=== PATIENT | female | born 1930 | race Caucasian/White ===

== ENCOUNTER 2018-07-28 15:31 | Emergency (ER) | payer MEDICARE, OTHER ==
[~2018-07-28] VITALS: Ht 160 cm; Wt 49.9 kg
[2018-07-28 15:31] VITALS: BP 122/62
[~2018-07-28 15:31] MED LIST: UNOBMED
--- NOTE | 2018-07-28 15:31 | NUR ---
ED Nurse Note: PT BROUGHT IN BY AMBULANCE FROM [facility]. AOX2. PT PRESENTS WITH LACERATION TO RIGHT LOWER EXTREMITY - UNKNOWN ETIOLOGY. PER EMS, EVENT WAS UNWITNESSED. PT PRESENTS WITH 2 INCH PACERATION TO RIGHT LEG. SITE NOT ACTIVELY BLEEDING. CIRCULATION AND SENSATION INTACT, CAP REFILL <3 SECONDS, FULL ROM OF EXTREMITY, AND 5/5 MUSCLE STRENGTH.
[2018-07-28] MEDS ORDERED: Lidocaine 1% 10mg/ml/Epi 0.005mg/ml 30ml vial INJ ONE ×2 (15:39→15:45)
[2018-07-28] MEDS ORDERED: Tetanus/Diptheria/Pertussis Vaccine 0.5ml Syr IM ONE (15:45)
--- NOTE | 2018-07-28 16:04 | Emergency Room Report ---
History of Present Illness General Chief Complaint: Laceration Source: Patient, EMS Present Illness HPI Patient is an 87-year-old female brought in by EMS after recent injury while sitting her wheelchair. Prior history of dementia. Patient was noted to have right lower extremity injury. Patient had not had a recent tetanus vaccine. Patient had no other injuries. She had not fallen. History is limited by patient's dementia. Allergies: Coded Allergies: ASPIRIN (Verified Allergy, Unknown, Altered Mental Status, 07/28/18) Patient History Now: No Nursing Documentation-[facility] Past Medical History: No History, Except For Hx Cardiac Problems: Yes Hx Hypertension: Yes Hx Diabetes: Yes - DM II Hx Cancer: No Review of Systems All Other Systems: limited - by mental status Physical Exam Vital Signs Date Time Temp Pulse Resp B/P (MAP) Pulse Ox O2 Delivery O2 Flow Rate FiO2 07/28/18 15:25 97.2 54 18 119/53 95 Room Air General Appearance: Chronically Ill Head: normocephalic, atraumatic ENT: normal voice, other - decreased hearing Neck: full range of motion, supple Respiratory: no respiratory distress, speaking full sentences Cardiovascular #1: normal peripheral pulses Musculoskeletal: decreased range of mation Neurologic: alert, oriented x3, normal gait Psychiatric: mood/affect normal Skin: normal inspection, normal color, no rash, laceration - right lower extremity flap, 3cm Procedures Laceration/Wound Repair Laceration/Wound Repair : Consent: Emergent Wound Location: lower extremity Wound's Depth, Shape: superficial Wound Length (cm): 3 Wound Explored: clean Irrigated w/ Saline (ccs): 50 Betadine Prep?: Yes Anesthesia: Lidocaine w/ Epi Volume Anesthetic (ccs): 4 Wound Debrided: minimal Wound Repaired With: sutures Suture Size/Type: 4:0 Number of Sutures: 7 Layer Closure?: No Sterile Dressing Applied?: Yes Patient Tolerated: Well Complications: None Medical Decision Making Diagnostic Impression: Primary Impression: Laceration ER Course Patient presented for lower extremity injury. Differential diagnosis include was not limited to foreign body, arterial injury, vascular insufficiency among others. Patient has a benign exam and does not appear to require any further imaging or laboratory testing at this time patient was noted to have prior history of dementia. Patient was given tetanus vaccine. Patient's laceration was irrigated and closed with a sterile technique. Patient tolerated this well. I used absorbable sutures. Patient be sent back to nursing facility. Last Vital Signs Date Time Temp Pulse Resp B/P (MAP) Pulse Ox O2 Delivery O2 Flow Rate FiO2 07/28/18 15:31 98.1 62 17 122/62 98 Room Air Kang Tang MD Jul 28, 2018 16:04
[2018-07-28] MEDS ORDERED: Bacitracin Oint UD TOPIC ONE ×2 (16:14→16:30)
--- NOTE | 2018-07-28 16:18 | NUR ---
ED Nurse Note: LACERATION SUTURED BY DR. FRYE. BACITRACIN APPLIED TO SUTURE SITE. MYESHA EMT AT BEDSIDE TO WRAP SITE.
--- NOTE | 2018-07-28 16:28 | NUR ---
ED Nurse Note: [facility]. REPORT GIVEN TO BARBIE MCRAE. FACILITY READY TO ACCEPT PT. ETA FOR AMBULANCE [id number].
--- NOTE | 2018-07-28 17:13 | NUR ---
ED Nurse Note: [facility] AT BEDSIDE FOR PT TRANSPORT. REPORT GIVEN TO EMS. PT TAKEN BACK TO [facility] VIA AMBULANCE WITH ALL BELONGINGS ACCOMPANIED BY EMS.
[2018-07-28 17:14] VITALS: BP 128/64
== END 2018-07-28 17:20 | disposition home or self-care (01) ==
LOC: EDBD 15:31 → EMR 16:03
DX: S81.811A Laceration without foreign body, right lower leg, initial encounter (principal); X58.XXXA Exposure to other specified factors, initial encounter; Y92.199 Unspecified place in other specified residential institution as the place of occurrence of the external cause; Z23 Encounter for immunization; E11.9 Type 2 diabetes mellitus without complications; I10 Essential (primary) hypertension; Z88.6 Allergy status to analgesic agent
CPT/HCPCS: 90471; 90715; 99283

== ENCOUNTER 2018-10-05 13:47 | Inpatient (IN) | payer MEDICARE, OTHER ==
[~2018-10-05] VITALS: Ht 154.9 cm; Wt 54.6 kg
[2018-10-05 15:01] LABS: APPEARANCE,URINE CLOUDY; BILIRUBIN, URINE 1+ (NEGATIVE); COLOR,URINE BROWN; GLUCOSE, URINE (UA) NEGATIVE (NEGATIVE); KETONES,URINE NEGATIVE (NEGATIVE); LEUKOCYTE ESTERASE ,URINE 3+ (NEGATIVE); NITRITE,URINE POSITIVE (NEGATIVE); PH,URINE 5 (4.5-8.0); PROTEIN,URINE 2+ (NEGATIVE); UROBILINOGEN,URINE 1 MG/DL (0.0-1.0)
[2018-10-05 15:06] VITALS: BP 142/52
[2018-10-05 15:09] LABS: HEMOGLOBIN 14.3 G/DL (12.0-16.0); MEAN CORPUSCULAR VOLUME 96 FL (80-99); PLATELET COUNT 173 K/UL (150-450); RED BLOOD COUNT 4.59 M/UL (4.20-5.40); RED CELL DISTRIBUTION WIDTH 13.6 % (11.6-14.8)
[2018-10-05 15:11] LABS: ANION GAP 9 mmol/L (5-15); BLOOD UREA NITROGEN 30 mg/dL (7-18); CALCIUM 9.6 MG/DL (8.5-10.1); CARBON DIOXIDE 28 MMOL/L (21-32); CHLORIDE 106 MMOL/L (98-107); CREATININE 1.1 MG/DL (0.55-1.30); POTASSIUM 4.1 MMOL/L (3.5-5.1); SODIUM 143 MMOL/L (136-145)
[2018-10-05 15:19] LABS: WHITE BLOOD COUNT 26.1 K/UL (4.8-10.8)
[2018-10-05 15:22] LABS: ALANINE AMINOTRANSFERASE 58 U/L (12-78); ALBUMIN 3.3 G/DL (3.4-5.0); ALBUMIN/GLOBULIN RATIO 0.8 (1.0-2.7); ALKALINE PHOSPHATASE 108 U/L (46-116); ASPARTATE AMINO TRANSFERASE 20 U/L (15-37); BILIRUBIN,TOTAL 0.3 MG/DL (0.2-1.0); CKMB 1.8 NG/ML (0.0-3.6); CREATINE KINASE 45 U/L (26-308)
[2018-10-05] MEDS ORDERED: cefTRIAXone 1 GM in NS 55 ML IVPB ONE (15:30)
--- NOTE | 2018-10-05 15:38 | Diagnostic Imaging Report ---
Indication: Shortness of breath Technique: One view of the chest Comparison: 08/26/2012 Findings: Suboptimal inspiration. The heart is borderline enlarged. Lungs and pleural spaces are clear. There is mild thoracolumbar scoliotic deformity. No significant interim change. Impression: No acute process
--- NOTE | 2018-10-05 16:03 | Emergency Room Report ---
History of Present Illness General Chief Complaint: Abnormal Labs Source: Patient, Medical Record Present Illness HPI 87-year-old female presents ED for evaluation. Patient [facility] by EMS from [facility] for abnormal labs. Had blood work done a few days ago which showed high white cell count. Upon arrival patient states she feels okay. Denies any fevers or chills. Denies any chest pain. Denies any cough. No other aggravating or relieving factors. Denies any other associated symptoms Allergies: Coded Allergies: ASPIRIN (Verified Allergy, Unknown, Altered Mental Status, 07/28/18) Patient History Past Medical History: DM, HTN Past Surgical History: none Pertinent Family History: none Social History: Denies: smoking, alcohol use, drug use Now: No Immunizations: UTD Reviewed Nursing Documentation: PMH: Agreed; PSxH: Agreed Nursing Documentation-PMH Past Medical History: No History, Except For Hx Cardiac Problems: Yes Hx Hypertension: Yes Hx Diabetes: Yes - DM II Hx Cancer: No Review of Systems All Other Systems: negative except mentioned in HPI Physical Exam Vital Signs Date Time Temp Pulse Resp B/P (MAP) Pulse Ox O2 Delivery O2 Flow Rate FiO2 10/05/18 13:40 98.4 57 18 122/57 95 Room Air Sp02 EP Interpretation: reviewed, normal General Appearance: no apparent distress, alert, GCS 15, non-toxic Head: normocephalic, atraumatic Eyes: bilateral eye normal inspection, bilateral eye PERRL ENT: hearing grossly normal, normal pharynx, no angioedema, normal voice Neck: full range of motion, supple/symm/no masses Respiratory: chest non-tender, lungs clear, normal breath sounds, speaking full sentences Cardiovascular #1: regular rate, rhythm, no edema Cardiovascular #2: 2+ carotid (R), 2+ carotid (L), 2+ radial (R), 2+ radial (L) , 2+ dorsalis pedis (R), 2+ dorsalis pedis (L) Gastrointestinal: normal bowel sounds, non tender, soft, non-distended, no guarding, no rebound Rectal: deferred Genitourinary: normal inspection, no CVA tenderness Musculoskeletal: back normal, gait/station normal, normal range of motion, non- tender Neurologic: alert, oriented x3, responsive, motor strength/tone normal, sensory intact, speech normal Psychiatric: judgement/insight normal, memory normal, mood/affect normal, no suicidal/homicidal ideation Reflexes: 3+ bicep (R), 3+ bicep (L), 3+ tricep (R), 3+ tricep (L), 3+ knee (R) , 3+ knee (L) Skin: normal color, warm/dry, well hydrated, rash - erythematous papular rash to arms, chest Lymphatic: no adenopathy Medical Decision Making Diagnostic Impression: Primary Impression: UTI (urinary tract infection) Qualified Codes: N39.0 - Urinary tract infection, site not specified Additional Impressions: Rash Leukocytosis Qualified Codes: D72.829 - Elevated white blood cell count, unspecified ER Course Hospital Course 87 yo F presents with elevated WBC count on recent labs, also has rash Differential diagnoses include: Pneumonia, UTI, sepsis, dehydration, VT/ unstable angina Clinical course Patient placed on stretcher. On monitoring manager with stable vitals are ED course. After initial history and physical, I ordered labs, IV fluids, EKG, chest x-ray, blood cultures, UA. Labs - electrolytes ok, marked leukocytosis, lactic ok, UA grossly positive for UTI EKG -- sinus bradycardia, no acute ischemic changes interpreted by me CXR - no acute process Abx given. Case discussed with Dr Renteria and they agreed to admit patient to their service for further care and support I feel this is a highly complex case requiring extensive working including EKG/ Rhythm strip, Xray/CT/US, Blood/urine lab work, repeat exams while in ED, and administration of strong opiates/narcotics for pain control, admission to hospital or close patient follow up. Diagnosis - UTI, leukocytosis, rash Patient admitted to floor in serious condition Labs Test 10/05/18 14:50 White Blood Count 26.1 K/UL (4.8-10.8) Red Blood Count 4.59 M/UL (4.20-5.40) Hemoglobin 14.3 G/DL (12.0-16.0) Hematocrit 44.0 % (37.0-47.0) Mean Corpuscular Volume 96 FL (80-99) Mean Corpuscular Hemoglobin 31.2 PG (27.0-31.0) Mean Corpuscular Hemoglobin Concent 32.5 G/DL (32.0-36.0) Red Cell Distribution Width 13.6 % (11.6-14.8) Platelet Count 173 K/UL (150-450) Mean Platelet Volume 7.8 FL (6.5-10.1) Neutrophils (%) (Auto) % (45.0-75.0) Lymphocytes (%) (Auto) % (20.0-45.0) Monocytes (%) (Auto) % (1.0-10.0) Eosinophils (%) (Auto) % (0.0-3.0) Basophils (%) (Auto) % (0.0-2.0) Urine Color Brown Urine Appearance Cloudy Urine pH 5 (4.5-8.0) Urine Specific Evans 1.025 (1.005-1.035) Urine Protein 2+ (NEGATIVE) Urine Glucose (UA) Negative (NEGATIVE) Urine Ketones Negative (NEGATIVE) Urine Blood 2+ (NEGATIVE) Urine Nitrite Positive (NEGATIVE) Urine Bilirubin 1+ (NEGATIVE) Urine Ictotest Negative (NEGATIVE) Urine Urobilinogen 1 MG/DL (0.0-1.0) Urine Leukocyte Esterase 3+ (NEGATIVE) Urine RBC 2-4 /HPF (0 - 2) Urine WBC Tntc /HPF (0 - 2) Urine Squamous Epithelial Cells Occasional /LPF Urine Bacteria Many /HPF (NONE) Sodium Level 143 MMOL/L (136-145) Potassium Level 4.1 MMOL/L (3.5-5.1) Chloride Level 106 MMOL/L (98-107) Carbon Dioxide Level 28 MMOL/L (21-32) Anion Gap 9 mmol/L (5-15) Blood Urea Nitrogen 30 mg/dL (7-18) Creatinine 1.1 MG/DL (0.55-1.30) Estimat Glomerular Filtration Rate mL/min (>60) Glucose Level 107 MG/DL (74-106) Lactic Acid Level 1.50 mmol/L (0.4-2.0) Calcium Level 9.6 MG/DL (8.5-10.1) Total Bilirubin 0.3 MG/DL (0.2-1.0) Aspartate Amino Transf (AST/SGOT) 20 U/L (15-37) Alanine Aminotransferase (ALT/SGPT) 58 U/L (12-78) Alkaline Phosphatase 108 U/L (46-116) Total Creatine Kinase 45 U/L (26-308) Creatine Kinase MB 1.8 NG/ML (0.0-3.6) Creatine Kinase MB Relative Index 4.0 Troponin I 0.000 ng/mL (0.000-0.056) Pro-B-Type Natriuretic Peptide 1493 pg/mL (0-125) Total Protein 7.3 G/DL (6.4-8.2) Albumin 3.3 G/DL (3.4-5.0) Globulin 4.0 g/dL Albumin/Globulin Ratio 0.8 (1.0-2.7) EKG Diagnostic Results Rate: bradycardiac Rhythm: NSR ST Segments: no acute changes ASA given to the pt in ED: No Rhythm Strip Diag. Results EP Interpretation: yes Rhythm: NSR, no PVC's, no ectopy Chest X-Ray Diagnostic Results Chest X-Ray Diagnostic Results : Chest X-Ray Ordered: Yes # of Views/Limited/Complete: 1 View Indication: Other EP Interpretation: Yes Interpretation: no consolidation, no effusion, no pneumothorax, no acute cardiopulmonary disease Impression: No acute disease Electronically Signed by: Electronically signed by Jayy Davis MD Last Vital Signs Date Time Temp Pulse Resp B/P (MAP) Pulse Ox O2 Delivery O2 Flow Rate FiO2 10/05/18 15:06 52 15 142/52 100 Room Air 10/05/18 13:40 98.4 Status: improved Disposition: ADMITTED INPATIENT Condition: Serious Referrals: Ozzie Renteria MD (PCP) Jayy Davis MD Oct 05, 2018 16:03
[2018-10-05] MEDS ORDERED: XARELTO10 MG ORAL (16:11)
[2018-10-05] MEDS ORDERED: LOSARTAN POTASS50 MG ORAL (16:11)
[2018-10-05] MEDS ORDERED: PANTOPRAZOLE SO40 MG ORAL (16:11)
[2018-10-05] MEDS ORDERED: LEVOTHYROXINE125 MCG ORAL (16:11)
[2018-10-05] MEDS ORDERED: MULTIVITAMINS1 EAC8 ORAL (16:11)
[2018-10-05] MEDS ORDERED: VOLTAREN100 G1 TP (16:11)
[2018-10-05] MEDS ORDERED: VITAMIN C500 M1 ORAL (16:11)
[2018-10-05 17:23] VITALS: BP 144/52
[2018-10-05] MEDS ORDERED: Vancomycin 1gm/D5W 275ml IVPB SCH ×2 (18:00)
[2018-10-05] MEDS ORDERED: MILK OF MA400 MG/51 ORAL (18:03)
[2018-10-05] MEDS ORDERED: BISACODYL5 MG ORAL (18:03)
[2018-10-05] MEDS ORDERED: ACETAMINOPHEN325 M1 ORAL (18:06)
[2018-10-05] MEDS ORDERED: Bisacodyl EC 5mg tab ORAL PRN (18:15)
[2018-10-05] MEDS ORDERED: Milk of Magnesia 30ml Ud ORAL PRN (18:15)
[2018-10-05 20:00] VITALS: BP 107/47
[2018-10-05] MEDS ORDERED: Heparin 5000 units/ml inj SUBQ SCH (21:00)
[2018-10-05] MEDS: Zoysn 3.37gm in NS 100ML IVPB SCH (21:12)
[2018-10-06] VITALS: BP 109/46
[2018-10-06 04:00] VITALS: BP 130/65
[2018-10-06] MEDS: Zoysn 3.37gm in NS 100ML IVPB SCH (05:47)
[2018-10-06 06:18] LABS: HEMATOCRIT 39.1 % (37.0-47.0); HEMOGLOBIN 12.9 G/DL (12.0-16.0); MEAN CORPUSCULAR VOLUME 96 FL (80-99); PLATELET COUNT 181 K/UL (150-450); RED BLOOD COUNT 4.06 M/UL (4.20-5.40); RED CELL DISTRIBUTION WIDTH 13.5 % (11.6-14.8); WHITE BLOOD COUNT 19.8 K/UL (4.8-10.8)
[2018-10-06 06:35] LABS: ANION GAP 8 mmol/L (5-15); BLOOD UREA NITROGEN 26 mg/dL (7-18); CALCIUM 8.6 MG/DL (8.5-10.1); CARBON DIOXIDE 26 MMOL/L (21-32); CHLORIDE 108 MMOL/L (98-107); POTASSIUM 3.9 MMOL/L (3.5-5.1); SODIUM 142 MMOL/L (136-145)
[2018-10-06 08:00] VITALS: BP 107/45
[2018-10-06] MEDS: Losartan 50mg tab ORAL SCH (08:33)
[2018-10-06] MEDS: Ascorbic Acid 500mg tab ORAL SCH (08:34)
[2018-10-06] MEDS: Multivitamin w/Minerals tab ORAL SCH (08:34)
[2018-10-06 12:00] VITALS: BP 159/54
--- NOTE | 2018-10-06 12:15 | History and Physical Report ---
DATE OF ADMISSION: 10/05/2018 REASON FOR ADMISSION: Possible sepsis. HISTORY: This is an 87-year-old female, who has had recent admission to the [facility]. The patient presents with significant leukocytosis, brought in for IV antibiotics and further evaluation and ID management. The patient unable to give much in the way of history. No recent fevers or chills. No chest pain. No diarrhea. No cough. No sputum production. The patient's care discussed and reviewed. The ER notes were reviewed and intermediate notes were reviewed. Care discussed with the intermediate staff. No other associated symptoms. No falls. No trauma. PAST MEDICAL HISTORY: Diabetes and hypertension. MEDICATIONS: Reviewed. ALLERGIES: Reviewed. SOCIAL HISTORY: Resides at [facility]. Nonsmoker and nondrinker. REVIEW OF SYSTEMS: Unobtainable. PHYSICAL EXAMINATION: GENERAL: A well-developed female of advanced age, confused. VITAL SIGNS: Blood pressure 130/65, pulse 53, respirations 17, sats 100%, and temperature 97.8. HEENT: Fairly negative. NECK: Supple. No adenopathy. LUNGS: With moderate breath sounds. No rhonchi. No wheezes. CARDIAC: Slightly bradycardic. No murmurs or rubs. ABDOMEN: Soft, nontender, nondistended. EXTREMITIES: No cyanosis or clubbing. Reduced range of motion. NEUROLOGIC: Confused, overall nonfocal. LABORATORY DATA: Reviewed. White cell count notable for initial of 26.1, currently 19.8. Chemistry is notable for BUN of 26. The patient's albumin is 3.3. IMPRESSION: Leukocytosis, possible sepsis, acute renal failure, mild protein-calorie malnutrition, acute on chronic encephalopathy, hypothyroidism, hypertension, and bradycardia. RECOMMENDATIONS: Supportive care. Resume medications on Xarelto for history of PE and hypercoagulable state. IV hydration. IV antibiotics. ID evaluation. Monitor white cell count and discharge the patient when stable. Supportive care and close followup care. Ozzie Renteria M.D. DR: JEROME JOB#: [id number] CC:
[2018-10-06] MEDS: Cefepime HCl 1 GM in D5W 55 ML IVPB SCH (13:25)
[2018-10-06 16:00] VITALS: BP 142/56
--- NOTE | 2018-10-06 16:15 | Consultation ---
DATE OF CONSULTATION: 10/06/2018 INFECTIOUS DISEASE CONSULTATION CONSULTING PHYSICIAN: Samantha Velasco M.D. REFERRING PHYSICIAN: Ozzie Renteria M.D. REASON FOR CONSULTATION: Urinary tract infection. HISTORY OF PRESENT ILLNESS: This is an 87-year-old lady with history of diabetes, hypertension and coronary artery disease, who came in from a [place] [facility] facility with the leukocytosis. She was found to have urinary tract infection. She also appears to have an allergic reaction, and an Infectious Disease consultation has been obtained for antibiotics. PAST MEDICAL HISTORY: 1. History of diabetes. 2. Hypertension. 3. Coronary artery disease. SOCIAL HISTORY: Unknown. FAMILY HISTORY: Unknown. REVIEW OF SYSTEMS: Unable to obtain currently. MEDICATIONS: As an inpatient, she is on IV vancomycin, Xarelto, ascorbic acid, Cozaar, multivitamin, Protonix, levothyroxine, Zosyn, Dulcolax, milk of magnesia, and Tylenol. ALLERGIES: She is allergic to aspirin. PHYSICAL EXAMINATION: VITAL SIGNS: Temperature 98.1, T-max of 98.4, pulse 54, respiratory rate 17, and blood pressure 107/45. O2 saturation of 100%. HEENT: Pupils are equally reactive to light and accommodation. Mouth appears clean without thrush. NECK: Supple. No adenopathy. No JVD. CARDIOVASCULAR: Regular rate and rhythm. No murmurs. LUNGS: Clear to auscultation bilaterally. No crackles. No wheezes. ABDOMEN: Soft and nontender. No organomegaly. EXTREMITIES: No cyanosis, no clubbing, no edema. SKIN: Erythematous rash noted on her neck, back, chest, abdomen, and thigh. LABORATORY DATA: White count of 26 yesterday, white count 19 today; hemoglobin 12.9; hematocrit 39.1; MCV 96; and platelet count 181, with neutrophils of 29%. Sodium 142, potassium 3.9, chloride 108, bicarb 26, BUN 26, and creatinine 1. Glucose 91. Calcium 8.6. Total bilirubin 0.3. AST 20, ALT 58, and alkaline phosphatase 108. CK 45, CK-MB 1.8. Troponin 0. Beta-natriuretic peptide 1493. Total protein 7.3. Albumin 3.3. UA showing too numerous to count white cells. Urine culture showing gram-negative rods more than 100,000 colonies. Chest x-ray showing no acute process. ASSESSMENT: This is an 87-year-old lady with history of diabetes and hypertension, who comes in and is found to have, 1. Urinary tract infection with gram-negative rods. 2. Leukocytosis is improving. 3. Possible allergic drug reaction. PLAN: 1. Discontinue vancomycin and Zosyn. 2. We will start the patient on cefepime. 3. We will follow up cultures and adjust antibiotics accordingly. I would like to thank, Dr. Renteria, for this consultation. Samantha Velasco M.D. DR: CAROL JOB#: [id number] CC:
[2018-10-06] MEDS: Xarelto 15mg tab ORAL SCH (16:42)
[2018-10-06] MEDS ORDERED: Vancomycin 500mg/D5W 110ml IVPB SCH ×2 (18:00)
--- NOTE | 2018-10-06 18:22 | Cardiology Report ---
APPROVED REPORT EKG Measurement Heart [id number] Sinus bradycardia Left axis deviation Left ventricular hypertrophy with repolarization abnormality Abnormal ECG
[2018-10-06 20:00] VITALS: BP 140/62
--- NOTE | 2018-10-06 22:40 | CDS Physician Query ---
Clarification is required for compliance, coding accuracy, and to reflect severity of illness for this patient Dear Dr. Renteria Date: 10/06/2018 [address] and place X in appropriate box Patient is admitted with Sepsis and UTI Acute on chronic Encephalopathy has been documented in H&P. Can you please clarify the type of encephalopathy: [ ] Metabolic Encephalopathy [ ] Toxic Encephalopathy [ ] Toxic Metabolic Encephalopathy [ ] Encephalopathy Unspecified [ ] Other: [ ] Clinically Undetermined Present on admission: [ ] Yes [ ] No [ ] Clinically Undetermined Physician signature Date Please also document in your Progress Notes and/or Discharge Summary and indicate if the condition was present on admission.
[2018-10-07] VITALS (7 sets, daily range): BP systolic 90–154; BP diastolic 50–66
[2018-10-07] MEDS: Losartan 50mg tab ORAL SCH (09:00)
[2018-10-07] MEDS: Multivitamin w/Minerals tab ORAL SCH (09:54)
[2018-10-07] MEDS: Ascorbic Acid 500mg tab ORAL SCH (09:54)
--- NOTE | 2018-10-07 14:21 | Pulmonology Progress Note ---
Assessment/Plan Assessment/Plan Pulmonary Progress Note HPI: Patient is an 87-year-old female, who has had recent admission to the medical center. The patient presents with significant leukocytosis, brought in for IV antibiotics and further evaluation and ID management. Noted to have Urinary Tract Infection, CXR NAD. The patient unable to give much in the way of history. No recent fevers or chills. No chest pain. No diarrhea. No cough. No sputum production. The patient's care discussed and reviewed. The ER notes were reviewed and assisted notes were reviewed. Care discussed with the assisted staff. No other associated symptoms. No falls. No trauma. PAST MEDICAL HISTORY: Diabetes and hypertension. MEDICATIONS: Reviewed. ALLERGIES: Reviewed. SOCIAL HISTORY: Resides at [facility]. Nonsmoker and nondrinker. REVIEW OF SYSTEMS: Unobtainable. PHYSICAL EXAMINATION: GENERAL: A well-developed female of advanced age, confused. VITAL SIGNS NOTED HEENT: Fairly negative. NECK: Supple. No adenopathy. LUNGS: With moderate breath sounds. No rhonchi. No wheezes. CARDIAC: Slightly bradycardic. No murmurs or rubs. ABDOMEN: Soft, nontender, nondistended. EXTREMITIES: No cyanosis or clubbing. Reduced range of motion. NEUROLOGIC: Confused, overall nonfocal. LABORATORY DATA NOTED: Reviewed. White cell count notable for initial of 26.1, currently 19.8. Chemistry is notable for BUN of 26. The patient's albumin is 3.3. IMPRESSION: Leukocytosis, UTI, sepsis, acute renal failure, mild protein-calorie malnutrition, acute on chronic encephalopathy, hypothyroidism, hypertension, and bradycardia. RECOMMENDATIONS: Supportive care. Resume medications on Xarelto for history of PE and hypercoagulable state. IV hydration. IV antibiotics. ID evaluation. Monitor white cell count and discharge the patient when stable. Supportive care and close followup care. Subjective ROS Limited/Unobtainable: No Allergies: Coded Allergies: ASPIRIN (Verified Allergy, Unknown, Altered Mental Status, 07/28/18) Objective Last 24 Hour Vital Signs Date Time Temp Pulse Resp B/P (MAP) Pulse Ox O2 Delivery O2 Flow Rate FiO2 10/07/18 12:00 97.3 60 18 117/55 (75) 99 10/07/18 09:46 98.0 54 24 90/54 (66) 90 4/17/19 09:12 Room Air 10/07/18 09:00 90/54 10/07/18 08:00 98.0 60 20 90/54 (66) 98 10/07/18 04:00 97.0 62 20 112/57 (75) 96 10/07/18 00:00 98.1 52 16 154/50 (84) 97 10/06/18 21:00 Room Air 10/06/18 20:00 98.1 68 16 140/62 (88) 95 10/06/18 16:00 98.0 55 18 142/56 (84) 99 Intake and Output 10/06/18 10/07/18 19:00 07:00 Intake Total 1195 ml 700 ml Output Total 900 ml 1000 ml Balance 295 ml -300 ml Intake Oral 840 ml IV Total 355 ml 700 ml Output Urine Total 900 ml 1000 ml Microbiology Date/Time Source Procedure Growth Status 10/05/18 14:50 Blood Blood Culture - Preliminary NO GROWTH AFTER 24 HOURS Resulted 10/05/18 14:40 Blood Blood Culture - Preliminary NO GROWTH AFTER 24 HOURS Resulted 10/05/18 14:50 Urine,Clean Catch Urine Culture - Final Proteus Mirabilis Complete 10/05/18 14:50 Rectum Received Current Medications Medications (Trade) Dose Ordered Sig/Juan Route PRN Reason Start Time Stop Time Status Last Admin Dose Admin Acetaminophen (Tylenol) 650 mg Q4H PRN ORAL pain and Temp>101F 10/05/18 18:15 11/04/18 18:14 Ascorbic Acid (Vitamin C) 500 mg DAILY ORAL 10/06/18 09:00 11/05/18 08:59 10/07/18 09:54 Bisacodyl (Dulcolax) 10 mg DAILYPRN PRN ORAL Constipation 10/05/18 18:15 11/04/18 18:14 Cefepime HCl 1 gm/ Dextrose 55 ml @ 110 mls/hr Q24H IVPB 10/06/18 13:00 10/13/18 12:59 10/06/18 13:25 Levothyroxine Sodium (Synthroid) 100 mcg BEFORE BREAKFAST ORAL 10/06/18 06:30 11/05/18 06:29 10/07/18 06:09 Losartan Potassium (Cozaar) 50 mg DAILY ORAL 10/06/18 09:00 11/05/18 08:59 Magnesium Hydroxide (Mom) 30 ml DAILYPRN PRN ORAL Constipation 10/05/18 18:15 11/04/18 18:14 Multivitamins Therapeutic (Therapeutic Multivitamin) 1 ea DAILY ORAL 10/06/18 09:00 11/05/18 08:59 10/07/18 09:54 Pantoprazole (Protonix) 40 mg DAILY ORAL 10/06/18 09:00 11/05/18 08:59 10/07/18 09:54 Rivaroxaban (Xarelto) 15 mg QPM ORAL 10/06/18 16:30 11/05/18 16:29 10/06/18 16:42 Sodium Chloride 1,000 ml @ 100 mls/hr Q10H IV 10/05/18 17:45 11/04/18 17:44 10/07/18 09:54 King Veliz MD Oct 07, 2018 14:21
[2018-10-07] MEDS ORDERED: DiphenhydrAMINE 50mg/ml Inj IVP PRN (16:45)
[2018-10-07] MEDS: Cefepime HCl 1 GM in D5W 55 ML IVPB SCH (16:48)
[2018-10-07] MEDS: Xarelto 15mg tab ORAL SCH (16:48)
[2018-10-08] VITALS: BP 131/83
[2018-10-08 04:00] VITALS: BP 147/53
[2018-10-08 08:00] VITALS: BP 121/47
--- NOTE | 2018-10-08 08:42 | General Progress Note ---
Assessment/Plan Assessment: IMPRESSION: Leukocytosis, possible sepsis, acute renal failure, mild protein-calorie malnutrition, acute on chronic encephalopathy, hypothyroidism, hypertension, and bradycardia. PLAN care noted IV antibiotics ID follow up and recommendations recheck cbc monitor as is once stable, will dc back to snf impression, plan, and exam edited and reviewed in detail care discussed with RN Subjective Allergies: Coded Allergies: ASPIRIN (Verified Allergy, Unknown, Altered Mental Status, 07/28/18) Subjective unable no distress Objective Last 24 Hour Vital Signs Date Time Temp Pulse Resp B/P (MAP) Pulse Ox O2 Delivery O2 Flow Rate FiO2 10/08/18 04:00 98.3 60 18 147/53 (84) 98 10/08/18 00:00 98.9 60 18 131/83 (99) 96 10/07/18 21:00 Room Air 10/07/18 20:00 98.2 60 18 107/66 (80) 94 10/07/18 16:00 98.0 51 18 128/56 (80) 99 10/07/18 12:00 97.3 60 18 117/55 (75) 99 10/07/18 09:46 98.0 54 24 90/54 (66) 90 10/07/18 09:12 Room Air 10/07/18 09:00 90/54 Intake and Output 10/07/18 10/08/18 19:00 07:00 Intake Total 700 ml 1100 ml Output Total 600 ml 250 ml Balance 100 ml 850 ml Intake Oral 600 ml IV Total 100 ml 1100 ml Output Urine Total 600 ml 250 ml Height (Feet): 5 Height (Inches): 1.00 Weight (Pounds): 120 Objective PHYSICAL EXAMINATION: GENERAL: A well-developed female of advanced age, confused. no distress HEENT: Fairly negative. NECK: Supple. No adenopathy. LUNGS: With moderate breath sounds. No rhonchi. No wheezes. CARDIAC: Slightly bradycardic. No murmurs or rubs. ABDOMEN: Soft, nontender, nondistended. EXTREMITIES: No cyanosis or clubbing. Reduced range of motion. NEUROLOGIC: Confused, overall nonfocal. Ozzie Renteria MD Oct 08, 2018 08:42
[2018-10-08] MEDS: Ascorbic Acid 500mg tab ORAL SCH (09:01)
[2018-10-08] MEDS: Multivitamin w/Minerals tab ORAL SCH (09:01)
[2018-10-08] MEDS: Losartan 50mg tab ORAL SCH (09:01)
[2018-10-08 11:18] LABS: HEMATOCRIT 36.6 % (37.0-47.0); HEMOGLOBIN 12.4 G/DL (12.0-16.0); MEAN CORPUSCULAR VOLUME 94 FL (80-99); PLATELET COUNT 165 K/UL (150-450); RED BLOOD COUNT 3.88 M/UL (4.20-5.40); RED CELL DISTRIBUTION WIDTH 13.1 % (11.6-14.8)
[2018-10-08 12:00] VITALS: BP 101/42
--- NOTE | 2018-10-08 12:57 | Infectious Diseases Prog Note ---
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 Dementia DM HPN Hypothyroidism P; change Cefepime to Rocephin F/U CBC Subjective ROS Limited/Unobtainable: Yes Neurologic: Reports: confusion, other - on restraint Allergies: Coded Allergies: ASPIRIN (Verified Allergy, Unknown, Altered Mental Status, 07/28/18) Objective Vital Signs Last 24 Hour Vital Signs Date Time Temp Pulse Resp B/P (MAP) Pulse Ox O2 Delivery O2 Flow Rate FiO2 10/08/18 12:00 97.4 54 18 101/42 (61) 99 10/08/18 09:01 121/47 10/08/18 09:00 Room Air 10/08/18 08:00 97.6 53 18 121/47 (71) 99 10/08/18 04:00 98.3 60 18 147/53 (84) 98 10/08/18 00:00 98.9 60 18 131/83 (99) 96 10/07/18 21:00 Room Air 10/07/18 20:00 98.2 60 18 107/66 (80) 94 10/07/18 16:00 98.0 51 18 128/56 (80) 99 Height (Feet): 5 Height (Inches): 1.00 Weight (Pounds): 120 General Appearance: no acute distress HEENT: mucous membranes moist Respiratory/Chest: lungs clear Cardiovascular: bradycardia Abdomen: soft, non tender Extremities: no edema Skin: rash, other - in upper body Neurologic/Psychiatric: alert, responsive, disoriented Microbiology Date/Time Source Procedure Growth Status 10/05/18 14:50 Blood Blood Culture - Preliminary NO GROWTH AFTER 48 HOURS Resulted 10/05/18 14:40 Blood Blood Culture - Preliminary NO GROWTH AFTER 48 HOURS Resulted 10/05/18 14:50 Nasal Nares MRSA Culture - Final NO METHICILLIN RESISTANT STAPH AUREUS... Complete 10/05/18 14:50 Nasal Nares MRSA Culture - Final NO METHICILLIN RESISTANT STAPH AUREUS... Complete 10/05/18 14:50 Urine,Clean Catch Urine Culture - Final Proteus Mirabilis Complete 10/05/18 14:50 Rectum VRE Culture - Final Enterococcus Faecium - Vre Complete Laboratory Tests Test 10/08/18 10:15 White Blood Count 24.0 K/UL (4.8-10.8) *H Red Blood Count 3.88 M/UL (4.20-5.40) L Hemoglobin 12.4 G/DL (12.0-16.0) Hematocrit 36.6 % (37.0-47.0) L Mean Corpuscular Volume 94 FL (80-99) Mean Corpuscular Hemoglobin 32.0 PG (27.0-31.0) H Mean Corpuscular Hemoglobin Concent 33.9 G/DL (32.0-36.0) Red Cell Distribution Width 13.1 % (11.6-14.8) Platelet Count 165 K/UL (150-450) Mean Platelet Volume 8.0 FL (6.5-10.1) Neutrophils (%) (Auto) % (45.0-75.0) Lymphocytes (%) (Auto) % (20.0-45.0) Monocytes (%) (Auto) % (1.0-10.0) Eosinophils (%) (Auto) % (0.0-3.0) Basophils (%) (Auto) % (0.0-2.0) Differential Total Cells Counted 100 Neutrophils % (Manual) 61 % (45-75) Lymphocytes % (Manual) 37 % (20-45) Monocytes % (Manual) 2 % (1-10) Eosinophils % (Manual) 0 % (0-3) Basophils % (Manual) 0 % (0-2) Band Neutrophils 0 % (0-8) Platelet Estimate Adequate Platelet Morphology Normal Current Medications Medications (Trade) Dose Ordered Sig/Juan Route PRN Reason Start Time Stop Time Status Last Admin Dose Admin Acetaminophen (Tylenol) 650 mg Q4H PRN ORAL pain and Temp>101F 10/05/18 18:15 11/04/18 18:14 Ascorbic Acid (Vitamin C) 500 mg DAILY ORAL 10/06/18 09:00 11/05/18 08:59 10/08/18 09:01 Bisacodyl (Dulcolax) 10 mg DAILYPRN PRN ORAL Constipation 10/05/18 18:15 11/04/18 18:14 Cefepime HCl 1 gm/ Dextrose 55 ml @ 110 mls/hr Q24H IVPB 10/06/18 13:00 10/13/18 12:59 10/07/18 16:48 Diphenhydramine HCl (Benadryl) 25 mg Q8H PRN IVP Itching 10/07/18 16:45 11/06/18 16:44 10/07/18 16:48 Levothyroxine Sodium (Synthroid) 100 mcg BEFORE BREAKFAST ORAL 10/06/18 06:30 11/05/18 06:29 10/08/18 05:35 Losartan Potassium (Cozaar) 50 mg DAILY ORAL 10/06/18 09:00 11/05/18 08:59 10/08/18 09:01 Magnesium Hydroxide (Mom) 30 ml DAILYPRN PRN ORAL Constipation 10/05/18 18:15 11/04/18 18:14 Multivitamins Therapeutic (Therapeutic Multivitamin) 1 ea DAILY ORAL 10/06/18 09:00 11/05/18 08:59 10/08/18 09:01 Pantoprazole (Protonix) 40 mg DAILY ORAL 10/06/18 09:00 11/05/18 08:59 10/08/18 09:01 Rivaroxaban (Xarelto) 15 mg QPM ORAL 10/06/18 16:30 11/05/18 16:29 10/07/18 16:48 Sodium Chloride 1,000 ml @ 100 mls/hr Q10H IV 10/05/18 17:45 11/04/18 17:44 10/08/18 04:29 Robbin Flaherty MD Oct 08, 2018 12:57
[2018-10-08] MEDS: cefTRIAXone 1 GM in D5W 55 ML IVPB SCH (14:01)
[2018-10-08 16:00] VITALS: BP 121/72
[2018-10-08] MEDS: Xarelto 15mg tab ORAL SCH (16:37)
[2018-10-08 20:00] VITALS: BP 99/51
[2018-10-09] VITALS: BP 109/56
[2018-10-09 04:00] VITALS: BP 124/53
[2018-10-09 06:33] LABS: HEMATOCRIT 36.1 % (37.0-47.0); MEAN CORPUSCULAR VOLUME 96 FL (80-99); PLATELET COUNT 170 K/UL (150-450); RED BLOOD COUNT 3.78 M/UL (4.20-5.40); RED CELL DISTRIBUTION WIDTH 13.2 % (11.6-14.8)
[2018-10-09 07:09] LABS: WHITE BLOOD COUNT 23.9 K/UL (4.8-10.8)
[2018-10-09 08:00] VITALS: BP 127/55
[2018-10-09] MEDS: Ascorbic Acid 500mg tab ORAL SCH (08:13)
[2018-10-09] MEDS: Losartan 50mg tab ORAL SCH (08:13)
[2018-10-09] MEDS: Multivitamin w/Minerals tab ORAL SCH (08:14)
--- NOTE | 2018-10-09 10:02 | Infectious Diseases Prog Note ---
"Assessment/Plan Assessment/Plan antibiotics : ceftriaxone A 1. proteus UTI 2. leucocytosis 3. drug allergic reaction 4. rectal VRE colonization 5. diabetes mellitus 6. hypertension P 1. continue ceftriaxone [address] chest | abdomen | pelvis 3. will follow up cultures Subjective ROS Limited/Unobtainable: Yes Allergies: Coded Allergies: ASPIRIN (Verified Allergy, Unknown, Altered Mental Status, 07/28/18) Objective Vital Signs Last 24 Hour Vital Signs Date Time Temp Pulse Resp B/P (MAP) Pulse Ox O2 Delivery O2 Flow Rate FiO2 10/09/18 09:00 Room Air 10/09/18 08:13 127/55 10/09/18 08:00 98.2 55 17 127/55 (79) 100 10/09/18 04:00 98.2 59 17 124/53 (76) 100 10/09/18 00:00 97.9 57 15 109/56 (73) 97 10/08/18 20:35 Room Air 10/08/18 20:00 99.0 62 19 99/51 (67) 99 10/08/18 16:00 97.7 54 18 121/72 (88) 99 10/08/18 12:00 97.4 54 18 101/42 (61) 99 Height (Feet): 5 Height (Inches): 1.00 Weight (Pounds): 120 Respiratory/Chest: lungs clear Cardiovascular: normal rate, regular rhythm, no gallop/murmur Abdomen: soft, non tender Extremities: no edema Skin: rash - erythematous on chest, arms Microbiology Date/Time Source Procedure Growth Status 10/06/18 14:50 Rectum - Final NO CARBAPENEM-RESISTANT ENTEROBACTERI... Complete Laboratory Tests Test 10/08/18 10:15 10/09/18 05:50 White Blood Count 24.0 K/UL (4.8-10.8) *H 23.9 K/UL (4.8-10.8) *H Red Blood Count 3.88 M/UL (4.20-5.40) L 3.78 M/UL (4.20-5.40) L Hemoglobin 12.4 G/DL (12.0-16.0) 12.0 G/DL (12.0-16.0) Hematocrit 36.6 % (37.0-47.0) L 36.1 % (37.0-47.0) L Mean Corpuscular Volume 94 FL (80-99) 96 FL (80-99) Mean Corpuscular Hemoglobin 32.0 PG (27.0-31.0) H 31.9 PG (27.0-31.0) H Mean Corpuscular Hemoglobin Concent 33.9 G/DL (32.0-36.0) 33.3 G/DL (32.0-36.0) Red Cell Distribution Width 13.1 % (11.6-14.8) 13.2 % (11.6-14.8) Platelet Count 165 K/UL (150-450) 170 K/UL (150-450) Mean Platelet Volume 8.0 FL (6.5-10.1) 7.6 FL (6.5-10.1) Neutrophils (%) (Auto) % (45.0-75.0) % (45.0-75.0) Lymphocytes (%) (Auto) % (20.0-45.0) % (20.0-45.0) Monocytes (%) (Auto) % (1.0-10.0) % (1.0-10.0) Eosinophils (%) (Auto) % (0.0-3.0) % (0.0-3.0) Basophils (%) (Auto) % (0.0-2.0) % (0.0-2.0) Differential Total Cells Counted 100 100 Neutrophils % (Manual) 61 % (45-75) 40 % (45-75) L Lymphocytes % (Manual) 37 % (20-45) 53 % (20-45) H Monocytes % (Manual) 2 % (1-10) 4 % (1-10) Eosinophils % (Manual) 0 % (0-3) 2 % (0-3) Basophils % (Manual) 0 % (0-2) 1 % (0-2) Band Neutrophils 0 % (0-8) 0 % (0-8) Platelet Estimate Adequate Adequate Platelet Morphology Normal Normal Red Blood Cell Morphology Normal Current Medications Medications (Trade) Dose Ordered Sig/Juan Route PRN Reason Start Time Stop Time Status Last Admin Dose Admin Acetaminophen (Tylenol) 650 mg Q4H PRN ORAL pain and Temp>101F 10/05/18 18:15 11/04/18 18:14 Ascorbic Acid (Vitamin C) 500 mg DAILY ORAL 10/06/18 09:00 11/05/18 08:59 10/09/18 08:13 Bisacodyl (Dulcolax) 10 mg DAILYPRN PRN ORAL Constipation 10/05/18 18:15 11/04/18 18:14 Ceftriaxone Sodium 1 gm/ Dextrose 55 ml @ 110 mls/hr Q24H IVPB 10/08/18 14:00 10/15/18 13:59 10/08/18 14:01 Diphenhydramine HCl (Benadryl) 25 mg Q8H PRN IVP Itching 10/07/18 16:45 11/06/18 16:44 10/07/18 16:48 Levothyroxine Sodium (Synthroid) 100 mcg BEFORE BREAKFAST ORAL 10/06/18 06:30 11/05/18 06:29 10/09/18 06:03 Losartan Potassium (Cozaar) 50 mg DAILY ORAL 10/06/18 09:00 11/05/18 08:59 10/09/18 08:13 Magnesium Hydroxide (Mom) 30 ml DAILYPRN PRN ORAL Constipation 10/05/18 18:15 11/04/18 18:14 Multivitamins Therapeutic (Therapeutic Multivitamin) 1 ea DAILY ORAL 10/06/18 09:00 11/05/18 08:59 10/09/18 08:14 Pantoprazole (Protonix) 40 mg DAILY ORAL 10/06/18 09:00 11/05/18 08:59 10/09/18 08:13 Rivaroxaban (Xarelto) 15 mg QPM ORAL 10/06/18 16:30 11/05/18 16:29 10/08/18 16:37 Sodium Chloride 1,000 ml @ 100 mls/hr Q10H IV 10/05/18 17:45 11/04/18 17:44 10/09/18 03:32 Samantha Velasco MD Oct 09, 2018 10:02"
[2018-10-09] MEDS ORDERED: Isovue-300 100ml vial INJ PRN (10:15)
[2018-10-09 12:00] VITALS: BP 113/49
[2018-10-09] MEDS: cefTRIAXone 1 GM in D5W 55 ML IVPB SCH (13:31)
[2018-10-09 16:00] VITALS: BP 134/90
--- NOTE | 2018-10-09 16:17 | General Progress Note ---
Assessment/Plan Assessment: IMPRESSION: Leukocytosis, possible sepsis, acute renal failure, mild protein-calorie malnutrition, acute on chronic encephalopathy, hypothyroidism, hypertension, and bradycardia. PLAN care noted IV antibiotics ID follow up and recommendations recheck cbc in am monitor as is not safe for snf impression, plan, and exam edited and reviewed in detail care discussed with RN Subjective Allergies: Coded Allergies: ASPIRIN (Verified Allergy, Unknown, Altered Mental Status, 07/28/18) Subjective unable no distress still with elevated wbc Objective Last 24 Hour Vital Signs Date Time Temp Pulse Resp B/P (MAP) Pulse Ox O2 Delivery O2 Flow Rate FiO2 10/09/18 12:00 98.2 55 17 113/49 (70) 100 10/09/18 09:00 Room Air 10/09/18 08:13 127/55 10/09/18 08:00 98.2 55 17 127/55 (79) 100 10/09/18 04:00 98.2 59 17 124/53 (76) 100 10/09/18 00:00 97.9 57 15 109/56 (73) 97 10/08/18 20:35 Room Air 10/08/18 20:00 99.0 62 19 99/51 (67) 99 Intake and Output 10/08/18 10/09/18 19:00 07:00 Intake Total 1580 ml 1200 ml Balance 1580 ml 1200 ml Intake Oral 470 ml IV Total 1110 ml 1200 ml # Voids 3 3 Laboratory Tests 10/09/18 05:50: White Blood Count 23.9*H, Red Blood Count 3.78L, Hemoglobin 12.0, Hematocrit 36.1L, Mean Corpuscular Volume 96, Mean Corpuscular Hemoglobin 31.9H, Mean Corpuscular Hemoglobin Concent 33.3, Red Cell Distribution Width 13.2, Platelet Count 170, Mean Platelet Volume 7.6, Neutrophils (%) (Auto) , Lymphocytes (%) ( Auto) , Monocytes (%) (Auto) , Eosinophils (%) (Auto) , Basophils (%) (Auto) , Differential Total Cells Counted 100, Neutrophils % (Manual) 40L, Lymphocytes % (Manual) 53H, Monocytes % (Manual) 4, Eosinophils % (Manual) 2, Basophils % ( Manual) 1, Band Neutrophils 0, Platelet Estimate Adequate, Platelet Morphology Normal, Red Blood Cell Morphology Normal Height (Feet): 5 Height (Inches): 1.00 Weight (Pounds): 120 Objective PHYSICAL EXAMINATION: GENERAL: A well-developed female of advanced age, confused. no distress HEENT: Fairly negative. NECK: Supple. No adenopathy. LUNGS: With moderate breath sounds. No rhonchi. No wheezes. CARDIAC: Slightly bradycardic. No murmurs or rubs. ABDOMEN: Soft, nontender, nondistended. EXTREMITIES: No cyanosis or clubbing. Reduced range of motion. NEUROLOGIC: Confused, overall nonfocal. Ozzie Renteria MD Oct 09, 2018 16:17
[2018-10-09] MEDS: Xarelto 15mg tab ORAL SCH (16:44)
--- NOTE | 2018-10-09 16:50 | Diagnostic Imaging Report ---
Indication: Leukocytosis. Assess for abscess Technique: CT of the scalp abdomen and pelvis utilizing automated exposure control with intravenous contrast. Venous scanning performed. Axial, sagittal and coronal reformats presented. CT dose: Total DLP 1147.57 mGycm; CTDI vol 11.29,12.15 mGy Comparison: None Findings: CT chest: Heart is borderline enlarged. There is a pericardial effusion which measures up to 9 mm in thickness. There are coronary arterial and aortic valvular calcifications. The thoracic aorta is normal in caliber with overall mild atherosclerotic calcification. There is conventional branching anatomy of the aortic arch. The imaged portions of the bilateral common carotid, subclavian and vertebral arteries appear patent. Opacified left-sided central venous structures appear patent. No saddle or large central pulmonary embolism is identified. Main pulmonary artery is normal in caliber. There is no CT evidence of right heart strain. No pathologically enlarged hilar or mediastinal lymphadenopathy. Thyroid unremarkable. There is trace left pleural fluid. There is dependent atelectasis in the posterior lower lobes bilaterally. No evidence of pneumothorax. Some scarring with calcification is noted in the bilateral apices. Breast tissue appears symmetric. There is osteopenia, scoliosis and multilevel degenerative change of the thoracic spine. There is an age indeterminate but chronic appearing moderate to severe compression deformity of the T12 vertebral body with focal kyphosis at this level. CT abdomen/pelvis Liver is normal in size and contour. Some low-attenuation is noted along the falciform ligament most likely representing focal fatty infiltration. Hepatic veins and portal veins appear patent. Gallbladder is unremarkable, without CT evident gallstones or pericholecystic inflammatory changes. Spleen, adrenal glands and pancreas unremarkable. Kidneys enhance symmetrically. There is focal lobulation versus cortical scarring in the lower pole the left kidney. There is no urinary tract stone or hydronephrosis. There is bladder wall thickening. The uterus is atrophic. There is a partially calcified mass lesion in the posterior myometrium most likely representing a fibroid. Additional masses with central low-attenuation may represent degenerating fibroids. Questionable low-attenuation in the endometrial canal. There is a 2.5 cm low-attenuation structure adjacent to the anterior aspect of the bladder in the left adnexal region which may represent adnexal mass/cyst versus bladder diverticulum. Further evaluation with pelvic ultrasound is recommended. There is no free intraperitoneal air or fluid. Moderate colonic stool burden is noted. Dense stool is noted slightly expanding the rectum. There is some mild associated thickening of the rectal wall with some presacral stranding. There is no evidence of small bowel obstruction. Appendix is normal. No periappendiceal stranding. Abdominal aorta is normal in caliber with atherosclerotic calcifications. No pathologically enlarged lymphadenopathy is appreciated. There are degenerative changes of the lower lumbar spine. There is grade 1 anterolisthesis of L5 on S1 by means of chronic appearing bilateral pars defects at this level. Bones are demineralized. IMPRESSION: * Dense stool slightly expanding the rectum with mild rectal wall thickening and presacral edema. Findings suggest fecal impaction. Correlate clinically to exclude the possibility of developing stercoral colitis. * Moderate colonic stool burden. * Mild sequential bladder wall thickening. Correlation urinalysis recommended to exclude cystitis. * Heterogeneous calcified mass in the uterus most likely representing a fibroid. Additional low-attenuation masses in the uterus may represent degenerating fibroids versus fluid in the endometrial canal. Further evaluation with pelvic ultrasound is recommended. * 2.5 cm low-attenuation structure in the left adnexal region, adjacent to portions of the bladder. This may represent bladder diverticulum versus left adnexal lesion. Again evaluation with pelvic ultrasound recommended. * Osteopenia, scoliosis and multilevel degenerative change of the spine. Age indeterminate but possibly chronic compression fracture of the T12 vertebral body. * . One anterolisthesis of L5 on S1 by means of chronic-appearing bilateral pars defects at this level. * Mild pericardial effusion. * Coronary arterial and aortic valvular calcifications * Trace left pleural effusion and dependent bibasilar atelectasis. The CT scanner at [facility] is accredited by the [employer] and the scans are performed using protocols designed to limit radiation exposure to as low as reasonably achievable to attain images of sufficient resolution adequate for diagnostic evaluation.
[2018-10-09 20:00] VITALS: BP 143/57
[2018-10-10] VITALS (7 sets, daily range): BP systolic 98–163; BP diastolic 50–91
[2018-10-10] MEDS: Ascorbic Acid 500mg tab ORAL SCH (09:56)
[2018-10-10] MEDS: Losartan 50mg tab ORAL SCH (09:56)
[2018-10-10] MEDS: Multivitamin w/Minerals tab ORAL SCH (09:56)
--- NOTE | 2018-10-10 10:20 | General Progress Note ---
Assessment/Plan Assessment: IMPRESSION: Leukocytosis, possible sepsis, acute renal failure, mild protein-calorie malnutrition, acute on chronic encephalopathy, hypothyroidism, hypertension, and bradycardia. PLAN care noted and reviewed IV antibiotics ID follow up and recommendations recheck cbc in am and dc once wbc improves monitor as is cultures reviewed isolation as is impression, plan, and exam edited and reviewed in detail care discussed with RN Subjective ROS Limited/Unobtainable: Yes Allergies: Coded Allergies: ASPIRIN (Verified Allergy, Unknown, Altered Mental Status, 07/28/18) Subjective unable no distress at present still with elevated wbc repeat pending Objective Last 24 Hour Vital Signs Date Time Temp Pulse Resp B/P (MAP) Pulse Ox O2 Delivery O2 Flow Rate FiO2 10/10/18 09:56 134/59 10/10/18 09:43 54 134/59 (84) 10/10/18 08:00 97.4 60 20 98/58 (71) 95 10/10/18 04:00 97.1 61 16 128/50 (76) 96 10/10/18 00:00 91 17 137/68 (91) 100 10/09/18 21:00 Room Air 10/09/18 20:00 98.2 86 17 143/57 (85) 95 10/09/18 16:00 98.2 64 17 134/90 (105) 100 10/09/18 12:00 98.2 55 17 113/49 (70) 100 Intake and Output 10/09/18 10/10/18 19:00 07:00 Intake Total 1000 ml 120 ml Balance 1000 ml 120 ml Intake Oral 600 ml 120 ml IV Total 400 ml # Voids 3 6 # Bowel Movements 2 Labs Test 10/08/18 10:15 10/09/18 05:50 White Blood Count 24.0 K/UL (4.8-10.8) 23.9 K/UL (4.8-10.8) Red Blood Count 3.88 M/UL (4.20-5.40) 3.78 M/UL (4.20-5.40) Hemoglobin 12.4 G/DL (12.0-16.0) 12.0 G/DL (12.0-16.0) Hematocrit 36.6 % (37.0-47.0) 36.1 % (37.0-47.0) Mean Corpuscular Volume 94 FL (80-99) 96 FL (80-99) Mean Corpuscular Hemoglobin 32.0 PG (27.0-31.0) 31.9 PG (27.0-31.0) Mean Corpuscular Hemoglobin Concent 33.9 G/DL (32.0-36.0) 33.3 G/DL (32.0-36.0) Red Cell Distribution Width 13.1 % (11.6-14.8) 13.2 % (11.6-14.8) Platelet Count 165 K/UL (150-450) 170 K/UL (150-450) Mean Platelet Volume 8.0 FL (6.5-10.1) 7.6 FL (6.5-10.1) Neutrophils (%) (Auto) % (45.0-75.0) % (45.0-75.0) Lymphocytes (%) (Auto) % (20.0-45.0) % (20.0-45.0) Monocytes (%) (Auto) % (1.0-10.0) % (1.0-10.0) Eosinophils (%) (Auto) % (0.0-3.0) % (0.0-3.0) Basophils (%) (Auto) % (0.0-2.0) % (0.0-2.0) Differential Total Cells Counted 100 100 Neutrophils % (Manual) 61 % (45-75) 40 % (45-75) Lymphocytes % (Manual) 37 % (20-45) 53 % (20-45) Monocytes % (Manual) 2 % (1-10) 4 % (1-10) Eosinophils % (Manual) 0 % (0-3) 2 % (0-3) Basophils % (Manual) 0 % (0-2) 1 % (0-2) Band Neutrophils 0 % (0-8) 0 % (0-8) Platelet Estimate Adequate Adequate Platelet Morphology Normal Normal Red Blood Cell Morphology Normal Height (Feet): 5 Height (Inches): 1.00 Weight (Pounds): 120 Objective PHYSICAL EXAMINATION: GENERAL: A well-developed female of advanced age, confused. no distress overall HEENT: Fairly negative. NECK: Supple. No adenopathy. LUNGS: With moderate breath sounds. No rhonchi. No wheezes. CARDIAC: Slightly bradycardic. No murmurs or rubs. ABDOMEN: Soft, nontender, nondistended. EXTREMITIES: No cyanosis or clubbing. Reduced range of motion. NEUROLOGIC: Confused, overall nonfocal. reviewed and edited Ozzie Renteria MD Oct 10, 2018 10:20
[2018-10-10 11:04] LABS: HEMATOCRIT 36.3 % (37.0-47.0); HEMOGLOBIN 12.1 G/DL (12.0-16.0); MEAN CORPUSCULAR VOLUME 95 FL (80-99); PLATELET COUNT 170 K/UL (150-450); RED BLOOD COUNT 3.81 M/UL (4.20-5.40); RED CELL DISTRIBUTION WIDTH 13.8 % (11.6-14.8); WHITE BLOOD COUNT 19.8 K/UL (4.8-10.8)
[2018-10-10] MEDS: cefTRIAXone 1 GM in D5W 55 ML IVPB SCH (14:08)
[2018-10-10] MEDS: Xarelto 15mg tab ORAL SCH (17:26)
[2018-10-11] VITALS: BP 158/52
[2018-10-11 04:00] VITALS: BP 114/70
[2018-10-11 07:05] LABS: HEMATOCRIT 36.7 % (37.0-47.0); HEMOGLOBIN 12.1 G/DL (12.0-16.0); MEAN CORPUSCULAR VOLUME 96 FL (80-99); PLATELET COUNT 169 K/UL (150-450); RED BLOOD COUNT 3.83 M/UL (4.20-5.40); RED CELL DISTRIBUTION WIDTH 13.6 % (11.6-14.8); WHITE BLOOD COUNT 19.2 K/UL (4.8-10.8)
[2018-10-11 08:00] VITALS: BP 132/62
[2018-10-11] MEDS: Losartan 50mg tab ORAL SCH (08:41)
[2018-10-11] MEDS: Multivitamin w/Minerals tab ORAL SCH (08:41)
[2018-10-11] MEDS: Ascorbic Acid 500mg tab ORAL SCH (08:41)
[2018-10-11 11:58] VITALS: BP 116/45
--- NOTE | 2018-10-11 12:37 | Infectious Diseases Prog Note ---
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 Dementia DM HPN Hypothyroidism P; continue Rocephin x 1 day Consider hematologic evaluation Subjective ROS Limited/Unobtainable: Yes Constitutional: Reports: no symptoms Allergies: Coded Allergies: ASPIRIN (Verified Allergy, Unknown, Altered Mental Status, 07/28/18) Objective Vital Signs Last 24 Hour Vital Signs Date Time Temp Pulse Resp B/P (MAP) Pulse Ox O2 Delivery O2 Flow Rate FiO2 10/11/18 11:58 97.1 60 20 116/45 (68) 94 10/11/18 09:00 Room Air 10/11/18 08:41 132/62 10/11/18 08:00 97.9 74 21 132/62 (85) 95 10/11/18 04:00 98.2 67 18 114/70 (85) 97 10/11/18 00:00 98.3 69 18 158/52 (87) 94 10/10/18 21:00 Room Air 10/10/18 20:00 98.1 56 18 163/57 (92) 95 10/10/18 16:00 97.8 61 18 136/91 (106) 97 Height (Feet): 5 Height (Inches): 1.00 Weight (Pounds): 120 General Appearance: no acute distress HEENT: mucous membranes moist Respiratory/Chest: lungs clear Cardiovascular: normal rate Abdomen: soft, non tender Extremities: other - edema of left arm Skin: rash, other - face, arms Laboratory Tests Test 10/11/18 04:55 White Blood Count 19.2 K/UL (4.8-10.8) H Red Blood Count 3.83 M/UL (4.20-5.40) L Hemoglobin 12.1 G/DL (12.0-16.0) Hematocrit 36.7 % (37.0-47.0) L Mean Corpuscular Volume 96 FL (80-99) Mean Corpuscular Hemoglobin 31.7 PG (27.0-31.0) H Mean Corpuscular Hemoglobin Concent 33.1 G/DL (32.0-36.0) Red Cell Distribution Width 13.6 % (11.6-14.8) Platelet Count 169 K/UL (150-450) Mean Platelet Volume 7.5 FL (6.5-10.1) Neutrophils (%) (Auto) % (45.0-75.0) Lymphocytes (%) (Auto) % (20.0-45.0) Monocytes (%) (Auto) % (1.0-10.0) Eosinophils (%) (Auto) % (0.0-3.0) Basophils (%) (Auto) % (0.0-2.0) Differential Total Cells Counted 100 Neutrophils % (Manual) 38 % (45-75) L Lymphocytes % (Manual) 60 % (20-45) H Monocytes % (Manual) 1 % (1-10) Eosinophils % (Manual) 0 % (0-3) Basophils % (Manual) 1 % (0-2) Band Neutrophils 0 % (0-8) Platelet Estimate Adequate Platelet Morphology Normal Red Blood Cell Morphology Normal Current Medications Medications (Trade) Dose Ordered Sig/Juan Route PRN Reason Start Time Stop Time Status Last Admin Dose Admin Acetaminophen (Tylenol) 650 mg Q4H PRN ORAL pain and Temp>101F 10/05/18 18:15 11/04/18 18:14 Ascorbic Acid (Vitamin C) 500 mg DAILY ORAL 10/06/18 09:00 11/05/18 08:59 10/11/18 08:41 Bisacodyl (Dulcolax) 10 mg DAILYPRN PRN ORAL Constipation 10/05/18 18:15 11/04/18 18:14 Ceftriaxone Sodium 1 gm/ Dextrose 55 ml @ 110 mls/hr Q24H IVPB 10/08/18 14:00 10/15/18 13:59 10/10/18 14:08 Diphenhydramine HCl (Benadryl) 25 mg Q8H PRN IVP Itching 10/07/18 16:45 11/06/18 16:44 10/07/18 16:48 Levothyroxine Sodium (Synthroid) 100 mcg BEFORE BREAKFAST ORAL 10/06/18 06:30 11/05/18 06:29 10/10/18 07:04 Losartan Potassium (Cozaar) 50 mg DAILY ORAL 10/06/18 09:00 11/05/18 08:59 10/11/18 08:41 Magnesium Hydroxide (Mom) 30 ml DAILYPRN PRN ORAL Constipation 10/05/18 18:15 11/04/18 18:14 Multivitamins Therapeutic (Therapeutic Multivitamin) 1 ea DAILY ORAL 10/06/18 09:00 11/05/18 08:59 10/11/18 08:41 Pantoprazole (Protonix) 40 mg DAILY ORAL 10/06/18 09:00 11/05/18 08:59 10/11/18 08:41 Rivaroxaban (Xarelto) 15 mg QPM ORAL 10/06/18 16:30 11/05/18 16:29 10/10/18 17:26 Robbin Flaherty MD Oct 11, 2018 12:37
--- NOTE | 2018-10-11 13:11 | General Progress Note ---
Assessment/Plan Assessment: IMPRESSION: Leukocytosis, possible sepsis, acute renal failure, mild protein-calorie malnutrition, acute on chronic encephalopathy, hypothyroidism, hypertension, and bradycardia. PLAN care noted and reviewed IV antibiotics x 1 more day ID follow up and recommendations recheck cbc and if no further improvement and abnormal; will call heme monitor as is cultures reviewed isolation as is impression, plan, and exam edited and reviewed in detail care discussed with RN Subjective Allergies: Coded Allergies: ASPIRIN (Verified Allergy, Unknown, Altered Mental Status, 07/28/18) Subjective unable no distress at present still with elevated wbc but improving repeat noted with significant lymphocytosis Objective Last 24 Hour Vital Signs Date Time Temp Pulse Resp B/P (MAP) Pulse Ox O2 Delivery O2 Flow Rate FiO2 10/11/18 11:58 97.1 60 20 116/45 (68) 94 10/11/18 09:00 Room Air 10/11/18 08:41 132/62 10/11/18 08:00 97.9 74 21 132/62 (85) 95 10/11/18 04:00 98.2 67 18 114/70 (85) 97 10/11/18 00:00 98.3 69 18 158/52 (87) 94 10/10/18 21:00 Room Air 10/10/18 20:00 98.1 56 18 163/57 (92) 95 10/10/18 16:00 97.8 61 18 136/91 (106) 97 Intake and Output 10/10/18 10/11/18 19:00 07:00 Intake Total 800 ml Output Total 250 ml Balance 800 ml -250 ml IV Total 800 ml Output Urine Total 250 ml Laboratory Tests 10/11/18 04:55: White Blood Count 19.2H, Red Blood Count 3.83L, Hemoglobin 12.1, Hematocrit 36.7L, Mean Corpuscular Volume 96, Mean Corpuscular Hemoglobin 31.7H, Mean Corpuscular Hemoglobin Concent 33.1, Red Cell Distribution Width 13.6, Platelet Count 169, Mean Platelet Volume 7.5, Neutrophils (%) (Auto) , Lymphocytes (%) ( Auto) , Monocytes (%) (Auto) , Eosinophils (%) (Auto) , Basophils (%) (Auto) , Differential Total Cells Counted 100, Neutrophils % (Manual) 38L, Lymphocytes % (Manual) 60H, Monocytes % (Manual) 1, Eosinophils % (Manual) 0, Basophils % ( Manual) 1, Band Neutrophils 0, Platelet Estimate Adequate, Platelet Morphology Normal, Red Blood Cell Morphology Normal Height (Feet): 5 Height (Inches): 1.00 Weight (Pounds): 120 Objective PHYSICAL EXAMINATION: GENERAL: A well-developed female of advanced age, confused. no distress overall HEENT: Fairly negative. NECK: Supple. No adenopathy. LUNGS: With moderate breath sounds. No rhonchi. No wheezes. CARDIAC: Slightly bradycardic. No murmurs or rubs. ABDOMEN: Soft, nontender, nondistended. EXTREMITIES: No cyanosis or clubbing. Reduced range of motion. NEUROLOGIC: Confused, overall nonfocal. reviewed and edited Ozzie Renteria MD Oct 11, 2018 13:11
[2018-10-11] MEDS: cefTRIAXone 1 GM in D5W 55 ML IVPB SCH (14:58)
[2018-10-11 16:00] VITALS: BP 149/58
[2018-10-11] MEDS: Xarelto 15mg tab ORAL SCH (16:08)
[2018-10-11 19:55] VITALS: BP 96/47
--- NOTE | 2018-10-11 21:15 | Initial Psychiatric Evaluation ---
Psychiatry Consultation Psychiatry Consultation Chief Complaint: Abnormal Labs History of Present Illness: 87 yo female with hx of mmp demetia and agitation. the pt has waxing and waning of consciousness. the pt has memory impairment of memory/ the pt is agitated and disorganized. the pt is yelling. Allergies: Coded Allergies: ASPIRIN (Verified Allergy, Unknown, Altered Mental Status, 07/28/18) Medication History Scheduled Ascorbic Acid* (Vitamin C*), 500 MG ORAL DAILY, (Reported) Diclofenac Sodium (Voltaren), Unknown Dose TP EVERY 12 HOURS, (Reported) Levothyroxine Sodium* (Levothyroxine Sodium*), 100 MCG ORAL DAILY, (Reported) Losartan Potassium* (Losartan Potassium*), 50 MG ORAL DAILY, (Reported) Multivitamin With Minerals (Multivitamins With Minerals*), 1 TAB ORAL DAILY, ( Reported) Pantoprazole* (Pantoprazole*), 40 MG ORAL DAILY, (Reported) Quetiapine Fumarate* (Quetiapine Fumarate*), 25 MG ORAL Q6HR, (Reported) Rivaroxaban (Xarelto*), 20 MG ORAL DAILY, (Reported) Scheduled PRN Acetaminophen* (Acetaminophen 325MG Tablet*), 650 MG ORAL Q4H PRN for pain and Temp>101F, (Reported) Bisacodyl* (Dulcolax*), 10 MG ORAL DAILY PRN for Constipation, (Reported) Diphenhydramine Hcl* (Diphenhydramine Hcl*), 25 MG IVP Q8H PRN for Itching, ( Reported) Magnesium Hydroxide* (Milk Of Magnesia*), 30 ML ORAL DAILY PRN for Constipation, (Reported) Miscellaneous Medications Ceftriaxone Sod (Ceftriaxone 1 gm-D5w Bag), Unknown Dose, (Reported) Patient History Limited by: medical condition History Provided By: Medical Record, PMD Objective Data Height (Feet): 5 Height (Inches): 1.00 Weight (Pounds): 120 Assessment/Plan Problem List: (1) Dementia with behavioral disturbance ICD Codes: F03.91 - Unspecified dementia with behavioral disturbance SNOMED: 3640512168717 (2) Acute metabolic encephalopathy ICD Codes: G93.41 - Metabolic encephalopathy SNOMED: 77599512, 246137272 Status: unchanged Treatment Plan: haldol prn seroquel restraints provided ro/Hubert Suárez MD Oct 11, 2018 21:15
[2018-10-12] VITALS: BP 101/50
[2018-10-12 04:06] VITALS: BP 109/50
[2018-10-12 07:14] LABS: HEMATOCRIT 33.5 % (37.0-47.0); HEMOGLOBIN 11.1 G/DL (12.0-16.0); MEAN CORPUSCULAR VOLUME 96 FL (80-99); PLATELET COUNT 163 K/UL (150-450); RED CELL DISTRIBUTION WIDTH 13.5 % (11.6-14.8); WHITE BLOOD COUNT 15.9 K/UL (4.8-10.8)
--- NOTE | 2018-10-12 07:50 | General Progress Note ---
Assessment/Plan Assessment: IMPRESSION: Leukocytosis, possible sepsis, acute renal failure, mild protein-calorie malnutrition, acute on chronic encephalopathy, hypothyroidism, hypertension, and bradycardia. PLAN care noted and reviewed IV antibiotics- dc ID follow up and recommendations cbc better monitor as is cultures reviewed isolation as is dc to snf impression, plan, and exam edited and reviewed in detail care discussed with RN Subjective ROS Limited/Unobtainable: Yes Allergies: Coded Allergies: ASPIRIN (Verified Allergy, Unknown, Altered Mental Status, 07/28/18) Subjective unable no distress at present improved overall plan to dc antibiotics Objective Last 24 Hour Vital Signs Date Time Temp Pulse Resp B/P (MAP) Pulse Ox O2 Delivery O2 Flow Rate FiO2 10/12/18 04:06 98.1 63 19 109/50 (69) 94 10/12/18 00:00 98.7 70 19 101/50 (67) 96 10/11/18 20:11 Room Air 10/11/18 19:55 99.0 69 19 96/47 (63) 94 10/11/18 16:00 98.0 71 20 149/58 (88) 97 10/11/18 11:58 97.1 60 20 116/45 (68) 94 10/11/18 09:00 Room Air 10/11/18 08:41 132/62 10/11/18 08:00 97.9 74 21 132/62 (85) 95 Intake and Output 10/11/18 10/12/18 18:59 06:59 Intake Total 480 ml Output Total 400 ml 150 ml Balance 80 ml -150 ml Intake Oral 480 ml Output Urine Total 400 ml 150 ml # Bowel Movements 1 Laboratory Tests 10/12/18 06:20: White Blood Count 15.9H, Red Blood Count 3.50L, Hemoglobin 11.1L, Hematocrit 33.5L, Mean Corpuscular Volume 96, Mean Corpuscular Hemoglobin 31.8H, Mean Corpuscular Hemoglobin Concent 33.3, Red Cell Distribution Width 13.5, Platelet Count 163, Mean Platelet Volume 7.5, Neutrophils (%) (Auto) , Lymphocytes (%) ( Auto) , Monocytes (%) (Auto) , Eosinophils (%) (Auto) , Basophils (%) (Auto) , Neutrophils % (Manual) [Pending], Lymphocytes % (Manual) [Pending], Platelet Estimate [Pending], Platelet Morphology [Pending] Height (Feet): 5 Height (Inches): 1.00 Weight (Pounds): 120 Objective PHYSICAL EXAMINATION: GENERAL: A well-developed female of advanced age, confused. no distress overall HEENT: Fairly negative. NECK: Supple. No adenopathy. LUNGS: With moderate breath sounds. No rhonchi. No wheezes. CARDIAC: Slightly bradycardic. No murmurs or rubs. ABDOMEN: Soft, nontender, nondistended. EXTREMITIES: No cyanosis or clubbing. Reduced range of motion. NEUROLOGIC: Confused, overall nonfocal. reviewed and edited Ozzie Renteria MD Oct 12, 2018 07:50
[2018-10-12 08:00] VITALS: BP 143/69
[2018-10-12] MEDS: Multivitamin w/Minerals tab ORAL SCH (08:50)
[2018-10-12] MEDS: Ascorbic Acid 500mg tab ORAL SCH (08:50)
[2018-10-12] MEDS: Losartan 50mg tab ORAL SCH (08:50)
[2018-10-12 12:00] VITALS: BP 132/91
--- NOTE | 2018-10-12 13:31 | Psych Consult Progress Note ---
Psychiatry Progress Note Psychiatry Progress Note Neurological/Psychiatric: Reports: anxiety, depressed, emotional problems Allergies: Coded Allergies: ASPIRIN (Verified Allergy, Unknown, Altered Mental Status, 07/28/18) Objective Data Height (Feet): 5 Height (Inches): 1.00 Weight (Pounds): 120 General Appearance: alert, moderate distress, agitated Appearance: no abnormalities noted Behavior Mannerisms: good eye contact Mental Status Exam - Affect: blunted Mental Status Exam - Mood: anxious, agitated Speech: clear Mental Status Exam - Thought P: no abnormalities, tangential, confusion, disorganized Mental Status Exam - Suicidal: not present Assessment/Plan Problem List: (1) Dementia with behavioral disturbance ICD Codes: F03.91 - Unspecified dementia with behavioral disturbance SNOMED: 7882628201286 (2) Acute metabolic encephalopathy ICD Codes: G93.41 - Metabolic encephalopathy SNOMED: 34657519, 711236366 Status: unchanged Plan: seroquel restraints provided ro/Hubert Suárez MD Oct 12, 2018 13:31
--- NOTE | 2018-10-13 11:05 | Discharge Summary ---
Discharge Summary Discharge Summary _ DATE OF ADMISSION: 10/05/2018 DATE OF DISCHARGE: 10/12/2018 DISCHARGED BY: Dr. Renteria REASON FOR ADMISSION: 87 years old female with past medical history of diabetes mellitus, hypertension , was sent from the [facility] facility for evaluation due to abnormal labs. Blood work was done few days ago , which showed elevated white blood count. Upon arrival patient was afebrile , vital signs were stable . She denied fevers or chills. She denied any chest pain. She denied cough. Laboratory workup revealed WBC 26.1, hemoglobin 14.3, hematocrit 44. Urinalysis revealed evidence of urinary tract infection. BUN 30 , creatinine 1.1. Lactic acid 1.5 9. Stable LFT. Troponin negative. Pro BNP 1493. EKG revealed sinus bradycardia in 50s, no acute ischemic changes. Albumin 3.3. Chest x-ray demonstrated no acute cardiopulmonary pathology. Patient noted erythematous papular rash to arms and chest. Patient pancultured , received IV fluids and empiric antibiotics and was admitted for further management. CONSULTANTS: ID specialist Dr. Velasco psychiatrist [facility] COURSE: Patient admitted to medical surgical floor. Patient was started on IV fluids and broad-spectrum antibiotics. SNF medications were resumed , including Xarelto for history of PE and hypercoagulable state. Infectious disease specialist followed. Blood cultures were negative. Urine culture revealed Proteus mirabilis. Antibiotic regimen was optimized as per ID recommendation. Due to erythematous rash and possible allergic drug reaction, initial vancomycin and Zosyn were discontinued, and patient started on cefepime. Rash was clearing. Continue close monitoring for rash at the facility . Leukocytosis trending down, from initial 26.1 down to 15.9 prior to discharge. No fevers. CT of the chest, abdomen, and pelvis was done due to persistent leukocytosis and revealed no evidence of abscess or other pathology that could be accountable for leukocytosis. Fecal impaction noted.. Mild sequential bladder wall thickening, probably cystitis. Heterogeneous calcified mass in the uterus, most likely representing fibroid. Osteopenia. Trace left pleural effusion and dependent bibasilar atelectasis. Infectious disease specialist recommended to continue antibiotic for additional day , and if leukocytosis not resolved - consider hematology evaluation, which could be done as outpatient. Rash not appear to be infectious Hemodynamic status was stable. Heart rate in 50s-60, no dizziness, no lightheadedness, no diaphoresis. Patient was not on any medication causing bradycardia. Recommended to avoid SA and AV rao blockers. Renal parameters and electrolytes were closely monitored. Electrolytes corrected as needed. Acute renal failure resolved. Hemoglobin remained stable. Blood pressure was managed with angiotensin receptor tomy and remained stable. Xarelto continued. No evidence of bleeding. GI prophylaxis provided. Synthroid was continued. Supportive care provided. Bowel regimen instituted. Pain management was addressed as needed Protein supplements implemented in plan of care as per registered dietitian recommendation. Patient clinically stabilized and was ready for transfer to [facility] facility for continuation of care. FINAL DIAGNOSES: Proteus UTI Leukocytosis , possible sepsis Acute renal failure -resolved Diabetes mellitus Hypertension Hypothyroidism Protein calorie malnutrition Acute metabolic encephalopathy on chronic encephalopathy Dementia with behavioral disturbances Bradycardia Rash, possibly allergic drug reaction DISCHARGE MEDICATIONS: See Medication Reconciliation list. DISCHARGE INSTRUCTIONS: Patient was discharged to the [facility] facility. Follow up with medical doctor at the facility. I have been assigned to dictate discharge summary for this account. I was not involved in the patient's management. Rossi Blanco NP Oct 13, 2018 11:05
== END 2018-10-12 13:18 | DRG 871 ==
LOC: EDBD 13:47 → EMR 14:31 → 4E 14:38 → EDBEDREQ 15:05 → 4E 10-06 21:34
DX: A41.9 Sepsis, unspecified organism (principal); G93.41 Metabolic encephalopathy; N39.0 Urinary tract infection, site not specified; N17.9 Acute kidney failure, unspecified; F03.91 Unspecified dementia, unspecified severity, with behavioral disturbance; E44.1 Mild protein-calorie malnutrition; E11.9 Type 2 diabetes mellitus without complications; I10 Essential (primary) hypertension; B96.4 Proteus (mirabilis) (morganii) as the cause of diseases classified elsewhere; L27.0 Generalized skin eruption due to drugs and medicaments taken internally; T50.905A Adverse effect of unspecified drugs, medicaments and biological substances, initial encounter; I25.10 Atherosclerotic heart disease of native coronary artery without angina pectoris; Z88.6 Allergy status to analgesic agent; E03.9 Hypothyroidism, unspecified
CPT/HCPCS: 36415; 71045; 71260; 74177; 80048; 80053; 81003; 82550; 82553; 82962; 83605; 83880; 84484; 85007; 85025; 87040; 87081; 87086; 87181; 93005; 96365; 96367; 99285

== ENCOUNTER 2018-10-14 13:42 | Inpatient (IN) | payer MEDICARE, OTHER ==
[~2018-10-14] VITALS: Ht 162.6 cm; Wt 58.6 kg
[~2018-10-14 13:42] MED LIST changes: +ACETAMINOPHEN325 M1 ORAL; +BISACODYL5 MG ORAL; +LEVOTHYROXINE125 MCG ORAL; +LOSARTAN POTASS50 MG ORAL; +MILK OF MA400 MG/51 ORAL; +MULTIVITAMINS1 EAC8 ORAL; +PANTOPRAZOLE SO40 MG ORAL; +VITAMIN C500 M1 ORAL; +VOLTAREN100 G1 TP; +XARELTO10 MG ORAL
[2018-10-14 13:45] VITALS: BP 108/54
--- NOTE | 2018-10-14 13:45 | NUR ---
ED Nurse Note: Patient biba from a SNF c/o elevated white blood cells, EMS states that the patients white blood cell was 26.8, at time of arrival patients skin on the arms is thin,dry and flaky. patient does have an altered mental status and is baseline, patient is able to answer questions but at times,repeat her words both of patients is reddened.
--- NOTE | 2018-10-14 14:27 | Emergency Room Report ---
History of Present Illness General Chief Complaint: Abnormal Labs Source: EMS Present Illness HPI Patient arrives with increased white blood cell count. The patient is a very poor historian. She denies any pain. No fever was noted. No further history from the patient. Allergies: Coded Allergies: ASPIRIN (Verified Allergy, Unknown, Altered Mental Status, 07/28/18) Patient History Past Surgical History: unable to obtain Pertinent Family History: unable to obtain Nursing Documentation-PMH Hx Cardiac Problems: Yes Hx Hypertension: Yes Hx Diabetes: Yes - DM II Hx Cancer: No Review of Systems All Other Systems: limited Physical Exam Vital Signs Date Time Temp Pulse Resp B/P (MAP) Pulse Ox O2 Delivery O2 Flow Rate FiO2 10/14/18 13:38 98.4 57 19 108/54 95 Room Air General Appearance: normal inspection, alert Eyes: bilateral eye normal inspection ENT: normal pharynx, no angioedema Neck: full range of motion, supple Respiratory: lungs clear Gastrointestinal: non tender, soft Neurologic: alert, responsive, sensory intact Medical Decision Making Diagnostic Impression: Primary Impression: Leukocytosis ER Course Patient presents significant complexity of risk requiring multiple bedside evaluations. Particularly concerned about sepsis septic shock. She did have an elevated lactic acid level. IV fluids have been started. The patient was stable. The patient has no episodes of hypotension. The patient has been afebrile. The patient was given IV fluids for volume resuscitation. Extensive workup was started as well. CT was reviewed. At this time the patient will be admitted due to the severe leukocytosis and lactic acidosis. I discussed this with the admitting doctor. Dr. Funes accepts. Laboratory Tests Test 10/14/18 14:10 10/14/18 14:35 10/14/18 16:45 White Blood Count 24.2 K/UL (4.8-10.8) *H Red Blood Count 3.95 M/UL (4.20-5.40) L Hemoglobin 12.7 G/DL (12.0-16.0) Hematocrit 38.2 % (37.0-47.0) Mean Corpuscular Volume 97 FL (80-99) Mean Corpuscular Hemoglobin 32.0 PG (27.0-31.0) H Mean Corpuscular Hemoglobin Concent 33.2 G/DL (32.0-36.0) Red Cell Distribution Width 14.0 % (11.6-14.8) Platelet Count 188 K/UL (150-450) Mean Platelet Volume 7.8 FL (6.5-10.1) Neutrophils (%) (Auto) % (45.0-75.0) Lymphocytes (%) (Auto) % (20.0-45.0) Monocytes (%) (Auto) % (1.0-10.0) Eosinophils (%) (Auto) % (0.0-3.0) Basophils (%) (Auto) % (0.0-2.0) Differential Total Cells Counted 100 Neutrophils % (Manual) 38 % (45-75) L Lymphocytes % (Manual) 53 % (20-45) H Monocytes % (Manual) 6 % (1-10) Eosinophils % (Manual) 0 % (0-3) Basophils % (Manual) 0 % (0-2) Band Neutrophils 3 % (0-8) Platelet Estimate Adequate Platelet Morphology Normal Red Blood Cell Morphology Normal Sodium Level 140 MMOL/L (136-145) Potassium Level 5.5 MMOL/L (3.5-5.1) H Chloride Level 106 MMOL/L (98-107) Carbon Dioxide Level 25 MMOL/L (21-32) Anion Gap 9 mmol/L (5-15) Blood Urea Nitrogen 19 mg/dL (7-18) H Creatinine 0.9 MG/DL (0.55-1.30) Estimate Glomerular Filtration Rate mL/min (>60) Glucose Level 131 MG/DL (74-106) H Lactic Acid Level 2.50 mmol/L (0.4-2.0) H 0.90 mmol/L (0.66-2.22) Calcium Level 9.4 MG/DL (8.5-10.1) Total Bilirubin 0.6 MG/DL (0.2-1.0) Aspartate Amino Transferase (AST) 55 U/L (15-37) H Alanine Aminotransferase (ALT) 42 U/L (12-78) Alkaline Phosphatase 98 U/L (46-116) Total Protein 6.7 G/DL (6.4-8.2) Albumin 2.7 G/DL (3.4-5.0) L Globulin 4.0 g/dL Albumin/Globulin Ratio 0.7 (1.0-2.7) L Urine Color Pale yellow Urine Appearance Clear Urine pH 7 (4.5-8.0) Urine Specific [place] 1.005 (1.005-1.035) Urine Protein Negative (NEGATIVE) Urine Glucose (UA) Negative (NEGATIVE) Urine Ketones Negative (NEGATIVE) Urine Blood Negative (NEGATIVE) Urine Nitrite Negative (NEGATIVE) Urine Bilirubin Negative (NEGATIVE) Urine Urobilinogen Normal MG/DL (0.0-1.0) Urine Leukocyte Esterase 1+ (NEGATIVE) H Urine RBC 0-2 /HPF (0 - 2) Urine WBC 2-4 /HPF (0 - 2) Urine Squamous Epithelial Cells Moderate /LPF (NONE/OCC) H Urine Bacteria Few /HPF (NONE) EKG Diagnostic Results EKG Time: 14:49 Rate: bradycardiac Rhythm: NSR ST Segments: no acute changes Last Vital Signs Date Time Temp Pulse Resp B/P (MAP) Pulse Ox O2 Delivery O2 Flow Rate FiO2 10/14/18 13:38 98.4 57 19 108/54 95 Room Air Status: unchanged Disposition: ADMITTED INPATIENT Condition: Serious CARMEN CHÁVEZ Oct 14, 2018 14:27
[2018-10-14 14:56] LABS: HEMATOCRIT 38.2 % (37.0-47.0); HEMOGLOBIN 12.7 G/DL (12.0-16.0); MEAN CORPUSCULAR VOLUME 97 FL (80-99); PLATELET COUNT 188 K/UL (150-450); RED BLOOD COUNT 3.95 M/UL (4.20-5.40)
[2018-10-14 14:57] LABS: WHITE BLOOD COUNT 24.2 K/UL (4.8-10.8)
[2018-10-14 15:07] LABS: ANION GAP 9 mmol/L (5-15); BLOOD UREA NITROGEN 19 mg/dL (7-18); CALCIUM 9.4 MG/DL (8.5-10.1); CARBON DIOXIDE 25 MMOL/L (21-32); CHLORIDE 106 MMOL/L (98-107); CREATININE 0.9 MG/DL (0.55-1.30); SODIUM 140 MMOL/L (136-145)
--- NOTE | 2018-10-14 15:07 | NUR ---
ED Nurse Note: Patient in bed, no distress noted
[2018-10-14 15:13] LABS: ALANINE AMINOTRANSFERASE 42 U/L (12-78); ALBUMIN 2.7 G/DL (3.4-5.0); ALBUMIN/GLOBULIN RATIO 0.7 (1.0-2.7); ALKALINE PHOSPHATASE 98 U/L (46-116); ASPARTATE AMINO TRANSFERASE 55 U/L (15-37); BILIRUBIN,TOTAL 0.6 MG/DL (0.2-1.0); POTASSIUM 5.5 MMOL/L (3.5-5.1)
[2018-10-14 15:16] LABS: APPEARANCE,URINE CLEAR; BILIRUBIN, URINE NEGATIVE (NEGATIVE); COLOR,URINE PALE YELLOW; GLUCOSE, URINE (UA) NEGATIVE (NEGATIVE); KETONES,URINE NEGATIVE (NEGATIVE); LEUKOCYTE ESTERASE ,URINE 1+ (NEGATIVE); NITRITE,URINE NEGATIVE (NEGATIVE); PH,URINE 7 (4.5-8.0); PROTEIN,URINE NEGATIVE (NEGATIVE); UROBILINOGEN,URINE NORMAL MG/DL (0.0-1.0)
--- NOTE | 2018-10-14 15:38 | NUR ---
ED Nurse Note: Patient made a bowel movement, cleaned patient up, no skin issues other than redness in perineal area, no open wounds
--- NOTE | 2018-10-14 15:42 | Diagnostic Imaging Report ---
Indication: Shortness of Technique: One view of the chest Comparison: 10/05/2018 Findings: The heart is enlarged. There is mild interstitial prominence and central bronchial wall thickening, probably on the basis of senescent change. There is equivocal slight blunting of the left costophrenic sulcus. The lungs and right pleural space are otherwise clear. There is mild scoliotic deformity. Impression: Cardiomegaly Possible small left pleural effusion
[2018-10-14] MEDS ORDERED: Isovue-300 100ml vial INJ PRN (15:45)
--- NOTE | 2018-10-14 17:25 | Diagnostic Imaging Report ---
Clinical Indication: Abdominal pain, leukocytosis Technique: No oral contrast utilized, per emergency room physician request IV administration nonionic contrast. Venous phase spiral acquisition obtained through the abdomen and pelvis. Multiplanar reconstructions were generated. Total dose length product 944.3 mGycm. CTDIvol(s) 16.38 mGy. Dose reduction achieved using automated exposure control Comparison: 10/09/2018 Findings: Lack of enteric contrast limits assessment of the GI tract. The appendix is normal. There is colonic diverticulosis. No evidence of diverticulitis. Moderate amount retained stool again noted in the colon. The rectum is mildly distended with feces, less so than on the prior study. No small bowel distention. There is questionable mild wall thickening of the gastric antrum focally. The liver, gallbladder, bile ducts, pancreas, spleen, adrenals, kidneys are all unremarkable. No retroperitoneal or mesenteric mass or adenopathy. Calcified fibroids are again demonstrated in the uterus. There is a 2.7 cm left ovarian cyst again noted. The bladder is unremarkable. Trace pleural fluid is again demonstrated at the left lung base, unchanged. Posterior dependent atelectatic changes are seen at both lung bases. The heart is upper limits normal in size. There is a small pericardial effusion again demonstrated. The bones demonstrate a wedge/burst compression fracture with significant height loss of the T12 vertebral body, also noted previously. There is also superior endplate compression fracture deformity of the T11 vertebral body. Again noted is bilateral L5 spondylolysis, grade 1 L5 on S1 spondylolisthesis. Impression: Limited assessment of the GI tract, due to lack of enteric contrast administration Mild to moderate retained feces. Correlate with any clinical history of constipation. Mild rectal distention by stool, may indicate some rectal fecal impaction, although this is less severe than on the previous exam. Questionable gastric antral wall thickening, likely artifact of under distention but gastritis/peptic ulcer disease not completely excludable No definite acute process otherwise Colonic diverticulosis. No evidence of diverticulitis 2.7 cm left ovarian cyst. As previously recommended, consider pelvic sonography for better characterization Calcified uterine fibroids, also previously reported Age-indeterminate T12 vertebral body burst/compression fracture deformity. Consider MRI for better characterization if clinically relevant. 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
--- NOTE | 2018-10-14 17:49 | NUR ---
ED Nurse Note: Patient made another bowel movement, no skin issue noted
[2018-10-14 17:54] VITALS: BP 124/69
[2018-10-14] MEDS ORDERED: ROCEPHIN 11 GM/50 ML (18:04)
[2018-10-14] MEDS ORDERED: DIPHENHYDRAMINE25 M1 IVP (18:04)
[2018-10-14] MEDS ORDERED: QUETIAPINE FUMA50 MG ORAL (18:04)
--- NOTE | 2018-10-14 18:30 | NUR ---
ED Nurse Note: unable to take patient upstairs, states that i have to give report after shift report at 1930
[2018-10-14] MEDS ORDERED: Acetaminophen 650 MG SUPP RECTAL PRN (18:45)
--- NOTE | 2018-10-14 19:30 | NUR ---
ED Nurse Note: Telemetry nurses asked for 10 more minutes to give report
[2018-10-14 19:31] VITALS: BP 135/73
[2018-10-14 20:00] VITALS: BP 157/61
--- NOTE | 2018-10-14 20:01 | NUR ---
TRANSFER TO FLOOR: Patient transferred to [facility] as ordered, per . Report given to BARBIE Richter.
--- NOTE | 2018-10-14 20:10 | NUR ---
NURSE NOTES: Received patient from BARBIE Love form ER. Patient arrived via gurney, AOx2. IV pulled out by patient, will attempt to reinsert. Patient oriented to room, call light and belongings within reach. Patient incontinent x2, perianal redness noted due to incontinence, triad cream applied. Belongings checked and list signed. Bed rails x3 up. Yellow socks and fall risk bracelet on patient.
--- NOTE | 2018-10-14 20:19 | NUR ---
CASE MANAGEMENT: REVIEW /F BIBA FROM [facility] CC: ABNORMAL LABS SI: LEUKOCYTOSIS T 98.4 HR 57 RR 19 BP 108/54 SAT 95% ROOM AIR WBC 24.2 D 5.[address] ABD / PELVIS - COLONIC DIVERTICULOSIS . NO EVIDENCE OF DIVERTICULITIS IS: NS IVF BOLUS X1 IOPAMIDOL INF X1 PATIENT ADMITTED TO MED/SURG UNIT 10/14/2018 DCP: PATIENT IS FROM [facility]
[2018-10-14] MEDS ORDERED: Milk of Magnesia 30ml Ud ORAL PRN (21:15)
[2018-10-14] MEDS ORDERED: Vancomycin 1.25gm Premix IVPB SCH (22:00)
[2018-10-15] VITALS: BP 159/72
[2018-10-15] MEDS: Piperacillin/Tazobactam 3.375 GM in NS 110 ML IVPB SCH ×4 (00:50→21:05)
[2018-10-15 04:00] VITALS: BP 147/89
--- NOTE | 2018-10-15 05:52 | NUR ---
NURSE NOTES: Dr Renteria gave order for soft wrist restraints. Will carry out.
--- NOTE | 2018-10-15 07:00 | NUR ---
HAND-OFF: Report given to BARBIE Palma.
--- NOTE | 2018-10-15 07:28 | NUR ---
NURSE NOTES: RN received pt in stable condition, asleep in bed. No acute distress or SOB, bed in low, locked position, call light within reach. Potassium noted: 5.5. BARBIE Jarvis reported that Dr. Dexter ledbetter. Will continue plan of care.
[2018-10-15 07:29] LABS: HEMATOCRIT 39.7 % (37.0-47.0); HEMOGLOBIN 13.1 G/DL (12.0-16.0); MEAN CORPUSCULAR VOLUME 97 FL (80-99); PLATELET COUNT 174 K/UL (150-450); RED BLOOD COUNT 4.11 M/UL (4.20-5.40); RED CELL DISTRIBUTION WIDTH 13.7 % (11.6-14.8); WHITE BLOOD COUNT 17.4 K/UL (4.8-10.8)
[2018-10-15 07:50] LABS: ANION GAP 11 mmol/L (5-15); BLOOD UREA NITROGEN 14 mg/dL (7-18); CALCIUM 8.7 MG/DL (8.5-10.1); CARBON DIOXIDE 24 MMOL/L (21-32); CHLORIDE 108 MMOL/L (98-107); POTASSIUM 3.7 MMOL/L (3.5-5.1); SODIUM 143 MMOL/L (136-145)
[2018-10-15 08:00] VITALS: BP 144/81
[2018-10-15 08:01] LABS: CREATININE 0.9 MG/DL (0.55-1.30); LACTATE DEHYDROGENASE 285 U/L (81-234)
[2018-10-15] MEDS ORDERED: Xarelto 10mg tab ORAL SCH (09:00)
[2018-10-15] MEDS: Losartan 50mg tab ORAL SCH (09:37)
[2018-10-15] MEDS: Ascorbic Acid 500mg tab ORAL SCH (09:37)
[2018-10-15] MEDS: Heparin 5000 units/ml inj SUBQ SCH ×2 (09:38→21:05)
--- NOTE | 2018-10-15 09:49 | NUR ---
NURSE NOTES: RN weighted pt using bed scale; unable to confirm if bed was zeroed before weighting.
--- NOTE | 2018-10-15 09:58 | NUR ---
NURSE NOTES: Per pharmacy, Beck due at 8:00 PM.
[2018-10-15 12:00] VITALS: BP 126/53
--- NOTE | 2018-10-15 12:47 | Initial Psychiatric Evaluation ---
Psychiatry Consultation Psychiatry Consultation Chief Complaint: Abnormal Labs History of Present Illness: 87-year-old female, with hx of mmp and dementia who was recently discharged. the pt was confused and agitated. the pt was disorganized and unable to answer the questions appropriately. the pt has waxing and waning of consciousness Allergies: Coded Allergies: ASPIRIN (Verified Allergy, Unknown, Altered Mental Status, 07/28/18) Past Psychiatric History: dementia with behavioral dist anxiety do Medical History: see the problem list Medication History Scheduled Ascorbic Acid* (Vitamin C*), 500 MG ORAL DAILY, (Reported) Diclofenac Sodium (Voltaren), Unknown Dose TP EVERY 12 HOURS, (Reported) Levothyroxine Sodium* (Levothyroxine Sodium*), 100 MCG ORAL DAILY, (Reported) Losartan Potassium* (Losartan Potassium*), 50 MG ORAL DAILY, (Reported) Multivitamin With Minerals (Multivitamins With Minerals*), 1 TAB ORAL DAILY, ( Reported) Pantoprazole* (Pantoprazole*), 40 MG ORAL DAILY, (Reported) Quetiapine Fumarate* (Quetiapine Fumarate*), 25 MG ORAL Q6HR, (Reported) Rivaroxaban (Xarelto*), 20 MG ORAL DAILY, (Reported) Scheduled PRN Acetaminophen* (Acetaminophen 325MG Tablet*), 650 MG ORAL Q4H PRN for pain and Temp>101F, (Reported) Bisacodyl* (Dulcolax*), 10 MG ORAL DAILY PRN for Constipation, (Reported) Diphenhydramine Hcl* (Diphenhydramine Hcl*), 25 MG IVP Q8H PRN for Itching, ( Reported) Magnesium Hydroxide* (Milk Of Magnesia*), 30 ML ORAL DAILY PRN for Constipation, (Reported) Miscellaneous Medications Ceftriaxone Sod (Ceftriaxone 1 gm-D5w Bag), Unknown Dose, (Reported) Patient History Limited by: medical condition History Provided By: Medical Record, PMD Objective Data Height (Feet): 5 Height (Inches): 4.00 Weight (Pounds): 129 Appearance: well groomed Behavior Mannerisms: good eye contact Affect: blunted Mood: anxious, agitated Thought Process: tangential, confusion, disorganized, loose association Suicidal Ideation: not present Assessment/Plan Problem List: (1) Dementia with behavioral disturbance ICD Codes: F03.91 - Unspecified dementia with behavioral disturbance SNOMED: 2872918194760 (2) Acute metabolic encephalopathy ICD Codes: G93.41 - Metabolic encephalopathy SNOMED: 30445484, [id number] Assessment/Plan: zakia michelen murali adamson provided ro/Hubert Suárez MD Oct 15, 2018 12:47
[2018-10-15] MEDS ORDERED: Haloperidol 5mg/ml Inj IM PRN ×2 (13:00→13:15)
--- NOTE | 2018-10-15 13:15 | Infectious Diseases Prog Note ---
Assessment/Plan Assessment/Plan A; Leukocytosis, Lymphocytosis Dementia HPN Hypothyroidism Rash P: Discontinue Vancomycin Continue Zosyn Consider hematologic evaluation for rule out of CLL Subjective ROS Limited/Unobtainable: Yes Constitutional: Reports: no symptoms Allergies: Coded Allergies: ASPIRIN (Verified Allergy, Unknown, Altered Mental Status, 07/28/18) Objective Vital Signs Last 24 Hour Vital Signs Date Time Temp Pulse Resp B/P (MAP) Pulse Ox O2 Delivery O2 Flow Rate FiO2 10/15/18 09:37 144/81 10/15/18 09:00 Room Air 10/15/18 08:00 97.7 68 20 144/81 (102) 99 10/15/18 04:00 97.5 65 20 147/89 (108) 100 10/15/18 01:58 Room Air 10/15/18 00:00 97.4 63 20 159/72 (101) 100 10/14/18 20:05 98.4 86 19 135/73 95 Room Air 10/14/18 20:00 97.9 59 18 157/61 (93) 100 10/14/18 19:31 98.4 86 19 135/73 95 Room Air 10/14/18 17:54 98.4 79 19 124/69 95 Room Air 10/14/18 13:45 98.4 85 19 108/54 95 Room Air 10/14/18 13:38 98.4 57 19 108/54 95 Room Air Height (Feet): 5 Height (Inches): 4.00 Weight (Pounds): 129 General Appearance: no acute distress HEENT: mucous membranes moist Respiratory/Chest: lungs clear Cardiovascular: normal rate Abdomen: soft, non tender Extremities: no edema Skin: rash Neurologic/Psychiatric: alert, responsive Musculoskeletal: atrophy Microbiology Date/Time Source Procedure Growth Status 10/14/18 20:00 Rectum Received Laboratory Tests Test 10/14/18 14:10 10/14/18 14:35 10/14/18 16:45 10/15/18 04:47 White Blood Count 24.2 K/UL (4.8-10.8) *H 17.4 K/UL (4.8-10.8) H Red Blood Count 3.95 M/UL (4.20-5.40) L 4.11 M/UL (4.20-5.40) L Hemoglobin 12.7 G/DL (12.0-16.0) 13.1 G/DL (12.0-16.0) Hematocrit 38.2 % (37.0-47.0) 39.7 % (37.0-47.0) Mean Corpuscular Volume 97 FL (80-99) 97 FL (80-99) Mean Corpuscular Hemoglobin 32.0 PG (27.0-31.0) H 31.8 PG (27.0-31.0) H Mean Corpuscular Hemoglobin Concent 33.2 G/DL (32.0-36.0) 32.9 G/DL (32.0-36.0) Red Cell Distribution Width 14.0 % (11.6-14.8) 13.7 % (11.6-14.8) Platelet Count 188 K/UL (150-450) 174 K/UL (150-450) Mean Platelet Volume 7.8 FL (6.5-10.1) 7.0 FL (6.5-10.1) Neutrophils (%) (Auto) % (45.0-75.0) % (45.0-75.0) Lymphocytes (%) (Auto) % (20.0-45.0) % (20.0-45.0) Monocytes (%) (Auto) % (1.0-10.0) % (1.0-10.0) Eosinophils (%) (Auto) % (0.0-3.0) % (0.0-3.0) Basophils (%) (Auto) % (0.0-2.0) % (0.0-2.0) Differential Total Cells Counted 100 100 Neutrophils % (Manual) 38 % (45-75) L 33 % (45-75) L Lymphocytes % (Manual) 53 % (20-45) H 57 % (20-45) H Monocytes % (Manual) 6 % (1-10) 6 % (1-10) Eosinophils % (Manual) 0 % (0-3) 3 % (0-3) Basophils % (Manual) 0 % (0-2) 1 % (0-2) Band Neutrophils 3 % (0-8) 0 % (0-8) Platelet Estimate Adequate Adequate Platelet Morphology Normal Normal Red Blood Cell Morphology Normal Sodium Level 140 MMOL/L (136-145) 143 MMOL/L (136-145) Potassium Level 5.5 MMOL/L (3.5-5.1) H 3.7 MMOL/L (3.5-5.1) Chloride Level 106 MMOL/L (98-107) 108 MMOL/L (98-107) H Carbon Dioxide Level 25 MMOL/L (21-32) 24 MMOL/L (21-32) Anion Gap 9 mmol/L (5-15) 11 mmol/L (5-15) Blood Urea Nitrogen 19 mg/dL (7-18) H 14 mg/dL (7-18) Creatinine 0.9 MG/DL (0.55-1.30) 0.9 MG/DL (0.55-1.30) Estimat Glomerular Filtration Rate mL/min (>60) mL/min (>60) Glucose Level 131 MG/DL (74-106) H 81 MG/DL (74-106) Lactic Acid Level 2.50 mmol/L (0.4-2.0) H 0.90 mmol/L (0.66-2.22) Calcium Level 9.4 MG/DL (8.5-10.1) 8.7 MG/DL (8.5-10.1) Total Bilirubin 0.6 MG/DL (0.2-1.0) Aspartate Amino Transf (AST/SGOT) 55 U/L (15-37) H Alanine Aminotransferase (ALT/SGPT) 42 U/L (12-78) Alkaline Phosphatase 98 U/L (46-116) Total Protein 6.7 G/DL (6.4-8.2) Albumin 2.7 G/DL (3.4-5.0) L Globulin 4.0 g/dL Albumin/Globulin Ratio 0.7 (1.0-2.7) L Urine Color Pale yellow Urine Appearance Clear Urine pH 7 (4.5-8.0) Urine Specific [place] 1.005 (1.005-1.035) Urine Protein Negative (NEGATIVE) Urine Glucose (UA) Negative (NEGATIVE) Urine Ketones Negative (NEGATIVE) Urine Blood Negative (NEGATIVE) Urine Nitrite Negative (NEGATIVE) Urine Bilirubin Negative (NEGATIVE) Urine Urobilinogen Normal MG/DL (0.0-1.0) Urine Leukocyte Esterase 1+ (NEGATIVE) H Urine RBC 0-2 /HPF (0 - 2) Urine WBC 2-4 /HPF (0 - 2) Urine Squamous Epithelial Cells Moderate /LPF (NONE/OCC) H Urine Bacteria Few /HPF (NONE) Lactate Dehydrogenase 285 U/L (81-234) H Current Medications Medications (Trade) Dose Ordered Sig/Juan Route PRN Reason Start Time Stop Time Status Last Admin Dose Admin Acetaminophen (Tylenol) 650 mg Q4H PRN ORAL pain and Temp>101F 10/14/18 21:15 11/13/18 21:14 Ascorbic Acid (Vitamin C) 500 mg DAILY ORAL 10/15/18 09:00 11/14/18 08:59 10/15/18 09:37 Haloperidol Lactate (Haldol) 5 mg Q6H PRN IM Agitation 10/15/18 13:15 11/14/18 12:59 Heparin Sodium (Porcine) (Heparin 5000 units/ml) 5,000 units EVERY 12 HOURS SUBQ 10/15/18 09:00 11/14/18 08:59 10/15/18 09:38 Levothyroxine Sodium (Synthroid) 100 mcg DAILY ORAL 10/15/18 09:00 11/14/18 08:59 10/15/18 09:36 Losartan Potassium (Cozaar) 50 mg DAILY ORAL 10/15/18 09:00 11/14/18 08:59 10/15/18 09:37 Magnesium Hydroxide (Mom) 30 ml DAILYPRN PRN ORAL Constipation 10/14/18 21:15 11/13/18 21:14 Pantoprazole (Protonix) 40 mg DAILY ORAL 10/15/18 09:00 11/14/18 08:59 10/15/18 09:40 Piperacillin Sod/ Tazobactam Sod 3.375 gm/Sodium Chloride 110 ml @ 27.5 mls/hr Q8HR IVPB 10/15/18 00:00 10/22/18 00:00 10/15/18 06:12 Quetiapine Fumarate (SEROquel) 25 mg Q4H PRN ORAL agitation 10/15/18 13:00 11/14/18 12:59 Sodium Chloride 1,000 ml @ 100 mls/hr Q10H IV 10/14/18 21:15 11/13/18 21:14 10/14/18 21:42 Vancomycin HCl (Vanco rx to dose) 1 ea DAILY MISC 10/15/18 09:00 11/14/18 08:59 Vancomycin HCl 750 mg/Sodium Chloride 275 ml @ 183.333 mls/hr Q24H IVPB 10/15/18 20:00 10/20/18 19:59 Robbin Flaherty MD Oct 15, 2018 13:15
--- NOTE | 2018-10-15 14:01 | NUR ---
NURSE NOTES:WOUND CARE NOTES:Pt presented on admission with partial thickness pressure injury sacrococcygeal area(L)3cm x (W)2.5cm.Base of wound moist-viable.edges adherent to base of wound.Non-blanchable erythema without fluctuance /induration or elevation in skin temp periwound.INcontinence associated dermatitis noted to mons pubis,bilat groin and labia majora.Resolving diffused red rash noted to lower back,and posterior aspects of both upper thighs.Generalized dry peeling skin noted. Both heels are boggy with non-blanchable erythema. Tx.Plan:Apply Triad Moisture Barrier to sacrococcygeal wound. Cover with Optifoam drsg. Change every 3 days and prn. Apply Triad paste to perineum and medial aspects of both thighs with each incontinence care. Apply Cavilon Skin Barrier to Both heels. Cover each heel with Optifoam drsg. Change every 7 days and prn. Reposition at least every 2hours or as tolerated. Off-load heels with pillow.
--- NOTE | 2018-10-15 15:30 | History and Physical Report ---
DATE OF ADMISSION: 10/14/2018 REASON FOR ADMISSION: Recurrent leukocytosis. HISTORY OF PRESENT ILLNESS: The patient is an 87-year-old female, recently discharged with possibility of sepsis and leukocytosis. The patient overall did improve and white cell count did come down to near normal. The patient on followup testing in the group home was noted to have again significant leukocytosis, which was worsening in severity. The patient was brought in for evaluation through the emergency room and workup was fairly benign with exception of elevated white cell count. The patient did have CT of the abdomen showing retained feces, gastric antral wall thickening, ovarian cyst, uterine fibroids, compression fractures, but no significant acute findings. The patient is comfortable at present, agitated, demented at baseline. No other significant issues noted. The patient admitted for IV antibiotics and further acute optimization. The patient's care discussed and reviewed. The patient as mentioned was recently discharged from the hospital and has multitude of medical problems and fully dependent. PAST MEDICAL HISTORY: Notable for dementia, hypothyroidism, leukocytosis, recent sepsis, hypertension, mild psychosis, history of DVT and PE. MEDICATIONS: Reviewed. ALLERGIES: Reviewed. SOCIAL HISTORY: The patient resides at a [place] [facility]. Nonsmoker and nondrinker. She is a Do Not Resuscitate. REVIEW OF SYSTEMS: Unobtainable. PHYSICAL EXAMINATION: GENERAL: A well-developed female, comfortable, but confused. VITAL SIGNS: Blood pressure 147/89, pulse 65, respirations 20, sats 100%, temperature 97.5. HEENT: Fairly negative. Extraocular movements are grossly intact. Oropharynx is moist. NECK: Supple. LUNGS: With good air entry. No significant rhonchi. CARDIAC: S1, S2. Regular rate and rhythm without murmurs, rubs, gallops. ABDOMEN: Soft, nontender. No distention. EXTREMITIES: No cyanosis or clubbing. There is degenerative joint disease. NEUROLOGICAL: Grossly nonfocal, but confused. LABORATORY DATA: Otherwise reviewed. Albumin 2.7. The CBC, white cell count was 24.2, then on repeat this morning 17.4. Differential notable for leukocytosis of 53%. IMPRESSION: 1. Recurrent leukocytosis, possible sepsis versus hematological disorder, unclear. 2. Severe protein-calorie malnutrition. 3. Elevated LDH. 4. Dementia with psychosis. 5. Hypothyroidism. 6. Hypertension. RECOMMENDATION: IV antibiotics. ID evaluation. Hematological evaluation. Follow up cultures and exam. IV hydration and monitor for change and we will discharge the patient when cleared by all. Ozzie Renteria M.D. DR: MARTY JOB#: [id number] CC:
[2018-10-15 16:00] VITALS: BP 115/88
--- NOTE | 2018-10-15 18:57 | NUR ---
HAND-OFF: Report given to BARBIE Jarvis.
--- NOTE | 2018-10-15 19:51 | NUR ---
NURSE NOTES: Received patient awake in bed, confused, no c/o pain at this time, no s/s of acute distress. IV access asymptomatic running IVF. Fall and safety precautions taken, yellow socks and yellow bracelet on patient. Call light and belongings within reach. Soft wrist restraints currently not on patient.
[2018-10-15 20:00] VITALS: BP 151/62
[2018-10-15] MEDS ORDERED: Vancomycin 750mg/NS 275ml IVPB SCH ×2 (20:00)
--- NOTE | 2018-10-15 20:45 | Consultation ---
History of Present Illness General Chief Complaint: Abnormal Labs Present Illness Allergies: Coded Allergies: ASPIRIN (Verified Allergy, Unknown, Altered Mental Status, 07/28/18) Medication History Scheduled Ascorbic Acid* (Vitamin C*), 500 MG ORAL DAILY, (Reported) Diclofenac Sodium (Voltaren), Unknown Dose TP EVERY 12 HOURS, (Reported) Levothyroxine Sodium* (Levothyroxine Sodium*), 100 MCG ORAL DAILY, (Reported) Losartan Potassium* (Losartan Potassium*), 50 MG ORAL DAILY, (Reported) Multivitamin With Minerals (Multivitamins With Minerals*), 1 TAB ORAL DAILY, ( Reported) Pantoprazole* (Pantoprazole*), 40 MG ORAL DAILY, (Reported) Quetiapine Fumarate* (Quetiapine Fumarate*), 25 MG ORAL Q6HR, (Reported) Rivaroxaban (Xarelto*), 20 MG ORAL DAILY, (Reported) Scheduled PRN Acetaminophen* (Acetaminophen 325MG Tablet*), 650 MG ORAL Q4H PRN for pain and Temp>101F, (Reported) Bisacodyl* (Dulcolax*), 10 MG ORAL DAILY PRN for Constipation, (Reported) Diphenhydramine Hcl* (Diphenhydramine Hcl*), 25 MG IVP Q8H PRN for Itching, ( Reported) Magnesium Hydroxide* (Milk Of Magnesia*), 30 ML ORAL DAILY PRN for Constipation, (Reported) Miscellaneous Medications Ceftriaxone Sod (Ceftriaxone 1 gm-D5w Bag), Unknown Dose, (Reported) Patient History Healthcare decision maker N Resuscitation status Do Not Resuscitate Advanced Directive on File No Physical Exam Last 24 Hour Vital Signs Date Time Temp Pulse Resp B/P (MAP) Pulse Ox O2 Delivery O2 Flow Rate FiO2 10/15/18 16:00 97.5 69 18 115/88 (97) 95 10/15/18 12:00 97.5 55 18 126/53 (77) 97 10/15/18 09:37 144/81 10/15/18 09:00 Room Air 10/15/18 08:00 97.7 68 20 144/81 (102) 99 10/15/18 04:00 97.5 65 20 147/89 (108) 100 10/15/18 01:58 Room Air 10/15/18 00:00 97.4 63 20 159/72 (101) 100 Intake and Output 10/14/18 10/15/18 18:59 06:59 Intake Total 110 ml Balance 110 ml IV Total 110 ml # Voids 1 2 Laboratory Tests Test 10/15/18 04:47 White Blood Count 17.4 K/UL (4.8-10.8) H Red Blood Count 4.11 M/UL (4.20-5.40) L Hemoglobin 13.1 G/DL (12.0-16.0) Hematocrit 39.7 % (37.0-47.0) Mean Corpuscular Volume 97 FL (80-99) Mean Corpuscular Hemoglobin 31.8 PG (27.0-31.0) H Mean Corpuscular Hemoglobin Concent 32.9 G/DL (32.0-36.0) Red Cell Distribution Width 13.7 % (11.6-14.8) Platelet Count 174 K/UL (150-450) Mean Platelet Volume 7.0 FL (6.5-10.1) Neutrophils (%) (Auto) % (45.0-75.0) Lymphocytes (%) (Auto) % (20.0-45.0) Monocytes (%) (Auto) % (1.0-10.0) Eosinophils (%) (Auto) % (0.0-3.0) Basophils (%) (Auto) % (0.0-2.0) Differential Total Cells Counted 100 Neutrophils % (Manual) 33 % (45-75) L Lymphocytes % (Manual) 57 % (20-45) H Monocytes % (Manual) 6 % (1-10) Eosinophils % (Manual) 3 % (0-3) Basophils % (Manual) 1 % (0-2) Band Neutrophils 0 % (0-8) Platelet Estimate Adequate Platelet Morphology Normal Sodium Level 143 MMOL/L (136-145) Potassium Level 3.7 MMOL/L (3.5-5.1) Chloride Level 108 MMOL/L (98-107) H Carbon Dioxide Level 24 MMOL/L (21-32) Anion Gap 11 mmol/L (5-15) Blood Urea Nitrogen 14 mg/dL (7-18) Creatinine 0.9 MG/DL (0.55-1.30) Estimat Glomerular Filtration Rate mL/min (>60) Glucose Level 81 MG/DL (74-106) Calcium Level 8.7 MG/DL (8.5-10.1) Lactate Dehydrogenase 285 U/L (81-234) H Height (Feet): 5 Height (Inches): 4.00 Weight (Pounds): 129 Medications Current Medications Medications (Trade) Dose Ordered Sig/Juan Route PRN Reason Start Time Stop Time Status Last Admin Dose Admin Acetaminophen (Tylenol) 650 mg Q4H PRN ORAL pain and Temp>101F 10/14/18 21:15 11/13/18 21:14 Ascorbic Acid (Vitamin C) 500 mg DAILY ORAL 10/15/18 09:00 11/14/18 08:59 10/15/18 09:37 Haloperidol Lactate (Haldol) 5 mg Q6H PRN IM Agitation 10/15/18 13:15 11/14/18 12:59 Heparin Sodium (Porcine) (Heparin 5000 units/ml) 5,000 units EVERY 12 HOURS SUBQ 10/15/18 09:00 11/14/18 08:59 10/15/18 09:38 Levothyroxine Sodium (Synthroid) 100 mcg DAILY ORAL 10/15/18 09:00 11/14/18 08:59 10/15/18 09:36 Losartan Potassium (Cozaar) 50 mg DAILY ORAL 10/15/18 09:00 11/14/18 08:59 10/15/18 09:37 Magnesium Hydroxide (Mom) 30 ml DAILYPRN PRN ORAL Constipation 10/14/18 21:15 11/13/18 21:14 Pantoprazole (Protonix) 40 mg DAILY ORAL 10/15/18 09:00 11/14/18 08:59 10/15/18 09:40 Piperacillin Sod/ Tazobactam Sod 3.375 gm/Sodium Chloride 110 ml @ 27.5 mls/hr Q8HR IVPB 10/15/18 00:00 10/22/18 00:00 10/15/18 13:54 Quetiapine Fumarate (SEROquel) 25 mg Q4H PRN ORAL agitation 10/15/18 13:00 11/14/18 12:59 Sodium Chloride 1,000 ml @ 100 mls/hr Q10H IV 10/14/18 21:15 11/13/18 21:14 10/14/18 21:42 Assessment/Plan Assessment/Plan: Hematology Consultation DATE OF ADMISSION: 10/15/2018 REASON FOR ADMISSION: Recurrent leukocytosis. RFC: Leukocytosis, lymphocytosis REQ MD: Ozzie Renteria HISTORY OF PRESENT ILLNESS: 87-year-old female, recently discharged with possibility of sepsis and leukocytosis. The patient overall did improve and white cell count did come down to near normal. The patient on followup testing in the residential was noted to have again significant leukocytosis, which was worsening in severity. The patient was brought in for evaluation through the emergency room and workup was fairly benign with exception of elevated white cell count. The patient did have CT of the abdomen showing retained feces, gastric antral wall thickening, ovarian cyst, uterine fibroids, compression fractures, but no significant acute findings. The patient is comfortable at present, agitated, demented at baseline. No other significant issues noted. The patient admitted for IV antibiotics and further acute optimization. The patient's care discussed and reviewed. Noticed to have a elevated wbc and lymphocytosis. PAST MEDICAL HISTORY: Notable for dementia, hypothyroidism, leukocytosis, recent sepsis, hypertension, mild psychosis, history of DVT and PE. MEDICATIONS: Reviewed. ALLERGIES: Reviewed. SOCIAL HISTORY: The patient resides at a [facility] facility. Nonsmoker and nondrinker. She is a Do Not Resuscitate. REVIEW OF SYSTEMS: Unobtainable. PHYSICAL EXAMINATION: GENERAL: A well-developed female, comfortable, but confused. VITAL SIGNS: Blood pressure 147/89, pulse 65, respirations 20, sats 100%, temperature 97.5. HEENT: Fairly negative. Extraocular movements are grossly intact. Oropharynx is moist. NECK: Supple. LUNGS: With good air entry. No significant rhonchi. CARDIAC: S1, S2. Regular rate and rhythm without murmurs, rubs, gallops. ABDOMEN: Soft, nontender. No distention. EXTREMITIES: No cyanosis or clubbing. There is degenerative joint disease. NEUROLOGICAL: Grossly nonfocal, but confused. Current Medications Medications (Trade) Dose Ordered Sig/Juan Route PRN Reason Start Time Stop Time Status Last Admin Dose Admin Acetaminophen (Tylenol) 650 mg Q4H PRN ORAL pain and Temp>101F 10/14/18 21:15 11/13/18 21:14 Ascorbic Acid (Vitamin C) 500 mg DAILY ORAL 10/15/18 09:00 11/14/18 08:59 10/15/18 09:37 Haloperidol Lactate (Haldol) 5 mg Q6H PRN IM Agitation 10/15/18 13:15 11/14/18 12:59 Heparin Sodium (Porcine) (Heparin 5000 units/ml) 5,000 units EVERY 12 HOURS SUBQ 10/15/18 09:00 11/14/18 08:59 10/15/18 09:38 Levothyroxine Sodium (Synthroid) 100 mcg DAILY ORAL 10/15/18 09:00 11/14/18 08:59 10/15/18 09:36 Losartan Potassium (Cozaar) 50 mg DAILY ORAL 10/15/18 09:00 11/14/18 08:59 10/15/18 09:37 Magnesium Hydroxide (Mom) 30 ml DAILYPRN PRN ORAL Constipation 10/14/18 21:15 11/13/18 21:14 Pantoprazole (Protonix) 40 mg DAILY ORAL 10/15/18 09:00 11/14/18 08:59 10/15/18 09:40 Piperacillin Sod/ Tazobactam Sod 3.375 gm/Sodium Chloride 110 ml @ 27.5 mls/hr Q8HR IVPB 10/15/18 00:00 10/22/18 00:00 10/15/18 13:54 Quetiapine Fumarate (SEROquel) 25 mg Q4H PRN ORAL agitation 10/15/18 13:00 11/14/18 12:59 Sodium Chloride 1,000 ml @ 100 mls/hr Q10H IV 10/14/18 21:15 11/13/18 21:14 10/14/18 21:42 Laboratory Tests Test 10/15/18 04:47 White Blood Count 17.4 K/UL (4.8-10.8) H Red Blood Count 4.11 M/UL (4.20-5.40) L Hemoglobin 13.1 G/DL (12.0-16.0) Hematocrit 39.7 % (37.0-47.0) Mean Corpuscular Volume 97 FL (80-99) Mean Corpuscular Hemoglobin 31.8 PG (27.0-31.0) H Mean Corpuscular Hemoglobin Concent 32.9 G/DL (32.0-36.0) Red Cell Distribution Width 13.7 % (11.6-14.8) Platelet Count 174 K/UL (150-450) Mean Platelet Volume 7.0 FL (6.5-10.1) Neutrophils (%) (Auto) % (45.0-75.0) Lymphocytes (%) (Auto) % (20.0-45.0) Monocytes (%) (Auto) % (1.0-10.0) Eosinophils (%) (Auto) % (0.0-3.0) Basophils (%) (Auto) % (0.0-2.0) Differential Total Cells Counted 100 Neutrophils % (Manual) 33 % (45-75) L Lymphocytes % (Manual) 57 % (20-45) H Monocytes % (Manual) 6 % (1-10) Eosinophils % (Manual) 3 % (0-3) Basophils % (Manual) 1 % (0-2) Band Neutrophils 0 % (0-8) Platelet Estimate Adequate Platelet Morphology Normal Sodium Level 143 MMOL/L (136-145) Potassium Level 3.7 MMOL/L (3.5-5.1) Chloride Level 108 MMOL/L (98-107) H Carbon Dioxide Level 24 MMOL/L (21-32) Anion Gap 11 mmol/L (5-15) Blood Urea Nitrogen 14 mg/dL (7-18) Creatinine 0.9 MG/DL (0.55-1.30) Estimat Glomerular Filtration Rate mL/min (>60) Glucose Level 81 MG/DL (74-106) Calcium Level 8.7 MG/DL (8.5-10.1) Lactate Dehydrogenase 285 U/L (81-234) H IMPRESSION: #. Persistent leukocytosis, does have mostly lymphocytes involved, this would be concerning for potentially early CLL/SLL versus other type of chronic leukemia --> have ordered for IgM, IgA, IgG --> have ordered for flow cytometry to r/o CLL, this is a send out test --> likely of acute leukemia is low, would consider to hold off a bone marrow biopsy --> monitor for fevers, chills, weight loss --> smear has been ordered #. Severe protein-calorie malnutrition --> monitor calorie count --> monitor po intake and nutrition eval --> consider mirtazapine v marinol #. Elevated LDH #. Dementia with psychosis #. Hypothyroidism #. Hypertension. The timing of this note does not necessarily reflect the time of the patient was seen. Greatly appreciate consultation! Adis Skinner MD Oct 15, 2018 20:45
[2018-10-16 00:43] VITALS: BP 146/66
[2018-10-16 04:00] VITALS: BP 136/66
[2018-10-16] MEDS: Piperacillin/Tazobactam 3.375 GM in NS 110 ML IVPB SCH ×3 (05:16→22:38)
--- NOTE | 2018-10-16 07:05 | NUR ---
NURSE NOTES: RN received pt in stable condition, sleeping in bed. No signs or symptoms of acute distress or SOB. Bed in low, locked position, call light within reach. Will continue to monitor.
[2018-10-16 08:00] VITALS: BP 119/86
[2018-10-16] MEDS: Ascorbic Acid 500mg tab ORAL SCH (08:47)
[2018-10-16] MEDS: Losartan 50mg tab ORAL SCH (08:47)
[2018-10-16] MEDS: Heparin 5000 units/ml inj SUBQ SCH ×2 (08:48→20:01)
--- NOTE | 2018-10-16 11:42 | NUR ---
NURSE NOTES: Pt cleaned with ROAD ROLLER OPERATOR. Wounds assessed, bandages intact, triad applied. Lotion applied to dry skin. Heels floating. Will continue to monitor.
[2018-10-16 12:00] VITALS: BP 128/73
--- NOTE | 2018-10-16 12:48 | Infectious Diseases Prog Note ---
Assessment/Plan Assessment/Plan A; Leukocytosis, Lymphocytosis, ? CLL Dementia HPN Hypothyroidism Rash P: Continue Zosyn If cultures remain negative will discontinue antibiotic soon Subjective ROS Limited/Unobtainable: Yes Constitutional: Reports: no symptoms Allergies: Coded Allergies: ASPIRIN (Verified Allergy, Unknown, Altered Mental Status, 07/28/18) Objective Vital Signs Last 24 Hour Vital Signs Date Time Temp Pulse Resp B/P (MAP) Pulse Ox O2 Delivery O2 Flow Rate FiO2 10/16/18 12:00 97.5 83 18 128/73 (91) 96 10/16/18 09:00 Room Air 10/16/18 08:47 119/86 10/16/18 08:00 98.6 69 18 119/86 (97) 96 10/16/18 04:00 98.3 67 16 136/66 (89) 95 10/16/18 00:43 97.5 55 18 146/66 (92) 95 10/15/18 23:29 Room Air 10/15/18 20:00 97.7 59 17 151/62 (91) 95 10/15/18 16:00 97.5 69 18 115/88 (97) 95 Height (Feet): 5 Height (Inches): 4.00 Weight (Pounds): 129 General Appearance: no acute distress HEENT: mucous membranes moist Respiratory/Chest: lungs clear Cardiovascular: normal rate Abdomen: soft, non tender Extremities: no edema Neurologic/Psychiatric: disoriented Microbiology Date/Time Source Procedure Growth Status 10/14/18 14:30 Blood Blood Culture - Preliminary NO GROWTH AFTER 24 HOURS Resulted 10/14/18 14:15 Blood Blood Culture - Preliminary NO GROWTH AFTER 24 HOURS Resulted 10/14/18 20:00 Rectum Received Current Medications Medications (Trade) Dose Ordered Sig/Juan Route PRN Reason Start Time Stop Time Status Last Admin Dose Admin Acetaminophen (Tylenol) 650 mg Q4H PRN ORAL pain and Temp>101F 10/14/18 21:15 11/13/18 21:14 Ascorbic Acid (Vitamin C) 500 mg DAILY ORAL 10/15/18 09:00 11/14/18 08:59 10/16/18 08:47 Haloperidol Lactate (Haldol) 5 mg Q6H PRN IM Agitation 10/15/18 13:15 11/14/18 12:59 Heparin Sodium (Porcine) (Heparin 5000 units/ml) 5,000 units EVERY 12 HOURS SUBQ 10/15/18 09:00 11/14/18 08:59 10/16/18 08:48 Levothyroxine Sodium (Synthroid) 100 mcg DAILY ORAL 10/15/18 09:00 11/14/18 08:59 10/16/18 08:47 Losartan Potassium (Cozaar) 50 mg DAILY ORAL 10/15/18 09:00 11/14/18 08:59 10/16/18 08:47 Magnesium Hydroxide (Mom) 30 ml DAILYPRN PRN ORAL Constipation 10/14/18 21:15 11/13/18 21:14 Pantoprazole (Protonix) 40 mg DAILY ORAL 10/15/18 09:00 11/14/18 08:59 10/16/18 08:47 Piperacillin Sod/ Tazobactam Sod 3.375 gm/Sodium Chloride 110 ml @ 27.5 mls/hr Q8HR IVPB 10/15/18 00:00 10/22/18 00:00 10/16/18 05:16 Quetiapine Fumarate (SEROquel) 25 mg Q4H PRN ORAL agitation 10/15/18 13:00 11/14/18 12:59 Sodium Chloride 1,000 ml @ 100 mls/hr Q10H IV 10/14/18 21:15 11/13/18 21:14 10/16/18 03:40 Robbin Flaherty MD Oct 16, 2018 12:48
--- NOTE | 2018-10-16 15:47 | General Progress Note ---
Assessment/Plan Assessment/Plan: IMPRESSION: #. Persistent leukocytosis, does have mostly lymphocytes involved, this would be concerning for potentially early CLL/SLL versus other type of chronic leukemia --> have ordered for IgM, IgA, IgG --> have ordered for flow cytometry to r/o CLL, this is a send out test --> likely of acute leukemia is low, would consider to hold off a bone marrow biopsy --> monitor for fevers, chills, weight loss --> smear has been ordered #. Severe protein-calorie malnutrition --> monitor calorie count --> monitor po intake and nutrition eval --> consider mirtazapine v marinol #. Elevated LDH #. Dementia with psychosis #. Hypothyroidism #. Hypertension. The timing of this note does not necessarily reflect the time of the patient was seen. Greatly appreciate consultation! Subjective Constitutional: Denies: no symptoms, chills, diaphoresis, fever, malaise, weakness, other HEENT: Denies: no symptoms, eye pain, blurred vision, tearing, double vision, ear pain, ear discharge, nose pain, nose congestion, throat pain, throat swelling, mouth pain, mouth swelling, other Cardiovascular: Denies: no symptoms, chest pain, edema, irregular heart rate, lightheadedness, palpitations, syncope, other Respiratory: Denies: no symptoms, cough, orthopnea, shortness of breath, SOB with excertion, SOB at rest, sputum, stridor, wheezing, other Gastrointestinal/Abdominal: Denies: no symptoms, abdomen distended, abdominal pain, black stools, tarry stools, blood in stool, constipated, diarrhea, difficulty swallowing, nausea, poor appetite, poor fluid intake, rectal bleeding , vomiting, other Genitourinary: Denies: no symptoms, burning, discharge, frequency, flank pain, hematuria, incontinence, pain, urgency, other Neurologic/Psychiatric: Denies: no symptoms, anxiety, depressed, emotional problems, headache, numbness, paresthesia, pre-existing deficit, seizure, tingling, tremors, weakness, other Allergies: Coded Allergies: ASPIRIN (Verified Allergy, Unknown, Altered Mental Status, 07/28/18) Subjective 10/16: patient was cleaned this am, no complaints noted Objective Last 24 Hour Vital Signs Date Time Temp Pulse Resp B/P (MAP) Pulse Ox O2 Delivery O2 Flow Rate FiO2 10/16/18 12:00 97.5 83 18 128/73 (91) 96 10/16/18 09:00 Room Air 10/16/18 08:47 119/86 10/16/18 08:00 98.6 69 18 119/86 (97) 96 10/16/18 04:00 98.3 67 16 136/66 (89) 95 10/16/18 00:43 97.5 55 18 146/66 (92) 95 10/15/18 23:29 Room Air 10/15/18 20:00 97.7 59 17 151/62 (91) 95 10/15/18 16:00 97.5 69 18 115/88 (97) 95 Intake and Output 10/15/18 10/16/18 19:00 07:00 Intake Total 640 ml Balance 640 ml Intake Oral 640 ml # Voids 6 3 # Bowel Movements 1 2 Height (Feet): 5 Height (Inches): 4.00 Weight (Pounds): 129 Objective PHYSICAL EXAMINATION: GENERAL: A well-developed female, comfortable, but confused. VITAL SIGNS: Blood pressure 147/89, pulse 65, respirations 20, sats 100%, temperature 97.5. HEENT: Fairly negative. Extraocular movements are grossly intact. Oropharynx is moist. NECK: Supple. LUNGS: With good air entry. No significant rhonchi. CARDIAC: S1, S2. Regular rate and rhythm without murmurs, rubs, gallops. ABDOMEN: Soft, nontender. No distention. EXTREMITIES: No cyanosis or clubbing. There is degenerative joint disease. NEUROLOGICAL: Grossly nonfocal, but confused. Adis Skinner MD Oct 16, 2018 15:47
--- NOTE | 2018-10-16 15:58 | NUR ---
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
[2018-10-16 16:00] VITALS: BP 115/80
--- NOTE | 2018-10-16 17:15 | General Progress Note ---
Assessment/Plan Assessment/Plan: IMPRESSION: 1. Recurrent leukocytosis, possible sepsis versus hematological disorder, unclear. 2. Severe protein-calorie malnutrition. 3. Elevated LDH. 4. Dementia with psychosis. 5. Hypothyroidism. 6. Hypertension. PLAN care noted await heme work up same for now monitor counts and labs care noted and reviewed impression, plan, and exam edited and reviewed in detail care discussed with RN Subjective ROS Limited/Unobtainable: Yes Allergies: Coded Allergies: ASPIRIN (Verified Allergy, Unknown, Altered Mental Status, 07/28/18) Subjective reviewed care heme noted ID noted Objective Last 24 Hour Vital Signs Date Time Temp Pulse Resp B/P (MAP) Pulse Ox O2 Delivery O2 Flow Rate FiO2 10/16/18 16:00 97.9 76 18 115/80 (92) 96 10/16/18 12:00 97.5 83 18 128/73 (91) 96 10/16/18 09:00 Room Air 10/16/18 08:47 119/86 10/16/18 08:00 98.6 69 18 119/86 (97) 96 10/16/18 04:00 98.3 67 16 136/66 (89) 95 10/16/18 00:43 97.5 55 18 146/66 (92) 95 10/15/18 23:29 Room Air 10/15/18 20:00 97.7 59 17 151/62 (91) 95 Intake and Output 10/15/18 10/16/18 19:00 07:00 Intake Total 640 ml Balance 640 ml Intake Oral 640 ml # Voids 6 3 # Bowel Movements 1 2 Height (Feet): 5 Height (Inches): 4.00 Weight (Pounds): 129 Objective GENERAL: A well-developed female, comfortable, but confused. HEENT: Fairly negative. Extraocular movements are grossly intact. Oropharynx is moist. NECK: Supple. LUNGS: With good air entry. No significant rhonchi. CARDIAC: S1, S2. Regular rate and rhythm without murmurs, rubs, gallops. ABDOMEN: Soft, nontender. No distention. EXTREMITIES: No cyanosis or clubbing. There is degenerative joint disease. NEUROLOGICAL: Grossly nonfocal, but confused. Ozzie Renteria MD Oct 16, 2018 17:15
--- NOTE | 2018-10-16 19:02 | NUR ---
HAND-OFF: Report given to BARBIE Jarvis.
--- NOTE | 2018-10-16 19:34 | NUR ---
NURSE NOTES: Received patient awake in bed, confused, no c/o pain at this time, no s/s of acute distress. IV access asymptomatic running IVF. Fall and safety precautions taken, yellow socks and yellow bracelet on patient. Call light and belongings within reach.
[2018-10-16 20:00] VITALS: BP 156/64
--- NOTE | 2018-10-16 21:45 | Psych Consult Progress Note ---
Psychiatry Progress Note Psychiatry Progress Note Medications Current Medications Medications (Trade) Dose Ordered Sig/Juan Route PRN Reason Start Time Stop Time Status Last Admin Dose Admin Acetaminophen (Tylenol) 650 mg Q4H PRN ORAL pain and Temp>101F 10/14/18 21:15 11/13/18 21:14 Ascorbic Acid (Vitamin C) 500 mg DAILY ORAL 10/15/18 09:00 11/14/18 08:59 10/16/18 08:47 Haloperidol Lactate (Haldol) 5 mg Q6H PRN IM Agitation 10/15/18 13:15 11/14/18 12:59 Heparin Sodium (Porcine) (Heparin 5000 units/ml) 5,000 units EVERY 12 HOURS SUBQ 10/15/18 09:00 11/14/18 08:59 10/16/18 20:01 Levothyroxine Sodium (Synthroid) 100 mcg DAILY ORAL 10/15/18 09:00 11/14/18 08:59 10/16/18 08:47 Losartan Potassium (Cozaar) 50 mg DAILY ORAL 10/15/18 09:00 11/14/18 08:59 10/16/18 08:47 Magnesium Hydroxide (Mom) 30 ml DAILYPRN PRN ORAL Constipation 10/14/18 21:15 11/13/18 21:14 Pantoprazole (Protonix) 40 mg DAILY ORAL 10/15/18 09:00 11/14/18 08:59 10/16/18 08:47 Piperacillin Sod/ Tazobactam Sod 3.375 gm/Sodium Chloride 110 ml @ 27.5 mls/hr Q8HR IVPB 10/15/18 00:00 10/22/18 00:00 10/16/18 13:06 Quetiapine Fumarate (SEROquel) 25 mg Q4H PRN ORAL agitation 10/15/18 13:00 11/14/18 12:59 Sodium Chloride 1,000 ml @ 100 mls/hr Q10H IV 10/14/18 21:15 11/13/18 21:14 10/16/18 03:40 Neurological/Psychiatric: Reports: anxiety, depressed, emotional problems Allergies: Coded Allergies: ASPIRIN (Verified Allergy, Unknown, Altered Mental Status, 07/28/18) Objective Data Height (Feet): 5 Height (Inches): 4.00 Weight (Pounds): 129 General Appearance: alert, confused, agitated Appearance: no abnormalities noted Behavior Mannerisms: poor eye contact Mental Status Exam - Affect: blunted Mental Status Exam - Mood: anxious, agitated Speech: dysarthric Mental Status Exam - Thought P: illogical Mental Status Exam - Suicidal: not present Assessment/Plan Problem List: (1) Dementia with behavioral disturbance ICD Codes: F03.91 - Unspecified dementia with behavioral disturbance SNOMED: 8521330055534 (2) Acute metabolic encephalopathy ICD Codes: G93.41 - Metabolic encephalopathy SNOMED: 14589684, [id number] Assessment/Plan: seroquel po prn haldol prn provided ro/Hubert Suárez MD Oct 16, 2018 21:45
--- NOTE | 2018-10-16 22:02 | Cardiology Report ---
APPROVED REPORT EKG Measurement Heart [id number] CA [id number] [id number] Sinus bradycardia Left axis deviation Voltage criteria for left ventricular hypertrophy Cannot rule out Septal infarct, age undetermined Abnormal ECG
[2018-10-17] VITALS: BP 160/59
[2018-10-17 04:00] VITALS: BP 156/66
[2018-10-17] MEDS: Piperacillin/Tazobactam 3.375 GM in NS 110 ML IVPB SCH ×3 (06:39→22:37)
--- NOTE | 2018-10-17 07:00 | NUR ---
HAND-OFF: Report given to BARBIE Turpin.
--- NOTE | 2018-10-17 07:01 | NUR ---
NURSE NOTES: Per maintenance supervisor 2nd shift nurse Simona, restraint order was completed on her shift.
--- NOTE | 2018-10-17 07:15 | NUR ---
NURSE NOTES: Received patient in bed, asleep @ this time. Breathing is even and unlabored. IV intact, no s/s of infiltration. Bed is in lowest position and locked. Call light within reach, bed alarm is on Will continue plan of care.
--- NOTE | 2018-10-17 07:33 | Pulmonology Progress Note ---
Assessment/Plan Assessment/Plan Pulmonary Progress Note Assessment/Plan: IMPRESSION: 1. Recurrent leukocytosis, possible sepsis versus hematological disorder, unclear. 2. Severe protein-calorie malnutrition. 3. Elevated LDH. 4. Dementia with psychosis. 5. Hypothyroidism. 6. Hypertension. PLAN care noted await heme work up same for now monitor counts and labs care noted and reviewed impression, plan, and exam edited and reviewed in detail care discussed with RN Allergies: ASPIRIN Subjective reviewed care heme noted ID noted Objective Vital Signs Noted Height (Feet): 5 Height (Inches): 4.00 Weight (Pounds): 129 Objective GENERAL: A well-developed female, comfortable, but confused. HEENT: Fairly negative. Extraocular movements are grossly intact. Oropharynx is moist. NECK: Supple. LUNGS: With good air entry. No significant rhonchi. CARDIAC: S1, S2. Regular rate and rhythm without murmurs, rubs, gallops. ABDOMEN: Soft, nontender. No distention. EXTREMITIES: No cyanosis or clubbing. There is degenerative joint disease. NEUROLOGICAL: Grossly nonfocal, but confused. Subjective ROS Limited/Unobtainable: No Allergies: Coded Allergies: ASPIRIN (Verified Allergy, Unknown, Altered Mental Status, 07/28/18) Objective Last 24 Hour Vital Signs Date Time Temp Pulse Resp B/P (MAP) Pulse Ox O2 Delivery O2 Flow Rate FiO2 10/17/18 04:00 98.4 56 19 156/66 (96) 99 10/17/18 00:00 98.1 53 20 160/59 (92) 99 10/16/18 22:58 Room Air 10/16/18 20:00 98.6 59 18 156/64 (94) 99 10/16/18 16:00 97.9 76 18 115/80 (92) 96 10/16/18 12:00 97.5 83 18 128/73 (91) 96 10/16/18 09:00 Room Air 10/16/18 08:47 119/86 10/16/18 08:00 98.6 69 18 119/86 (97) 96 Intake and Output 10/16/18 10/17/18 19:00 07:00 Output Total 400 ml 1000 ml Balance -400 ml -1000 ml Output Urine Total 400 ml 1000 ml # Bowel Movements 2 1 Microbiology Date/Time Source Procedure Growth Status 10/14/18 14:30 Blood Blood Culture - Preliminary NO GROWTH AFTER 48 HOURS Resulted 10/14/18 14:15 Blood Blood Culture - Preliminary NO GROWTH AFTER 48 HOURS Resulted 10/14/18 20:00 Nasal Nares MRSA Culture - Final NO METHICILLIN RESISTANT STAPH AUREUS... Complete 10/14/18 20:00 Rectum VRE Culture - Final Enterococcus Faecium - Vre Complete Current Medications Medications (Trade) Dose Ordered Sig/Juan Route PRN Reason Start Time Stop Time Status Last Admin Dose Admin Acetaminophen (Tylenol) 650 mg Q4H PRN ORAL pain and Temp>101F 10/14/18 21:15 11/13/18 21:14 Ascorbic Acid (Vitamin C) 500 mg DAILY ORAL 10/15/18 09:00 11/14/18 08:59 10/16/18 08:47 Haloperidol Lactate (Haldol) 5 mg Q6H PRN IM Agitation 10/15/18 13:15 11/14/18 12:59 Heparin Sodium (Porcine) (Heparin 5000 units/ml) 5,000 units EVERY 12 HOURS SUBQ 10/15/18 09:00 11/14/18 08:59 10/16/18 20:01 Levothyroxine Sodium (Synthroid) 100 mcg DAILY ORAL 10/15/18 09:00 11/14/18 08:59 10/16/18 08:47 Losartan Potassium (Cozaar) 50 mg DAILY ORAL 10/15/18 09:00 11/14/18 08:59 10/16/18 08:47 Magnesium Hydroxide (Mom) 30 ml DAILYPRN PRN ORAL Constipation 10/14/18 21:15 11/13/18 21:14 Pantoprazole (Protonix) 40 mg DAILY ORAL 10/15/18 09:00 11/14/18 08:59 10/16/18 08:47 Piperacillin Sod/ Tazobactam Sod 3.375 gm/Sodium Chloride 110 ml @ 27.5 mls/hr Q8HR IVPB 10/15/18 00:00 10/22/18 00:00 10/17/18 06:39 Quetiapine Fumarate (SEROquel) 25 mg Q4H PRN ORAL agitation 10/15/18 13:00 11/14/18 12:59 Sodium Chloride 1,000 ml @ 100 mls/hr Q10H IV 10/14/18 21:15 11/13/18 21:14 10/16/18 03:40 King Veliz MD Oct 17, 2018 07:33
[2018-10-17 08:00] VITALS: BP 153/61
[2018-10-17] MEDS: Losartan 50mg tab ORAL SCH (09:20)
[2018-10-17] MEDS: Ascorbic Acid 500mg tab ORAL SCH (09:20)
[2018-10-17] MEDS: Heparin 5000 units/ml inj SUBQ SCH ×2 (09:23→20:30)
--- NOTE | 2018-10-17 11:00 | NUR ---
NURSE NOTES: RN changed the wound dressing and picture obtained and uploaded. No new skin issue.
[2018-10-17 12:00] VITALS: BP 141/72
[2018-10-17 16:00] VITALS: BP 130/81
--- NOTE | 2018-10-17 19:40 | NUR ---
HAND-OFF: Report given to Jasmyne.
--- NOTE | 2018-10-17 19:41 | NUR ---
NURSE NOTES: Received patient in bed, asleep, no acute distress noted, VSS, afebrile, patient is bedbound, on room air, call light is within reach, bed is in low position, locked and alarm is on. Will continue to monitor for safety and comfort.
[2018-10-17 20:27] VITALS: BP 139/64
--- NOTE | 2018-10-17 22:08 | Psych Consult Progress Note ---
Psychiatry Progress Note Psychiatry Progress Note Medications Current Medications Medications (Trade) Dose Ordered Sig/Juan Route PRN Reason Start Time Stop Time Status Last Admin Dose Admin Acetaminophen (Tylenol) 650 mg Q4H PRN ORAL pain and Temp>101F 10/14/18 21:15 11/13/18 21:14 Ascorbic Acid (Vitamin C) 500 mg DAILY ORAL 10/15/18 09:00 11/14/18 08:59 10/17/18 09:20 Haloperidol Lactate (Haldol) 5 mg Q6H PRN IM Agitation 10/15/18 13:15 11/14/18 12:59 Heparin Sodium (Porcine) (Heparin 5000 units/ml) 5,000 units EVERY 12 HOURS SUBQ 10/15/18 09:00 11/14/18 08:59 10/17/18 20:30 Levothyroxine Sodium (Synthroid) 100 mcg DAILY ORAL 10/15/18 09:00 11/14/18 08:59 10/17/18 09:20 Losartan Potassium (Cozaar) 50 mg DAILY ORAL 10/15/18 09:00 11/14/18 08:59 10/17/18 09:20 Magnesium Hydroxide (Mom) 30 ml DAILYPRN PRN ORAL Constipation 10/14/18 21:15 11/13/18 21:14 Pantoprazole (Protonix) 40 mg DAILY ORAL 10/15/18 09:00 11/14/18 08:59 10/17/18 09:20 Piperacillin Sod/ Tazobactam Sod 3.375 gm/Sodium Chloride 110 ml @ 27.5 mls/hr Q8HR IVPB 10/15/18 00:00 10/22/18 00:00 10/17/18 13:45 Quetiapine Fumarate (SEROquel) 25 mg Q4H PRN ORAL agitation 10/15/18 13:00 11/14/18 12:59 Sodium Chloride 1,000 ml @ 100 mls/hr Q10H IV 10/14/18 21:15 11/13/18 21:14 10/17/18 09:23 Neurological/Psychiatric: Reports: anxiety, depressed, emotional problems Allergies: Coded Allergies: ASPIRIN (Verified Allergy, Unknown, Altered Mental Status, 07/28/18) Objective Data Height (Feet): 5 Height (Inches): 4.00 Weight (Pounds): 129 General Appearance: alert, confused, agitated Appearance: no abnormalities noted Behavior Mannerisms: poor eye contact Mental Status Exam - Affect: flat Mental Status Exam - Mood: agitated Mental Status Exam - Thought P: tangential, confusion Mental Status Exam - Suicidal: not present Assessment/Plan Problem List: (1) Dementia with behavioral disturbance ICD Codes: F03.91 - Unspecified dementia with behavioral disturbance SNOMED: 7943351774781 (2) Acute metabolic encephalopathy ICD Codes: G93.41 - Metabolic encephalopathy SNOMED: 73162744, [id number] Assessment/Plan: seroquel po prn haldol prn provided /Hubert Suárez MD Oct 17, 2018 22:08
[2018-10-18] VITALS: BP 133/72
[2018-10-18 04:00] VITALS: BP 147/86
[2018-10-18] MEDS: Piperacillin/Tazobactam 3.375 GM in NS 110 ML IVPB SCH (05:47)
--- NOTE | 2018-10-18 06:50 | NUR ---
HAND-OFF: Report given to Papi VALENTIN.
--- NOTE | 2018-10-18 07:33 | NUR ---
NURSE NOTES: Received patient in bed having breakfast @ this time. Breathing is even and unlabored.No s/s of pain or discomfort per FLACC pain scale. IV intact, no s/s of infiltration.No episodes of trying to remove her IV or get out of the bed. Bed is in lowest position and locked. Call light within reach, bed alarm is on. Will continue plan of care.
[2018-10-18 08:00] VITALS: BP 99/67
[2018-10-18] MEDS: Ascorbic Acid 500mg tab ORAL SCH (08:57)
[2018-10-18] MEDS: Losartan 50mg tab ORAL SCH (09:00)
[2018-10-18] MEDS: Heparin 5000 units/ml inj SUBQ SCH ×2 (09:01→20:41)
--- NOTE | 2018-10-18 09:32 | Pulmonology Progress Note ---
Assessment/Plan Assessment/Plan Pulmonary Progress Note Assessment/Plan: IMPRESSION: 1. Recurrent leukocytosis, possible sepsis versus hematological disorder, unclear. 2. Severe protein-calorie malnutrition. 3. Elevated LDH. 4. Dementia with psychosis. 5. Hypothyroidism. 6. Hypertension. PLAN care noted await heme work up same for now monitor counts and labs care noted and reviewed impression, plan, and exam edited and reviewed in detail care discussed with RN Allergies: ASPIRIN Subjective reviewed care heme noted ID noted Objective Vital Signs Noted Height (Feet): 5 Height (Inches): 4.00 Weight (Pounds): 129 Objective GENERAL: A well-developed female, comfortable, but confused. HEENT: Fairly negative. Extraocular movements are grossly intact. Oropharynx is moist. NECK: Supple. LUNGS: With good air entry. No significant rhonchi. CARDIAC: S1, S2. Regular rate and rhythm without murmurs, rubs, gallops. ABDOMEN: Soft, nontender. No distention. EXTREMITIES: No cyanosis or clubbing. There is degenerative joint disease. NEUROLOGICAL: Grossly nonfocal, but confused. Subjective ROS Limited/Unobtainable: No Allergies: Coded Allergies: ASPIRIN (Verified Allergy, Unknown, Altered Mental Status, 07/28/18) Objective Last 24 Hour Vital Signs Date Time Temp Pulse Resp B/P (MAP) Pulse Ox O2 Delivery O2 Flow Rate FiO2 10/18/18 09:00 Room Air 10/18/18 09:00 99/67 10/18/18 08:00 97.4 83 16 99/67 (78) 99 10/18/18 04:00 98.0 86 18 147/86 (106) 10/18/18 00:00 97.3 53 18 133/72 (92) 10/17/18 21:00 Room Air 10/17/18 20:27 98.0 77 16 139/64 (89) 10/17/18 16:00 97.9 63 19 130/81 (97) 98 10/17/18 12:00 97.7 59 19 141/72 (95) 98 Intake and Output 10/17/18 10/18/18 19:00 07:00 Intake Total 1710.0 ml 2040 ml Output Total 1700 ml Balance 1710.0 ml 340 ml Intake Oral 640 ml IV Total 810.0 ml 500 ml Other 900 ml 900 ml Output Urine Total 1700 ml # Voids 3 # Bowel Movements 2 Current Medications Medications (Trade) Dose Ordered Sig/Juan Route PRN Reason Start Time Stop Time Status Last Admin Dose Admin Acetaminophen (Tylenol) 650 mg Q4H PRN ORAL pain and Temp>101F 10/14/18 21:15 11/13/18 21:14 Ascorbic Acid (Vitamin C) 500 mg DAILY ORAL 10/15/18 09:00 11/14/18 08:59 10/18/18 08:57 Haloperidol Lactate (Haldol) 5 mg Q6H PRN IM Agitation 10/15/18 13:15 11/14/18 12:59 Heparin Sodium (Porcine) (Heparin 5000 units/ml) 5,000 units EVERY 12 HOURS SUBQ 10/15/18 09:00 11/14/18 08:59 10/18/18 09:01 Levothyroxine Sodium (Synthroid) 100 mcg DAILY ORAL 10/15/18 09:00 11/14/18 08:59 10/18/18 08:57 Losartan Potassium (Cozaar) 50 mg DAILY ORAL 10/15/18 09:00 11/14/18 08:59 10/17/18 09:20 Magnesium Hydroxide (Mom) 30 ml DAILYPRN PRN ORAL Constipation 10/14/18 21:15 11/13/18 21:14 Pantoprazole (Protonix) 40 mg DAILY ORAL 10/15/18 09:00 11/14/18 08:59 10/18/18 08:57 Piperacillin Sod/ Tazobactam Sod 3.375 gm/Sodium Chloride 110 ml @ 27.5 mls/hr Q8HR IVPB 10/15/18 00:00 10/22/18 00:00 10/18/18 05:47 Quetiapine Fumarate (SEROquel) 25 mg Q4H PRN ORAL agitation 10/15/18 13:00 11/14/18 12:59 Sodium Chloride 1,000 ml @ 100 mls/hr Q10H IV 10/14/18 21:15 11/13/18 21:14 10/18/18 05:47 King Veliz MD Oct 18, 2018 09:32
--- NOTE | 2018-10-18 11:12 | Infectious Diseases Prog Note ---
Assessment/Plan Assessment/Plan A; Leukocytosis, Lymphocytosis, ? CLL Dementia HPN Hypothyroidism Rash P: Discontinue Zosyn f/u CBC Subjective ROS Limited/Unobtainable: Yes Neurologic: Reports: confusion Allergies: Coded Allergies: ASPIRIN (Verified Allergy, Unknown, Altered Mental Status, 07/28/18) Objective Vital Signs Last 24 Hour Vital Signs Date Time Temp Pulse Resp B/P (MAP) Pulse Ox O2 Delivery O2 Flow Rate FiO2 10/18/18 09:00 Room Air 10/18/18 09:00 99/67 10/18/18 08:00 97.4 83 16 99/67 (78) 99 10/18/18 04:00 98.0 86 18 147/86 (106) 10/18/18 00:00 97.3 53 18 133/72 (92) 10/17/18 21:00 Room Air 10/17/18 20:27 98.0 77 16 139/64 (89) 10/17/18 16:00 97.9 63 19 130/81 (97) 98 10/17/18 12:00 97.7 59 19 141/72 (95) 98 Height (Feet): 5 Height (Inches): 4.00 Weight (Pounds): 129 HEENT: mucous membranes moist Respiratory/Chest: lungs clear Cardiovascular: normal rate Abdomen: soft, non tender Extremities: no edema Neurologic/Psychiatric: responsive, disoriented Current Medications Medications (Trade) Dose Ordered Sig/Juan Route PRN Reason Start Time Stop Time Status Last Admin Dose Admin Acetaminophen (Tylenol) 650 mg Q4H PRN ORAL pain and Temp>101F 10/14/18 21:15 11/13/18 21:14 Ascorbic Acid (Vitamin C) 500 mg DAILY ORAL 10/15/18 09:00 11/14/18 08:59 10/18/18 08:57 Haloperidol Lactate (Haldol) 5 mg Q6H PRN IM Agitation 10/15/18 13:15 11/14/18 12:59 Heparin Sodium (Porcine) (Heparin 5000 units/ml) 5,000 units EVERY 12 HOURS SUBQ 10/15/18 09:00 11/14/18 08:59 10/18/18 09:01 Levothyroxine Sodium (Synthroid) 100 mcg DAILY ORAL 10/15/18 09:00 11/14/18 08:59 10/18/18 08:57 Losartan Potassium (Cozaar) 50 mg DAILY ORAL 10/15/18 09:00 11/14/18 08:59 10/17/18 09:20 Magnesium Hydroxide (Mom) 30 ml DAILYPRN PRN ORAL Constipation 10/14/18 21:15 11/13/18 21:14 Pantoprazole (Protonix) 40 mg DAILY ORAL 10/15/18 09:00 11/14/18 08:59 10/18/18 08:57 Piperacillin Sod/ Tazobactam Sod 3.375 gm/Sodium Chloride 110 ml @ 27.5 mls/hr Q8HR IVPB 10/15/18 00:00 10/22/18 00:00 10/18/18 05:47 Quetiapine Fumarate (SEROquel) 25 mg Q4H PRN ORAL agitation 10/15/18 13:00 11/14/18 12:59 Sodium Chloride 1,000 ml @ 100 mls/hr Q10H IV 10/14/18 21:15 11/13/18 21:14 10/18/18 05:47 Robbin Flaherty MD Oct 18, 2018 11:12
[2018-10-18 12:00] VITALS: BP 152/63
[2018-10-18 15:29] LABS: HEMATOCRIT 37.4 % (37.0-47.0); HEMOGLOBIN 12.4 G/DL (12.0-16.0); MEAN CORPUSCULAR VOLUME 96 FL (80-99); PLATELET COUNT 181 K/UL (150-450); RED CELL DISTRIBUTION WIDTH 13.6 % (11.6-14.8); WHITE BLOOD COUNT 13.6 K/UL (4.8-10.8)
[2018-10-18 15:38] LABS: ANION GAP 10 mmol/L (5-15); BLOOD UREA NITROGEN 12 mg/dL (7-18); CALCIUM 8.5 MG/DL (8.5-10.1); CARBON DIOXIDE 24 MMOL/L (21-32); CHLORIDE 109 MMOL/L (98-107); CREATININE 0.9 MG/DL (0.55-1.30); POTASSIUM 3.6 MMOL/L (3.5-5.1); SODIUM 143 MMOL/L (136-145)
[2018-10-18 16:00] VITALS: BP 159/67
--- NOTE | 2018-10-18 17:14 | General Progress Note ---
Assessment/Plan Assessment/Plan: IMPRESSION: #. Persistent leukocytosis, does have mostly lymphocytes involved, this would be concerning for potentially early CLL/SLL versus other type of chronic leukemia, wbc improved --> IgG is low 668, IgA low and IgM severly low --> have ordered for flow cytometry to r/o CLL, this is a send out test --> likely of acute leukemia is low, would consider to hold off a bone marrow biopsy --> monitor for fevers, chills, weight loss --> may need ivig once discharged given immunoglobulins compromised #. Severe protein-calorie malnutrition --> monitor calorie count --> monitor po intake and nutrition eval --> consider mirtazapine v marinol #. Elevated LDH #. Dementia with psychosis #. Hypothyroidism #. Hypertension. The timing of this note does not necessarily reflect the time of the patient was seen. Greatly appreciate consultation! Subjective Constitutional: Denies: no symptoms, chills, diaphoresis, fever, malaise, weakness, other HEENT: Denies: no symptoms, eye pain, blurred vision, tearing, double vision, ear pain, ear discharge, nose pain, nose congestion, throat pain, throat swelling, mouth pain, mouth swelling, other Cardiovascular: Denies: no symptoms, chest pain, edema, irregular heart rate, lightheadedness, palpitations, syncope, other Gastrointestinal/Abdominal: Denies: no symptoms, abdomen distended, abdominal pain, black stools, tarry stools, blood in stool, constipated, diarrhea, difficulty swallowing, nausea, poor appetite, poor fluid intake, rectal bleeding , vomiting, other Genitourinary: Denies: no symptoms, burning, discharge, frequency, flank pain, hematuria, incontinence, pain, urgency, other Neurologic/Psychiatric: Denies: no symptoms, anxiety, depressed, emotional problems, headache, numbness, paresthesia, pre-existing deficit, seizure, tingling, tremors, weakness, other Endocrine: Denies: no symptoms, excessive sweating, flushing, intolerance to cold, intolerance to heat, increased hunger, increased thirst, increased urine, unexplained weight gain, unexplained weight loss, other Allergies: Coded Allergies: ASPIRIN (Verified Allergy, Unknown, Altered Mental Status, 07/28/18) Subjective 10/16: patient was cleaned this am, no complaints noted 10/18: no issues to report, no night sweats, no changes in mental status Objective Last 24 Hour Vital Signs Date Time Temp Pulse Resp B/P (MAP) Pulse Ox O2 Delivery O2 Flow Rate FiO2 10/18/18 16:00 98.1 58 16 159/67 (97) 98 10/18/18 12:00 97.8 53 17 152/63 (92) 98 10/18/18 09:00 Room Air 10/18/18 09:00 99/67 10/18/18 08:00 97.4 83 16 99/67 (78) 99 10/18/18 04:00 98.0 86 18 147/86 (106) 10/18/18 00:00 97.3 53 18 133/72 (92) 10/17/18 21:00 Room Air 10/17/18 20:27 98.0 77 16 139/64 (89) Intake and Output 10/17/18 10/18/18 18:59 06:59 Intake Total 1810.0 ml 2067.5 ml Output Total 1700 ml Balance 1810.0 ml 367.5 ml Intake Oral 640 ml IV Total 910.0 ml 527.5 ml Other 900 ml 900 ml Output Urine Total 1700 ml # Voids 3 # Bowel Movements 2 Laboratory Tests 10/18/18 15:00: White Blood Count 13.6H, Red Blood Count 3.90L, Hemoglobin 12.4, Hematocrit 37.4 , Mean Corpuscular Volume 96, Mean Corpuscular Hemoglobin 31.8H, Mean Corpuscular Hemoglobin Concent 33.2, Red Cell Distribution Width 13.6, Platelet Count 181, Mean Platelet Volume 7.8, Neutrophils (%) (Auto) , Lymphocytes (%) ( Auto) , Monocytes (%) (Auto) , Eosinophils (%) (Auto) , Basophils (%) (Auto) , Differential Total Cells Counted 100, Neutrophils % (Manual) 34L, Lymphocytes % (Manual) 61H, Monocytes % (Manual) 4, Eosinophils % (Manual) 0, Basophils % ( Manual) 0, Band Neutrophils 1, Platelet Estimate Adequate, Platelet Morphology Normal, Red Blood Cell Morphology Normal, Sodium Level 143, Potassium Level 3.6 , Chloride Level 109H, Carbon Dioxide Level 24, Anion Gap 10, Blood Urea Nitrogen 12, Creatinine 0.9, Estimat Glomerular Filtration Rate , Glucose Level 104, Calcium Level 8.5, Magnesium Level 1.8 Height (Feet): 5 Height (Inches): 4.00 Weight (Pounds): 129 Objective PHYSICAL EXAMINATION: GENERAL: A well-developed female, comfortable, but confused. VITAL SIGNS: Blood pressure 147/89, pulse 65, respirations 20, sats 100%, temperature 97.5. HEENT: Fairly negative. Extraocular movements are grossly intact. Oropharynx is moist. NECK: Supple. LUNGS: With good air entry. No significant rhonchi. CARDIAC: S1, S2. Regular rate and rhythm without murmurs, rubs, gallops. ABDOMEN: Soft, nontender. No distention. EXTREMITIES: No cyanosis or clubbing. There is degenerative joint disease. NEUROLOGICAL: Grossly nonfocal, but confused. Adis Skinner MD Oct 18, 2018 17:14
--- NOTE | 2018-10-18 19:09 | NUR ---
HAND-OFF: Report given to Simona VALENTIN and endorsed to morning shift to make appointment with Dr. Skinner for IVIG upon d/c @ his clinic.
[2018-10-18 20:00] VITALS: BP 145/57
[2018-10-19] VITALS: BP 156/59
[2018-10-19 04:00] VITALS: BP 152/60
[2018-10-19 06:57] LABS: MEAN CORPUSCULAR VOLUME 97 FL (80-99); PLATELET COUNT 160 K/UL (150-450); RED BLOOD COUNT 4.13 M/UL (4.20-5.40); WHITE BLOOD COUNT 14.7 K/UL (4.8-10.8)
--- NOTE | 2018-10-19 07:41 | General Progress Note ---
Assessment/Plan Assessment/Plan: IMPRESSION: 1. Recurrent leukocytosis 2. Severe protein-calorie malnutrition. 3. Elevated LDH. 4. Dementia with psychosis. 5. Hypothyroidism. 6. Hypertension. PLAN care noted await heme work up and finalization of care same for now monitor counts and labs care noted and reviewed hope to dispo will discuss impression, plan, and exam edited and reviewed in detail care discussed with RN Subjective Allergies: Coded Allergies: ASPIRIN (Verified Allergy, Unknown, Altered Mental Status, 07/28/18) Subjective reviewed care heme noted ID noted possible IVIG wbc better Objective Last 24 Hour Vital Signs Date Time Temp Pulse Resp B/P (MAP) Pulse Ox O2 Delivery O2 Flow Rate FiO2 10/19/18 04:00 96.9 59 18 152/60 (90) 100 10/19/18 00:00 98.1 55 18 156/59 (91) 100 10/18/18 22:52 Room Air 10/18/18 20:00 97.7 60 18 145/57 (86) 98 10/18/18 16:00 98.1 58 16 159/67 (97) 98 10/18/18 12:00 97.8 53 17 152/63 (92) 98 10/18/18 09:00 Room Air 10/18/18 09:00 99/67 10/18/18 08:00 97.4 83 16 99/67 (78) 99 Intake and Output 10/18/18 10/19/18 18:59 06:59 Intake Total 1482.5 ml 600 ml Balance 1482.5 ml 600 ml Intake Oral 500 ml IV Total 982.5 ml 600 ml # Voids 1 5 # Bowel Movements 1 Laboratory Tests 10/18/18 15:00: White Blood Count 13.6H, Red Blood Count 3.90L, Hemoglobin 12.4, Hematocrit 37.4 , Mean Corpuscular Volume 96, Mean Corpuscular Hemoglobin 31.8H, Mean Corpuscular Hemoglobin Concent 33.2, Red Cell Distribution Width 13.6, Platelet Count 181, Mean Platelet Volume 7.8, Neutrophils (%) (Auto) , Lymphocytes (%) ( Auto) , Monocytes (%) (Auto) , Eosinophils (%) (Auto) , Basophils (%) (Auto) , Differential Total Cells Counted 100, Neutrophils % (Manual) 34L, Lymphocytes % (Manual) 61H, Monocytes % (Manual) 4, Eosinophils % (Manual) 0, Basophils % ( Manual) 0, Band Neutrophils 1, Platelet Estimate Adequate, Platelet Morphology Normal, Red Blood Cell Morphology Normal, Sodium Level 143, Potassium Level 3.6 , Chloride Level 109H, Carbon Dioxide Level 24, Anion Gap 10, Blood Urea Nitrogen 12, Creatinine 0.9, Estimat Glomerular Filtration Rate , Glucose Level 104, Calcium Level 8.5, Magnesium Level 1.8 10/19/18 05:25: White Blood Count 14.7H, Red Blood Count 4.13L, Hemoglobin 13.0, Hematocrit 40.0 , Mean Corpuscular Volume 97, Mean Corpuscular Hemoglobin 31.5H, Mean Corpuscular Hemoglobin Concent 32.5, Red Cell Distribution Width 14.0, Platelet Count 160, Mean Platelet Volume 7.8, Neutrophils (%) (Auto) , Lymphocytes (%) ( Auto) , Monocytes (%) (Auto) , Eosinophils (%) (Auto) , Basophils (%) (Auto) , Neutrophils % (Manual) [Pending], Lymphocytes % (Manual) [Pending], Platelet Estimate [Pending], Platelet Morphology [Pending] Height (Feet): 5 Height (Inches): 4.00 Weight (Pounds): 129 Objective GENERAL: A well-developed female, comfortable, at baseline confused. HEENT: Fairly negative. Extraocular movements are grossly intact. Oropharynx is moist. NECK: Supple. LUNGS: With good air entry. No significant rhonchi. CARDIAC: S1, S2. Regular rate and rhythm without murmurs, rubs, gallops. ABDOMEN: Soft, nontender. No distention. EXTREMITIES: No cyanosis or clubbing. There is degenerative joint disease. NEUROLOGICAL: Grossly nonfocal, but confused. Ozzie Renteria MD Oct 19, 2018 07:41
[2018-10-19 08:00] VITALS: BP 145/70
--- NOTE | 2018-10-19 08:00 | NUR ---
NURSE NOTES: Patient is alert to name,respirations unlabored,IV fluids infusing as ordered.Purwick in place and draining clear light yellow urine.Patient ate breakfast.HOB elevated position.Bed alarm is on,call light within reach.
[2018-10-19] MEDS: Losartan 50mg tab ORAL SCH (10:20)
[2018-10-19] MEDS: Ascorbic Acid 500mg tab ORAL SCH (10:20)
[2018-10-19] MEDS: Heparin 5000 units/ml inj SUBQ SCH ×2 (10:21→20:10)
--- NOTE | 2018-10-19 10:42 | Infectious Diseases Prog Note ---
Assessment/Plan Assessment/Plan antibiotics : none A 1. leucocytosis improving 2. ? CLL 3. hypertension 4. dementia P 1. continue off antibiotics Subjective Constitutional: Denies: fever, chills Respiratory: Denies: shortness of breath, dry cough Gastrointestinal/Abdominal: Denies: nausea, vomiting, diarrhea Musculoskeletal: Denies: pain Allergies: Coded Allergies: ASPIRIN (Verified Allergy, Unknown, Altered Mental Status, 07/28/18) Objective Vital Signs Last 24 Hour Vital Signs Date Time Temp Pulse Resp B/P (MAP) Pulse Ox O2 Delivery O2 Flow Rate FiO2 10/19/18 10:20 174/67 10/19/18 04:00 96.9 59 18 152/60 (90) 100 10/19/18 00:00 98.1 55 18 156/59 (91) 100 10/18/18 22:52 Room Air 10/18/18 20:00 97.7 60 18 145/57 (86) 98 10/18/18 16:00 98.1 58 16 159/67 (97) 98 10/18/18 12:00 97.8 53 17 152/63 (92) 98 Height (Feet): 5 Height (Inches): 4.00 Weight (Pounds): 129 Respiratory/Chest: lungs clear Cardiovascular: normal rate, regular rhythm, no gallop/murmur Abdomen: soft, non tender Extremities: no edema Laboratory Tests Test 10/18/18 15:00 10/19/18 05:25 White Blood Count 13.6 K/UL (4.8-10.8) H 14.7 K/UL (4.8-10.8) H Red Blood Count 3.90 M/UL (4.20-5.40) L 4.13 M/UL (4.20-5.40) L Hemoglobin 12.4 G/DL (12.0-16.0) 13.0 G/DL (12.0-16.0) Hematocrit 37.4 % (37.0-47.0) 40.0 % (37.0-47.0) Mean Corpuscular Volume 96 FL (80-99) 97 FL (80-99) Mean Corpuscular Hemoglobin 31.8 PG (27.0-31.0) H 31.5 PG (27.0-31.0) H Mean Corpuscular Hemoglobin Concent 33.2 G/DL (32.0-36.0) 32.5 G/DL (32.0-36.0) Red Cell Distribution Width 13.6 % (11.6-14.8) 14.0 % (11.6-14.8) Platelet Count 181 K/UL (150-450) 160 K/UL (150-450) Mean Platelet Volume 7.8 FL (6.5-10.1) 7.8 FL (6.5-10.1) Neutrophils (%) (Auto) % (45.0-75.0) % (45.0-75.0) Lymphocytes (%) (Auto) % (20.0-45.0) % (20.0-45.0) Monocytes (%) (Auto) % (1.0-10.0) % (1.0-10.0) Eosinophils (%) (Auto) % (0.0-3.0) % (0.0-3.0) Basophils (%) (Auto) % (0.0-2.0) % (0.0-2.0) Differential Total Cells Counted 100 100 Neutrophils % (Manual) 34 % (45-75) L 20 % (45-75) L Lymphocytes % (Manual) 61 % (20-45) H 72 % (20-45) H Monocytes % (Manual) 4 % (1-10) 6 % (1-10) Eosinophils % (Manual) 0 % (0-3) 2 % (0-3) Basophils % (Manual) 0 % (0-2) 0 % (0-2) Band Neutrophils 1 % (0-8) 0 % (0-8) Platelet Estimate Adequate Adequate Platelet Morphology Normal Normal Red Blood Cell Morphology Normal Normal Sodium Level 143 MMOL/L (136-145) Potassium Level 3.6 MMOL/L (3.5-5.1) Chloride Level 109 MMOL/L (98-107) H Carbon Dioxide Level 24 MMOL/L (21-32) Anion Gap 10 mmol/L (5-15) Blood Urea Nitrogen 12 mg/dL (7-18) Creatinine 0.9 MG/DL (0.55-1.30) Estimat Glomerular Filtration Rate mL/min (>60) Glucose Level 104 MG/DL (74-106) Calcium Level 8.5 MG/DL (8.5-10.1) Magnesium Level 1.8 MG/DL (1.8-2.4) Anisocytosis Current Medications Medications (Trade) Dose Ordered Sig/Juan Route PRN Reason Start Time Stop Time Status Last Admin Dose Admin Acetaminophen (Tylenol) 650 mg Q4H PRN ORAL pain and Temp>101F 10/14/18 21:15 11/13/18 21:14 Ascorbic Acid (Vitamin C) 500 mg DAILY ORAL 10/15/18 09:00 11/14/18 08:59 10/19/18 10:20 Haloperidol Lactate (Haldol) 5 mg Q6H PRN IM Agitation 10/15/18 13:15 11/14/18 12:59 10/19/18 03:22 Heparin Sodium (Porcine) (Heparin 5000 units/ml) 5,000 units EVERY 12 HOURS SUBQ 10/15/18 09:00 11/14/18 08:59 10/19/18 10:21 Levothyroxine Sodium (Synthroid) 100 mcg DAILY ORAL 10/15/18 09:00 11/14/18 08:59 10/19/18 10:30 Losartan Potassium (Cozaar) 50 mg DAILY ORAL 10/15/18 09:00 11/14/18 08:59 10/19/18 10:20 Magnesium Hydroxide (Mom) 30 ml DAILYPRN PRN ORAL Constipation 10/14/18 21:15 11/13/18 21:14 Pantoprazole (Protonix) 40 mg DAILY ORAL 10/15/18 09:00 11/14/18 08:59 10/19/18 10:20 Quetiapine Fumarate (SEROquel) 25 mg Q4H PRN ORAL agitation 10/15/18 13:00 11/14/18 12:59 10/19/18 02:25 Sodium Chloride 1,000 ml @ 100 mls/hr Q10H IV 10/14/18 21:15 11/13/18 21:14 10/18/18 20:00 Samantha Velasco MD Oct 19, 2018 10:42
--- NOTE | 2018-10-19 11:52 | NUR ---
RD ASSESSMENT & RECOMMENDATIONS SEE CARE ACTIVITY FOR COMPLETE ASSESSMENT DAILY ESTIMATED NEEDS: Needs based on Cardiac, advanced age, wound/ 50kg 25-35 kcals/kg 3087-8698 total kcals 1.25-1.5 g protein/kg 62-75 g total protein 25-30ml/kcal mL/kg 7792-6898 total fluid mLs NUTRITION DIAGNOSIS: Increased kcal/prot needs R/T wound healing as evidenced by partial thickness pressure injury sacrococcygeal area CURRENT DIET:Soft diet PO DIET RECOMMENDATIONS: Maintain regular/soft diet (texture per [employer]YPE [employer]) ADDITIONAL RECOMMENDATIONS: 1) [employer] eval for appropriate texture (Pt previously on ground texture) 2) Calibrated bed scale wts for accurate CBW 3) For skin integrity: Add MVI x 1, Aneesh 1pkt BID, cont Vit C 4) Monitor for cont good po intake 6) Monitor BGs closely, need for carb controlled diet or hypoglycemics -> h/o DM
[2018-10-19 12:17] VITALS: BP 131/69
--- NOTE | 2018-10-19 15:35 | General Progress Note ---
Assessment/Plan Assessment/Plan: IMPRESSION: #. Persistent leukocytosis, does have mostly lymphocytes involved, this would be concerning for potentially early CLL/SLL versus other type of chronic leukemia, wbc improved --> IgG is low 668, IgA low and IgM severly low--> may need ivig once discharged given immunoglobulins compromised --> have ordered for flow cytometry to r/o CLL, this is a send out test --> likely of acute leukemia is low, would consider to hold off a bone marrow biopsy --> monitor for fevers, chills, weight loss #. Severe protein-calorie malnutrition --> monitor calorie count --> monitor po intake and nutrition eval --> consider mirtazapine v marinol #. Elevated LDH likely effect of turnover of cells #. Dementia with psychosis #. Hypothyroidism #. Hypertension. The timing of this note does not necessarily reflect the time of the patient was seen. Greatly appreciate consultation! Subjective Constitutional: Denies: no symptoms, chills, diaphoresis, fever, malaise, weakness, other HEENT: Denies: no symptoms, eye pain, blurred vision, tearing, double vision, ear pain, ear discharge, nose pain, nose congestion, throat pain, throat swelling, mouth pain, mouth swelling, other Cardiovascular: Denies: no symptoms, chest pain, edema, irregular heart rate, lightheadedness, palpitations, syncope, other Genitourinary: Denies: no symptoms, burning, discharge, frequency, flank pain, hematuria, incontinence, pain, urgency, other Neurologic/Psychiatric: Denies: no symptoms, anxiety, depressed, emotional problems, headache, numbness, paresthesia, pre-existing deficit, seizure, tingling, tremors, weakness, other Hematologic/Lymphatic: Denies: no symptoms, anemia, easy bleeding, easy bruising, other Allergies: Coded Allergies: ASPIRIN (Verified Allergy, Unknown, Altered Mental Status, 07/28/18) Subjective 10/16: patient was cleaned this am, no complaints noted 10/18: no issues to report, no night sweats, no changes in mental status 10/19: awaiting results of flow still, appears wbc has stabilized Objective Last 24 Hour Vital Signs Date Time Temp Pulse Resp B/P (MAP) Pulse Ox O2 Delivery O2 Flow Rate FiO2 10/19/18 12:17 97.9 76 19 131/69 (89) 97 10/19/18 10:20 174/67 10/19/18 09:00 Room Air 10/19/18 08:00 98.0 61 19 145/70 (95) 96 10/19/18 04:00 96.9 59 18 152/60 (90) 100 10/19/18 00:00 98.1 55 18 156/59 (91) 100 10/18/18 22:52 Room Air 10/18/18 20:00 97.7 60 18 145/57 (86) 98 10/18/18 16:00 98.1 58 16 159/67 (97) 98 Intake and Output 10/18/18 10/19/18 19:00 07:00 Intake Total 1482.5 ml 600 ml Balance 1482.5 ml 600 ml Intake Oral 500 ml IV Total 982.5 ml 600 ml # Voids 1 5 # Bowel Movements 1 Laboratory Tests 10/19/18 05:25: White Blood Count 14.7H, Red Blood Count 4.13L, Hemoglobin 13.0, Hematocrit 40.0 , Mean Corpuscular Volume 97, Mean Corpuscular Hemoglobin 31.5H, Mean Corpuscular Hemoglobin Concent 32.5, Red Cell Distribution Width 14.0, Platelet Count 160, Mean Platelet Volume 7.8, Neutrophils (%) (Auto) , Lymphocytes (%) ( Auto) , Monocytes (%) (Auto) , Eosinophils (%) (Auto) , Basophils (%) (Auto) , Differential Total Cells Counted 100, Neutrophils % (Manual) 20L, Lymphocytes % (Manual) 72H, Monocytes % (Manual) 6, Eosinophils % (Manual) 2, Basophils % ( Manual) 0, Band Neutrophils 0, Platelet Estimate Adequate, Platelet Morphology Normal, Red Blood Cell Morphology Normal, Anisocytosis Height (Feet): 5 Height (Inches): 4.00 Weight (Pounds): 129 Objective PHYSICAL EXAMINATION: GENERAL: A well-developed female, comfortable, but confused. VITAL SIGNS: Blood pressure 147/89, pulse 65, respirations 20, sats 100%, temperature 97.5. HEENT: Fairly negative. Extraocular movements are grossly intact. Oropharynx is moist. NECK: Supple. LUNGS: With good air entry. No significant rhonchi. CARDIAC: S1, S2. Regular rate and rhythm without murmurs, rubs, gallops. ABDOMEN: Soft, nontender. No distention. EXTREMITIES: No cyanosis or clubbing. There is degenerative joint disease. NEUROLOGICAL: Grossly nonfocal, but confused. Adis Skinner MD Oct 19, 2018 15:35
[2018-10-19 16:00] VITALS: BP 129/76
--- NOTE | 2018-10-19 18:30 | NUR ---
NURSE NOTES: Patient resting,iv continues to infuse as ordered.patient is calm and cooperative.Bed alarm is on,call light within reach.
--- NOTE | 2018-10-19 19:41 | NUR ---
CASE MANAGEMENT: REVIEW SI: LEUKOCYTOSIS T 96.9 HR 55 RR 18 BP 156/59 SAT 96% ROOM AIR WBC 14.7 IS: COZAAR PO QD HEPARIN SQ Q12HR NS IVF @ 100ML/HR MED/SURG STATUS DCP: PATIENT IS FROM [facility]
[2018-10-19 20:00] VITALS: BP 141/80
--- NOTE | 2018-10-19 22:56 | Psych Consult Progress Note ---
Psychiatry Progress Note Psychiatry Progress Note Medications Current Medications Medications (Trade) Dose Ordered Sig/Juan Route PRN Reason Start Time Stop Time Status Last Admin Dose Admin Acetaminophen (Tylenol) 650 mg Q4H PRN ORAL pain and Temp>101F 10/14/18 21:15 11/13/18 21:14 Ascorbic Acid (Vitamin C) 500 mg DAILY ORAL 10/15/18 09:00 11/14/18 08:59 10/19/18 10:20 Haloperidol Lactate (Haldol) 5 mg Q6H PRN IM Agitation 10/15/18 13:15 11/14/18 12:59 10/19/18 03:22 Heparin Sodium (Porcine) (Heparin 5000 units/ml) 5,000 units EVERY 12 HOURS SUBQ 10/15/18 09:00 11/14/18 08:59 10/19/18 20:10 Levothyroxine Sodium (Synthroid) 100 mcg DAILY ORAL 10/15/18 09:00 11/14/18 08:59 10/19/18 10:30 Losartan Potassium (Cozaar) 50 mg DAILY ORAL 10/15/18 09:00 11/14/18 08:59 10/19/18 10:20 Magnesium Hydroxide (Mom) 30 ml DAILYPRN PRN ORAL Constipation 10/14/18 21:15 11/13/18 21:14 Pantoprazole (Protonix) 40 mg DAILY ORAL 10/15/18 09:00 11/14/18 08:59 10/19/18 10:20 Quetiapine Fumarate (SEROquel) 25 mg Q4H PRN ORAL agitation 10/15/18 13:00 11/14/18 12:59 10/19/18 02:25 Sodium Chloride 1,000 ml @ 100 mls/hr Q10H IV 10/14/18 21:15 11/13/18 21:14 10/19/18 21:22 Neurological/Psychiatric: Reports: anxiety, depressed, emotional problems, weakness Allergies: Coded Allergies: ASPIRIN (Verified Allergy, Unknown, Altered Mental Status, 07/28/18) Objective Data Height (Feet): 5 Height (Inches): 4.00 Weight (Pounds): 129 General Appearance: alert, confused, agitated Appearance: no abnormalities noted Mental Status Exam - Affect: flat Mental Status Exam - Mood: irritable, angry, anxious, agitated Mental Status Exam - Thought P: tangential, confusion, disorganized Mental Status Exam - Suicidal: not present Assessment/Plan Problem List: (1) Dementia with behavioral disturbance ICD Codes: F03.91 - Unspecified dementia with behavioral disturbance SNOMED: 1076903800024 (2) Acute metabolic encephalopathy ICD Codes: G93.41 - Metabolic encephalopathy SNOMED: 07113564, 342280641 Status: unchanged Assessment/Plan: seroquel po prn haldol prn provided ro/Hubert Suárez MD Oct 19, 2018 22:56
--- NOTE | 2018-10-19 22:56 | Psych Consult Progress Note ---
Psychiatry Progress Note Psychiatry Progress Note Subjective 10/18 Medications Current Medications Medications (Trade) Dose Ordered Sig/Juan Route PRN Reason Start Time Stop Time Status Last Admin Dose Admin Acetaminophen (Tylenol) 650 mg Q4H PRN ORAL pain and Temp>101F 10/14/18 21:15 11/13/18 21:14 Ascorbic Acid (Vitamin C) 500 mg DAILY ORAL 10/15/18 09:00 11/14/18 08:59 10/19/18 10:20 Haloperidol Lactate (Haldol) 5 mg Q6H PRN IM Agitation 10/15/18 13:15 11/14/18 12:59 10/19/18 03:22 Heparin Sodium (Porcine) (Heparin 5000 units/ml) 5,000 units EVERY 12 HOURS SUBQ 10/15/18 09:00 11/14/18 08:59 10/19/18 20:10 Levothyroxine Sodium (Synthroid) 100 mcg DAILY ORAL 10/15/18 09:00 11/14/18 08:59 10/19/18 10:30 Losartan Potassium (Cozaar) 50 mg DAILY ORAL 10/15/18 09:00 11/14/18 08:59 10/19/18 10:20 Magnesium Hydroxide (Mom) 30 ml DAILYPRN PRN ORAL Constipation 10/14/18 21:15 11/13/18 21:14 Pantoprazole (Protonix) 40 mg DAILY ORAL 10/15/18 09:00 11/14/18 08:59 10/19/18 10:20 Quetiapine Fumarate (SEROquel) 25 mg Q4H PRN ORAL agitation 10/15/18 13:00 11/14/18 12:59 10/19/18 02:25 Sodium Chloride 1,000 ml @ 100 mls/hr Q10H IV 10/14/18 21:15 11/13/18 21:14 10/19/18 21:22 Neurological/Psychiatric: Reports: anxiety, depressed, emotional problems Allergies: Coded Allergies: ASPIRIN (Verified Allergy, Unknown, Altered Mental Status, 07/28/18) Objective Data Height (Feet): 5 Height (Inches): 4.00 Weight (Pounds): 129 General Appearance: alert, confused, agitated Appearance: no abnormalities noted Behavior Mannerisms: poor eye contact Mental Status Exam - Affect: blunted Mental Status Exam - Mood: agitated Mental Status Exam - Thought P: tangential, confusion, disorganized Mental Status Exam - Suicidal: not present Assessment/Plan Problem List: (1) Dementia with behavioral disturbance ICD Codes: F03.91 - Unspecified dementia with behavioral disturbance SNOMED: 7822093868354 (2) Acute metabolic encephalopathy ICD Codes: G93.41 - Metabolic encephalopathy SNOMED: 68251621, [id number] Status: unchanged Assessment/Plan: seroquel po prn haldol prn provided /Hubert Suárez MD Oct 19, 2018 22:56
--- NOTE | 2018-10-19 23:13 | NUR ---
HAND-OFF: Report given to BARBIE Medley.
[2018-10-20] VITALS: BP 158/73
[2018-10-20 04:18] VITALS: BP 145/70
--- NOTE | 2018-10-20 06:55 | NUR ---
HAND-OFF: Report given to Janette VALENTIN.
--- NOTE | 2018-10-20 07:52 | NUR ---
NURSE NOTES: Patient is alert to name,confusion noted,reorient patient.IV fluids infusing as ordered,patient has external catheter,clear yellow urine noted.Breakfast at bedside will assist patient.Bed alarm is on,call light within reach.
[2018-10-20 08:31] VITALS: BP 141/50
--- NOTE | 2018-10-20 08:32 | General Progress Note ---
Assessment/Plan Status: unchanged Assessment/Plan: IMPRESSION: 1. Recurrent leukocytosis 2. Severe protein-calorie malnutrition. 3. Elevated LDH. 4. Dementia with psychosis. 5. Hypothyroidism. 6. Hypertension. PLAN care noted await heme work up and finalization of care- likely will take time to return same for now monitor counts and labs care noted and reviewed hope to dispo today impression, plan, and exam edited and reviewed in detail care discussed with RN Subjective Allergies: Coded Allergies: ASPIRIN (Verified Allergy, Unknown, Altered Mental Status, 07/28/18) Subjective reviewed care heme noted ID noted- off antibiotics possible IVIG wbc better nontoxic Objective Last 24 Hour Vital Signs Date Time Temp Pulse Resp B/P (MAP) Pulse Ox O2 Delivery O2 Flow Rate FiO2 10/20/18 04:18 98.9 64 15 145/70 (95) 10/20/18 00:00 98.5 56 17 158/73 (101) 10/19/18 22:28 Room Air 10/19/18 20:00 98.3 59 18 141/80 (100) 98 10/19/18 16:00 98.1 68 18 129/76 (93) 98 10/19/18 12:17 97.9 76 19 131/69 (89) 97 10/19/18 10:20 174/67 10/19/18 09:00 Room Air Intake and Output 10/19/18 10/20/18 18:59 06:59 Intake Total 1100 ml 1300 ml Output Total 2000 ml Balance 1100 ml -700 ml Intake Oral 500 ml IV Total 1100 ml 800 ml Output Urine Total 2000 ml # Voids 5 Height (Feet): 5 Height (Inches): 4.00 Weight (Pounds): 129 Objective GENERAL: A well-developed female, comfortable, at baseline confused. HEENT: Fairly negative. Extraocular movements are grossly intact. Oropharynx is moist. NECK: Supple. LUNGS: With good air entry. No significant rhonchi. CARDIAC: S1, S2. Regular rate and rhythm without murmurs, rubs, gallops. ABDOMEN: Soft, nontender. No distention. EXTREMITIES: No cyanosis or clubbing. There is degenerative joint disease. NEUROLOGICAL: Grossly nonfocal, but confused. Ozzie Renteria MD Oct 20, 2018 08:32
--- NOTE | 2018-10-20 10:25 | Infectious Diseases Prog Note ---
Assessment/Plan Assessment/Plan antibiotics : none A 1. leucocytosis 2. ? CLL 3. hypertension 4. dementia P 1. continue off antibiotics Subjective ROS Limited/Unobtainable: Yes Allergies: Coded Allergies: ASPIRIN (Verified Allergy, Unknown, Altered Mental Status, 07/28/18) Objective Vital Signs Last 24 Hour Vital Signs Date Time Temp Pulse Resp B/P (MAP) Pulse Ox O2 Delivery O2 Flow Rate FiO2 10/20/18 08:31 97.3 62 18 141/50 (80) 96 10/20/18 04:18 98.9 64 15 145/70 (95) 10/20/18 00:00 98.5 56 17 158/73 (101) 10/19/18 22:28 Room Air 10/19/18 20:00 98.3 59 18 141/80 (100) 98 10/19/18 16:00 98.1 68 18 129/76 (93) 98 10/19/18 12:17 97.9 76 19 131/69 (89) 97 Height (Feet): 5 Height (Inches): 4.00 Weight (Pounds): 129 Respiratory/Chest: lungs clear Cardiovascular: normal rate, regular rhythm, no gallop/murmur Abdomen: soft, non tender Extremities: no edema Current Medications Medications (Trade) Dose Ordered Sig/Juan Route PRN Reason Start Time Stop Time Status Last Admin Dose Admin Acetaminophen (Tylenol) 650 mg Q4H PRN ORAL pain and Temp>101F 10/14/18 21:15 11/13/18 21:14 Ascorbic Acid (Vitamin C) 500 mg DAILY ORAL 10/15/18 09:00 11/14/18 08:59 10/19/18 10:20 Haloperidol Lactate (Haldol) 5 mg Q6H PRN IM Agitation 10/15/18 13:15 11/14/18 12:59 10/19/18 03:22 Heparin Sodium (Porcine) (Heparin 5000 units/ml) 5,000 units EVERY 12 HOURS SUBQ 10/15/18 09:00 11/14/18 08:59 10/19/18 20:10 Levothyroxine Sodium (Synthroid) 100 mcg DAILY ORAL 10/15/18 09:00 11/14/18 08:59 10/19/18 10:30 Losartan Potassium (Cozaar) 50 mg DAILY ORAL 10/15/18 09:00 11/14/18 08:59 10/19/18 10:20 Magnesium Hydroxide (Mom) 30 ml DAILYPRN PRN ORAL Constipation 10/14/18 21:15 11/13/18 21:14 Pantoprazole (Protonix) 40 mg DAILY ORAL 10/15/18 09:00 11/14/18 08:59 10/19/18 10:20 Quetiapine Fumarate (SEROquel) 25 mg Q4H PRN ORAL agitation 10/15/18 13:00 11/14/18 12:59 10/19/18 02:25 Sodium Chloride 1,000 ml @ 100 mls/hr Q10H IV 10/14/18 21:15 11/13/18 21:14 10/19/18 21:22 Samantha Velasco MD Oct 20, 2018 10:25
[2018-10-20 10:52] VITALS: BP 122/63
[2018-10-20] MEDS: Losartan 50mg tab ORAL SCH (10:52)
[2018-10-20] MEDS: Ascorbic Acid 500mg tab ORAL SCH (10:55)
[2018-10-20] MEDS: Heparin 5000 units/ml inj SUBQ SCH (11:03)
--- NOTE | 2018-10-20 13:48 | NUR ---
DISCHARGE PLANNING DISCHARGE ORDER NOTED Patient has been accepted back to; [facility] [address] [place] [address] Bed:236-A Skilled for Nurse to Nurse report [facility] ETA for transportation: 14:45 Patient is in agreement with transfer.
[2018-10-20] MEDS ORDERED: ACETAMINOPHEN325 M1 ORAL (15:47)
--- NOTE | 2018-10-20 16:33 | NUR ---
NURSE NOTES: Patient discharge to [facility],IV removed,patient has personal belongings,report given to Marie COTA,patient transported by Line [employer].
--- NOTE | 2018-10-20 16:48 | General Progress Note ---
Assessment/Plan Status: unchanged Assessment/Plan: IMPRESSION: #. Persistent leukocytosis, does have mostly lymphocytes involved, this would be concerning for potentially early CLL/SLL versus other type of chronic leukemia, wbc improved --> IgG is low 668, IgA low and IgM severly low--> may need ivig once discharged given immunoglobulins compromised --> have ordered for flow cytometry to r/o CLL, this is a send out test --> likely of acute leukemia is low, would consider to hold off a bone marrow biopsy --> monitor for fevers, chills, weight loss as well --> set appt as outpatient #. Severe protein-calorie malnutrition --> monitor calorie count --> monitor po intake and nutrition eval --> consider mirtazapine v marinol #. Elevated LDH likely effect of turnover of cells #. Dementia with psychosis #. Hypothyroidism #. Hypertension. The timing of this note does not necessarily reflect the time of the patient was seen. Greatly appreciate consultation! Subjective Constitutional: Denies: no symptoms, chills, diaphoresis, fever, malaise, weakness, other HEENT: Denies: no symptoms, eye pain, blurred vision, tearing, double vision, ear pain, ear discharge, nose pain, nose congestion, throat pain, throat swelling, mouth pain, mouth swelling, other Cardiovascular: Denies: no symptoms, chest pain, edema, irregular heart rate, lightheadedness, palpitations, syncope, other Genitourinary: Denies: no symptoms, burning, discharge, frequency, flank pain, hematuria, incontinence, pain, urgency, other Neurologic/Psychiatric: Denies: no symptoms, anxiety, depressed, emotional problems, headache, numbness, paresthesia, pre-existing deficit, seizure, tingling, tremors, weakness, other Endocrine: Denies: no symptoms, excessive sweating, flushing, intolerance to cold, intolerance to heat, increased hunger, increased thirst, increased urine, unexplained weight gain, unexplained weight loss, other Allergies: Coded Allergies: ASPIRIN (Verified Allergy, Unknown, Altered Mental Status, 07/28/18) Subjective 10/16: patient was cleaned this am, no complaints noted 10/18: no issues to report, no night sweats, no changes in mental status 10/19: awaiting results of flow still, appears wbc has stabilized 10/20: no events to report, to be discharged today back to [facility], wbc relatively stable Objective Last 24 Hour Vital Signs Date Time Temp Pulse Resp B/P (MAP) Pulse Ox O2 Delivery O2 Flow Rate FiO2 10/20/18 10:52 122/63 10/20/18 09:00 Room Air 10/20/18 08:31 97.3 62 18 141/50 (80) 96 10/20/18 04:18 98.9 64 15 145/70 (95) 10/20/18 00:00 98.5 56 17 158/73 (101) 10/19/18 22:28 Room Air 10/19/18 20:00 98.3 59 18 141/80 (100) 98 Intake and Output 10/19/18 10/20/18 19:00 07:00 Intake Total 1200 ml 1200 ml Output Total 2000 ml Balance 1200 ml -800 ml Intake Oral 500 ml IV Total 1200 ml 700 ml Output Urine Total 2000 ml # Voids 5 Height (Feet): 5 Height (Inches): 4.00 Weight (Pounds): 129 Objective PHYSICAL EXAMINATION: GENERAL: A well-developed female, comfortable, but confused. VITAL SIGNS: Blood pressure 147/89, pulse 65, respirations 20, sats 100%, temperature 97.5. HEENT: Fairly negative. Extraocular movements are grossly intact. Oropharynx is moist. NECK: Supple. LUNGS: With good air entry. No significant rhonchi. CARDIAC: S1, S2. Regular rate and rhythm without murmurs, rubs, gallops. ABDOMEN: Soft, nontender. No distention. EXTREMITIES: No cyanosis or clubbing. There is degenerative joint disease. NEUROLOGICAL: Grossly nonfocal, but confused. Adis Skinner MD Oct 20, 2018 16:48
--- NOTE | 2018-10-20 22:12 | Psych Consult Progress Note ---
Psychiatry Progress Note Psychiatry Progress Note Neurological/Psychiatric: Reports: anxiety, depressed, emotional problems Allergies: Coded Allergies: ASPIRIN (Verified Allergy, Unknown, Altered Mental Status, 07/28/18) Objective Data Height (Feet): 5 Height (Inches): 4.00 Weight (Pounds): 129 General Appearance: alert, confused, moderate distress, agitated Appearance: disheveled Behavior Mannerisms: poor eye contact Mental Status Exam - Affect: constricted Mental Status Exam - Mood: irritable, anxious, agitated Speech: dysarthric Mental Status Exam - Thought P: tangential, confusion, disorganized Mental Status Exam - Thought C: delusions (specify) Perceptual Disturbances: hallucinations Mental Status Exam - Suicidal: not present Assessment/Plan Problem List: (1) Dementia with behavioral disturbance ICD Codes: F03.91 - Unspecified dementia with behavioral disturbance SNOMED: 8977845303690 (2) Acute metabolic encephalopathy ICD Codes: G93.41 - Metabolic encephalopathy SNOMED: 53545617, 574705813 Status: unchanged Assessment/Plan: seroquel po prn haldol prn provided /Hubert Suárez MD Oct 20, 2018 22:12
--- NOTE | 2018-10-21 10:24 | Discharge Summary ---
Discharge Summary Discharge Summary _ DATE OF ADMISSION: 10/14/2018 DATE OF DISCHARGE: 10/20/2018 DISCHARGED BY: Dr. Renteria REASON FOR ADMISSION: 87 years old female with past medical history of hypertension, diabetes mellitus type 2, hypothyroidism, resident of [facility] facility, was sent for evaluation due to recurrent leukocytosis. Upon evaluation patient was bradycardic in 50th , no fever. Laboratory work-up revealed WBC 24.2, stable hemoglobin and hematocrit. Stable renal parameters. Lactic acid 2.5. Albumin 2.7. Urinalysis revealed +1 leukocyte esterase and few bacteria. EKG revealed sinus bradycardia, no acute ischemic changes. Chest x-ray demonstrated cardiomegaly, possible small pleural effusion. CT of the abdomen and pelvis revealed fecal impaction, questionable gastric antral wall thickening, no definite acute process otherwise. In the emergency department patient started on the IV fluids , pancultured , started on empiric antibiotic . Hemodynamic status was stable. Patient remained afebrile. Patient subsequently admitted for further management. CONSULTANTS: ID specialist Dr. Velasco nude model/oncologist Dr. Skinner psychiatrist [facility]: Patient admitted and started on empiric antibiotic. ID specialist closely followed. Blood culture were negative. Leukocytosis trending down. Patient remained afebrile. No evidence of infection. Antibiotics discontinued. Online Merchandising Coordinator/oncologist followed. Per nude model, patient had persistent leukocytosis with mostly lymphocytes , concerning for potentially early chronic lymphocytic leukemia versus small lymphocytic lymphoma versus other type of chronic leukemia. WBC count improved. Prior to discharge WBC 14.7. Serum immunoglobulin revealed low IgG and severely decreased IgM. Patient may need IV immunoglobulin upon discharge. Flow cytometry was ordered to rule out chronic lymphocytic leukemia. No results available at time of this dictation, this is a send out test. Likelihood of acute leukemia was low as per per nude model, and he recommended to hold off on bone marrow biopsy at this time. Monitor for fevers, chills, weight loss and follow-up with nude model as outpatient. Nutritional supplements implemented in plan of care. Oral intake and calorie counts were closely monitored. Appetite stimulant was recommended to consider. Elevated LDH was likely due to effect of turnover of cells. GI prophylaxis provided. Blood pressure was managed with Cozaar and remained stable. Levothyroxine was continued. Blood sugar was closely monitored and remained stable. Psychiatrist followed. Per psychiatrist patient had dementia with behavioral disturbances and acute metabolic encephalopathy. Psychiatric medication regimen was optimized as per psychiatrist recommendation. Reality orientation and supportive therapy provided. Patient clinically stabilized and was transferred back to [facility] facility. FINAL DIAGNOSES: Recurrent leukocytosis Probably chronic lymphocytic leukemia versus other type of chronic leukemia Severe protein calorie malnutrition Dementia with psychosis Hypertension Hypothyroidism Elevated LDH Acute metabolic encephalopathy Dementia with behavioral disturbances DISCHARGE MEDICATIONS: See Medication Reconciliation list. DISCHARGE INSTRUCTIONS: Patient was discharged to the [facility] facility. Follow up with medical doctor at the facility. Outpatient follow-up with nude model . Follow-up with flow cytometry results. I have been assigned to dictate discharge summary for this account. I was not involved in the patient's management. Rossi Blanco NP October 21, 2018 10:24
== END 2018-10-20 16:05 | DRG 840 ==
LOC: EDBD 13:42 → EMR 15:02 → EDBEDREQ 17:16 → 4E 17:25 → EDBEDREQ 19:02
DX: C91.10 Chronic lymphocytic leukemia of B-cell type not having achieved remission (principal); E43 Unspecified severe protein-calorie malnutrition; G93.41 Metabolic encephalopathy; F03.91 Unspecified dementia, unspecified severity, with behavioral disturbance; C95.10 Chronic leukemia of unspecified cell type not having achieved remission; E03.9 Hypothyroidism, unspecified; I10 Essential (primary) hypertension; E11.9 Type 2 diabetes mellitus without complications; Z66 Do not resuscitate; Z79.82 Long term (current) use of aspirin; R74.0 Nonspecific elevation of levels of transaminase and lactic acid dehydrogenase [LDH]; R21 Rash and other nonspecific skin eruption; Z68.20 Body mass index [BMI] 20.0-20.9, adult
CPT/HCPCS: 36415; 71045; 74177; 80048; 80053; 81003; 82784; 83605; 83615; 83735; 85007; 85025; 87040; 87081; 93005; 96360; 96361; 99285

== ENCOUNTER 2019-08-25 05:27 | Inpatient (IN) | payer MEDICARE, OTHER ==
[~2019-08-25] VITALS: Ht 162.6 cm; Wt 56.3 kg
[~2019-08-25 05:27] MED LIST changes: +ACETAMINOPHEN325 M1 GT; +DIPHENHYDRAMINE25 M1 IVP; +LEVOTHYROXINE125 MCG GT; -LEVOTHYROXINE125 MCG ORAL; +LOSARTAN POTASS50 MG GT; -LOSARTAN POTASS50 MG ORAL; +QUETIAPINE FUMA50 MG ORAL; +ROCEPHIN 11 GM/50 ML
--- NOTE | 2019-08-25 05:37 | Emergency Room Report ---
History of Present Illness General Chief Complaint: Altered Level of Consciousness Source: Medical Record Present Illness HPI Is an 88-year-old [facility] patient who is a DNR. She presents with altered mental status. Unable get any history from her because of her condition. She has a history of pneumonia, UTI, hypertension, dementia. Per [facility], mental status is decreased. No fever. No nausea no vomiting. No cough or congestion. Onset tonight. Allergies: Coded Allergies: ASPIRIN (Verified Allergy, Unknown, Altered Mental Status, 07/28/18) Patient History Past Medical History: see triage record, old chart reviewed Past Surgical History: other - G tube Pertinent Family History: none Social History: Denies: smoking Last Menstrual Period: n/a Now: No Immunizations: other Reviewed Nursing Documentation: PMH: Agreed; PSxH: Agreed Nursing Documentation-PMH Past Medical History: No History, Except For Hx Cardiac Problems: Yes Hx Hypertension: Yes Hx Diabetes: Yes - DM II Hx Cancer: No Hx Neurological Problems: Yes - difficulty walking, encephalopathy Review of Systems Constitutional: Reports: fever, weakness All Other Systems: limited - Secondary to her condition Physical Exam Vital Signs Date Time Temp Pulse Resp B/P (MAP) Pulse Ox O2 Delivery O2 Flow Rate FiO2 08/25/19 05:28 102.0 72 16 89/46 (60) 95 Room Air Vitals with fever and hypotension Sp02 EP Interpretation: reviewed, normal General Appearance: mild distress, lethargic Head: normocephalic, atraumatic Eyes: bilateral eye PERRL, bilateral eye EOMI ENT: hearing grossly normal, dry mucus membranes Neck: full range of motion, supple, no meningismus Respiratory: chest non-tender, lungs clear, normal breath sounds Cardiovascular #1: regular rate, rhythm, no murmur Gastrointestinal: normal bowel sounds, non tender, no mass, no organomegaly, no bruit, non-distended Musculoskeletal: back normal, other - Contracted Psychiatric: mood/affect normal Procedures Critical Care Time Critical Care Time Critical care is mandated in this patient who presented with sepsis. Patient require my urgent intervention to attenuate the risks of metabolic collapse which may lead to cardiovascular collapse and . Critical care time is 35 minutes excluding any reportable procedure. Critical care time included evaluation, multiple reevaluation, looking at old charts, interpreting laboratory and diagnostic data, discussing case with patient and family and consultants, and charting. Medical Decision Making Diagnostic Impression: Primary Impression: Sepsis Qualified Codes: A41.9 - Sepsis, unspecified organism; R65.20 - Severe sepsis without septic shock; N17.9 - Acute kidney failure, unspecified Additional Impressions: Acute metabolic encephalopathy ACS (acute coronary syndrome) UTI (urinary tract infection) Qualified Codes: N30.00 - Acute cystitis without hematuria Acute prerenal azotemia ER Course This is an [facility] who presents with fever. She has sepsis. Urinalysis still pending. That is the most likely source since urine is cloudy. She grew out Proteus in the past. Sensitive to Zosyn and cefepime. Chest x-ray unremarkable. Lungs are clear. She is not hypoxic. She responded to IV fluid. Blood pressure much improved. Her intermediate troponin is probably secondary to demand ischemia secondary to sepsis. I discussed the case with Dr. Renteria who accepted pt for admission. EKG Diagnostic Results Rate: normal Rhythm: NSR ST Segments: no acute changes Rhythm Strip Diag. Results EP Interpretation: yes Rate: 97 Rhythm: NSR, no PVC's, no ectopy Chest X-Ray Diagnostic Results Chest X-Ray Diagnostic Results : Chest X-Ray Ordered: Yes # of Views/Limited/Complete: 1 View Indication: Other EP Interpretation: Yes Interpretation: no consolidation, no effusion, no pneumothorax, no acute cardiopulmonary disease Impression: No acute disease Electronically Signed by: Guero Saldaña MD Last Vital Signs Date Time Temp Pulse Resp B/P (MAP) Pulse Ox O2 Delivery O2 Flow Rate FiO2 08/25/19 05:28 102.0 72 16 89/46 (60) 95 Room Air Status: improved Disposition: ADMITTED INPATIENT Condition: Serious Guero Saldaña MD Aug 25, 2019 05:37
[2019-08-25 05:45] VITALS: BP 89/46
[2019-08-25] MEDS ORDERED: Acetaminophen 650 MG SUPP RECTAL ONE (05:45)
[2019-08-25] MEDS ORDERED: HUMULIN R100 UNIT/1 SUBQ (05:45)
[2019-08-25] MEDS ORDERED: HYDRALAZINE HCL25 M1 GT (05:45)
[2019-08-25] MEDS ORDERED: LANSOPRAZOLE15 MG GT (05:45)
[2019-08-25 05:51] LABS: BASOPHILS % (AUTO) 1.3 % (0.0-2.0); EOSINOPHILS % (AUTO) 0.1 % (0.0-3.0); HEMATOCRIT 37.4 % (37.0-47.0); HEMOGLOBIN 13.1 G/DL (12.0-16.0); LYMPHOCYTES % (AUTO) 49.6 % (20.0-45.0); MEAN CORPUSCULAR VOLUME 96 FL (80-99); MONOCYTES % (AUTO) 1.7 % (1.0-10.0); NEUTROPHILS % (AUTO) 47.4 % (45.0-75.0); PLATELET COUNT 128 K/UL (150-450); RED CELL DISTRIBUTION WIDTH 13.2 % (11.6-14.8)
[2019-08-25 06:04] LABS: ANION GAP 10 mmol/L (5-15); BLOOD UREA NITROGEN 43 mg/dL (7-18); CALCIUM 8.1 MG/DL (8.5-10.1); CARBON DIOXIDE 24 MMOL/L (21-32); CHLORIDE 102 MMOL/L (98-107); CREATININE 0.9 MG/DL (0.55-1.30); POTASSIUM 4.3 MMOL/L (3.5-5.1); SODIUM 136 MMOL/L (136-145)
[2019-08-25 06:15] LABS: BILIRUBIN, URINE NEGATIVE (NEGATIVE); COLOR,URINE YELLOW; GLUCOSE, URINE (UA) NEGATIVE (NEGATIVE); KETONES,URINE NEGATIVE (NEGATIVE); LEUKOCYTE ESTERASE ,URINE 3+ (NEGATIVE); NITRITE,URINE POSITIVE (NEGATIVE); PH,URINE 8 (4.5-8.0); PROTEIN,URINE 2+ (NEGATIVE); UROBILINOGEN,URINE NORMAL MG/DL (0.0-1.0)
[2019-08-25] MEDS ORDERED: Cefepime HCl 1 GM in D5W 55 ML IVPB ONE (06:15)
[2019-08-25 06:17] LABS: APPEARANCE,URINE CLOUDY
[2019-08-25 06:27] LABS: ALANINE AMINOTRANSFERASE 187 U/L (12-78); ALBUMIN 2.4 G/DL (3.4-5.0); ALBUMIN/GLOBULIN RATIO 0.8 (1.0-2.7); ALKALINE PHOSPHATASE 142 U/L (46-116); ASPARTATE AMINO TRANSFERASE 190 U/L (15-37); BILIRUBIN,TOTAL 0.3 MG/DL (0.2-1.0); CKMB < 0.5 NG/ML (0.0-3.6); CREATINE KINASE 24 U/L (26-308)
[2019-08-25 07:10] VITALS: BP 100/44
[2019-08-25 08:17] VITALS: BP 109/48
[2019-08-25] MEDS ORDERED: Pantoprazole Inj IVP SCH (11:15)
[2019-08-25 12:00] VITALS: BP 111/71
--- NOTE | 2019-08-25 12:18 | Diagnostic Imaging Report ---
Indication: Dyspnea Comparison: 10/14/2018 A single view chest radiograph was obtained. Findings: There is blunting of the left costophrenic angle. The heart is enlarged. Interstitial markings appear prominent but this was seen previously also. Bones are osteopenic. There is a scoliosis of the thoracic spine. IMPRESSION: Suspected left pleural effusion. Underlying infiltrate could be present as well. Prominence of the pulmonary interstitial nonspecific unchanged presumably chronic. Scoliosis
[2019-08-25] MEDS: Vancomycin 750 MG in NS 275 ML IVPB SCH (13:45)
[2019-08-25] MEDS: Piperacillin/Tazobactam 3.375 GM in NS 110 ML IVPB SCH ×2 (13:45→21:35)
[2019-08-25] MEDS: HydrALAZINE 25mg tab ORAL SCH ×2 (13:50→21:35)
[2019-08-25 16:00] VITALS: BP 115/47
[2019-08-25] MEDS: NovoLOG Insulin Flexpen SUBQ SCH ×2 (16:30→20:17)
--- NOTE | 2019-08-25 19:45 | History and Physical Report ---
DATE OF ADMISSION: 08/25/2019 REASON FOR ADMISSION: Probable sepsis. HISTORY OF PRESENT ILLNESS: This is an 88-year-old female who is a Do Not Resuscitate presented with change in mental status. The patient was brought in to the emergency room, was noted to have leukocytosis and also lactic acidemia. The patient has azotemia and elevated liver enzymes. The patient also with mildly elevated troponin as well. The patient was seen and evaluated. Started on antibiotics. Called Infectious Disease to evaluate further. The patient with suspected left-sided pleural effusion. Underlying infiltrate cannot be fully ruled out. The patient is unable to give much in the way of history. The patient is mostly bedbound and G-tube fed at present. The case discussed. The events are fairly acute in nature. No cough or congestion. No aspiration events. PAST MEDICAL HISTORY: Notable for G-tube, aspiration, diabetes, hypertension, significant debility, confusion, chronic encephalopathy. MEDICATIONS: Reviewed. ALLERGIES: Reviewed. SOCIAL HISTORY: Resides at [facility] on chronic basis. FAMILY HISTORY: Not available. REVIEW OF SYSTEMS: Unobtainable. PHYSICAL EXAMINATION: GENERAL: An ill-appearing female of advanced age. VITAL SIGNS: Blood pressure 115/47, pulse 56, temperature 97.9, O2 saturation 95% on 2 liters, respiratory rate is 21. HEENT: Negative. NECK: Supple. LUNGS: Coarse breath sounds. Moderate air entry. CARDIAC: Bradycardic without murmurs. ABDOMEN: Soft. G-tube in place. No distention. EXTREMITIES: No cyanosis or clubbing. There are contractures. SKIN: Noted. NEUROLOGICAL: Poorly responsive. LABORATORY DATA: Reviewed. Liver enzymes elevated diffusely. AST 190, ALT 187, alkaline phosphatase 142. Electrolytes notable for BUN 43, creatinine 0.9. Lactic acid elevated. White blood cell count 17. Chest x-ray with pleural effusion. IMPRESSION: Pleural effusion, possible sepsis, lactic acidemia, elevated troponin, possible demand ischemia, elevated liver enzymes of unclear etiology, noted transaminitis, acute renal failure, significant debility, diabetes, and hypertension. RECOMMENDATIONS: Supportive care. IV hydration. Resume medications. IV antibiotics empirically. ID evaluation to follow. Hydrate and monitor renal function. Monitor thyroid functions. Resume [facility] medications and monitor clinically for further changes and interventions. Prognosis is overall poor. Conservative management and Do Not Resuscitate . Ozzie Renteria M.D. DR: MARTY JOB#: [id number] CC:
[2019-08-25 20:00] VITALS: BP 145/72
[2019-08-26] VITALS (7 sets, daily range): BP systolic 115–135; BP diastolic 52–80
[2019-08-26 04:44] LABS: HEMATOCRIT 35.3 % (37.0-47.0); HEMOGLOBIN 12.2 G/DL (12.0-16.0); MEAN CORPUSCULAR VOLUME 98 FL (80-99); PLATELET COUNT 92 K/UL (150-450); RED CELL DISTRIBUTION WIDTH 13.4 % (11.6-14.8); WHITE BLOOD COUNT 14.6 K/UL (4.8-10.8)
[2019-08-26 04:57] LABS: ANION GAP 8 mmol/L (5-15); BLOOD UREA NITROGEN 24 mg/dL (7-18); CALCIUM 8.1 MG/DL (8.5-10.1); CARBON DIOXIDE 24 MMOL/L (21-32); CHLORIDE 109 MMOL/L (98-107); CREATININE 0.5 MG/DL (0.55-1.30); SODIUM 141 MMOL/L (136-145)
[2019-08-26] MEDS: Piperacillin/Tazobactam 3.375 GM in NS 110 ML IVPB SCH ×3 (05:02→22:11)
[2019-08-26] MEDS: NovoLOG Insulin Flexpen SUBQ SCH ×4 (05:30→21:00)
[2019-08-26] MEDS: HydrALAZINE 25mg tab ORAL SCH ×3 (05:57→22:10)
[2019-08-26] MEDS ORDERED: Lansoprazole 15mg cap ORAL SCH (09:00)
[2019-08-26] MEDS: Losartan 50mg tab ORAL SCH (09:01)
--- NOTE | 2019-08-26 09:39 | Pulmonology Progress Note ---
Assessment/Plan Assessment/Plan IMPRESSION: Pleural effusion, possible sepsis, lactic acidemia, elevated troponin, possible demand ischemia, elevated liver enzymes of unclear etiology, noted transaminitis, acute renal failure, significant debility, diabetes, and hypertension. PLAN IV antibiotics respiratory care oxygen care off load aspiration precautions close follow up impression, plan, and exam edited and reviewed in detail care discussed with RN Subjective ROS Limited/Unobtainable: Yes Allergies: Coded Allergies: ASPIRIN (Verified Allergy, Unknown, Altered Mental Status, 07/28/18) Subjective on feeds awake no clear distress on oxygen Objective Last 24 Hour Vital Signs Date Time Temp Pulse Resp B/P (MAP) Pulse Ox O2 Delivery O2 Flow Rate FiO2 08/26/19 09:01 135/57 08/26/19 07:48 98.2 60 22 135/57 (83) 97 08/26/19 05:57 115/63 08/26/19 05:42 63 115/63 (80) 08/26/19 04:00 2.0 08/26/19 04:00 98.8 57 20 123/52 (75) 98 08/26/19 03:34 61 08/26/19 00:00 97.9 61 22 116/59 (78) 98 08/26/19 00:00 2.0 08/25/19 23:23 55 08/25/19 21:35 115/55 08/25/19 21:00 Nasal Cannula 2.0 08/25/19 20:00 97.7 54 22 145/72 (96) 98 08/25/19 20:00 2.0 08/25/19 20:00 52 08/25/19 16:00 50 08/25/19 16:00 2.0 08/25/19 16:00 97.9 56 21 115/47 (69) 97 08/25/19 13:50 111/71 08/25/19 12:00 Nasal Cannula 2.0 08/25/19 12:00 2.0 08/25/19 12:00 98.6 66 22 111/71 (84) 97 08/25/19 11:41 56 08/25/19 11:30 Nasal Cannula 2.0 08/25/19 10:21 98.1 Intake and Output 08/25/19 08/26/19 19:00 07:00 Intake Total 1243.333 ml 1748.5 ml Output Total 1000 ml 600 ml Balance 243.333 ml 1148.5 ml Intake Free Water 30 ml 30 ml IV Total 1003.333 ml 1318.5 ml Tube Feeding 210 ml 400 ml Output Urine Total 1000 ml 600 ml # Bowel Movements 3 1 Objective GENERAL: An ill-appearing female of advanced age. HEENT: Negative. NECK: Supple. LUNGS: Coarse breath sounds. Moderate air entry. no wheeze CARDIAC: Bradycardic without murmurs. ABDOMEN: Soft. G-tube in place. No distention. EXTREMITIES: No cyanosis or clubbing. There are contractures. SKIN: Noted. NEUROLOGICAL: more alert Microbiology Date/Time Source Procedure Growth Status 08/25/19 05:45 Blood Blood Culture - Preliminary NO GROWTH AFTER 24 HOURS Resulted 08/25/19 05:30 Blood Blood Culture - Preliminary NO GROWTH AFTER 24 HOURS Resulted 08/25/19 05:30 Nasal Nares Left - Final Complete 08/25/19 05:30 Nasal Nares Left - Final Complete 08/25/19 06:03 Urine,Clean Catch Urine Culture - Preliminary NO GROWTH AFTER 24 HOURS Resulted Laboratory Tests 08/26/19 03:45: White Blood Count 14.6H, Red Blood Count 3.60L, Hemoglobin 12.2, Hematocrit 35.3L, Mean Corpuscular Volume 98, Mean Corpuscular Hemoglobin 33.7H, Mean Corpuscular Hemoglobin Concent 34.4, Red Cell Distribution Width 13.4, Platelet Count 92L, Mean Platelet Volume 8.8, Neutrophils (%) (Auto) , Lymphocytes (%) ( Auto) , Monocytes (%) (Auto) , Eosinophils (%) (Auto) , Basophils (%) (Auto) , Sodium Level 141, Potassium Level 4.0, Chloride Level 109H, Carbon Dioxide Level 24, Anion Gap 8, Blood Urea Nitrogen 24H, Creatinine 0.5L, Estimat Glomerular Filtration Rate > 60, Glucose Level 130H, Calcium Level 8.1L Current Medications Medications (Trade) Dose Ordered Sig/Juan Route PRN Reason Start Time Stop Time Status Last Admin Dose Admin Acetaminophen (Tylenol) 650 mg Q4H PRN ORAL Prn Headache/Temp > 101 08/25/19 11:30 09/24/19 11:29 Al Hydroxide/Mg Hydroxide (Mylanta) 30 ml Q4H PRN ORAL STOMACH PAIN 08/25/19 11:15 09/24/19 11:14 Dextrose (Dextrose 50%) 25 ml Q30M PRN IV Hypoglycemia 08/25/19 11:45 09/24/19 11:44 Dextrose (Dextrose 50%) 50 ml Q30M PRN IV Hypoglycemia 08/25/19 11:45 09/24/19 11:44 Hydralazine HCl (Apresoline) 25 mg EVERY 8 HOURS ORAL 08/25/19 14:00 09/24/19 13:59 Insulin Aspart (NovoLOG) BEFORE MEALS AND HS SUBQ 08/25/19 16:30 09/24/19 16:29 Lansoprazole (Prevacid) 30 mg DAILY ORAL 08/26/19 09:00 09/25/19 08:59 08/26/19 09:02 Levothyroxine Sodium (Synthroid) 100 mcg Q24H ORAL 08/26/19 06:30 09/25/19 06:29 08/26/19 06:01 Losartan Potassium (Cozaar) 50 mg DAILY ORAL 08/26/19 09:00 09/25/19 08:59 08/26/19 09:01 Piperacillin Sod/ Tazobactam Sod 3.375 gm/Sodium Chloride 110 ml @ 27.5 mls/hr Q8HR IVPB 08/25/19 14:00 09/01/19 13:59 08/26/19 05:02 Sodium Chloride 1,000 ml @ 100 mls/hr Q10H IV 08/25/19 11:30 09/24/19 11:29 08/26/19 05:02 Vancomycin HCl (Vanco rx to dose) 1 ea DAILY PRN MISC Per rx protocol 08/25/19 11:15 09/24/19 11:14 Vancomycin HCl 750 mg/Sodium Chloride 275 ml @ 183.333 mls/hr Q24H IVPB 08/25/19 13:00 08/30/19 12:59 08/25/19 13:45 Ozzie Renteria MD Aug 26, 2019 09:39
[2019-08-26] MEDS: Vancomycin 750 MG in NS 275 ML IVPB SCH (13:35)
--- NOTE | 2019-08-26 15:45 | Consultation ---
DATE OF CONSULTATION: 08/26/2019 INFECTIOUS DISEASE CONSULTATION This consult is for coverage of Dr. Velasco. CONSULTING PHYSICIAN: Robbin Flaherty M.D. PRIMARY ATTENDING: Ozzie Renteria M.D. REASON FOR CONSULT: Sepsis, UTI. HISTORY OF PRESENT ILLNESS: This is an 88-year-old white female who is a detention resident admitted last night for altered mental status. The patient has decrease in response. In hospital, the patient had lactic acidosis, leukocytosis of 17,000, fever of 102. The patient has azotemia, elevated liver enzymes. The patient is not a source of history. PAST MEDICAL HISTORY: Significant for hypertension, dementia, diabetes mellitus, hypothyroidism, G-tube feeding, diverticulosis without diverticulitis, T11 and T12 compression fractures. ALLERGIES: Allergic to aspirin. MEDICATIONS: Zosyn, vancomycin, Tylenol, sliding scale insulin, levothyroxine, losartan and Protonix. CODE STATUS: DNR. SOCIAL HISTORY: [facility] resident. Single. No history of alcohol, drug abuse, or smoking. REVIEW OF SYSTEMS: Unobtainable. PHYSICAL EXAMINATION: VITAL SIGNS: Temperature 98.2, pulse 62, blood pressure 135/57. GENERAL APPEARANCE: No acute distress. HEAD AND NECK: [place] conjunctiva. HEART: Normal rate. LUNGS: Clear. ABDOMEN: Soft. G-tube feeding. Nontender. EXTREMITIES: Has no edema. Has bilateral sequential compression device of legs. NEUROLOGIC: Awake, alert, verbal, oriented only to her name. LABORATORY AND DIAGNOSTIC DATA: WBC 14.6 coming down from 17,000 at the time of admission, hemoglobin 12.2, hematocrit 35.3, platelets is 92. Sodium 141, potassium 4, chloride 109, bicarb 24, BUN 24, creatinine 0.5. BUN at the time of admission was 43. AST 190, ALT 182, alkaline phosphatase is 142. Troponin 0.207. Albumin 2.4. Chest x-ray, suspected left pleural effusion. Underlying infiltrate could be present. Venous Duplex of lower extremities done showed venous thrombosis. UA showed wbc too many to count, rbc 5 to 10, nitrite positive. Cultures, blood culture so far negative. Urine culture negative for 24 hours. Influenza A and B tests were negative. IMPRESSION: Sepsis with fever and leukocytosis. Seems to have pyuria, UTI. Has pleural effusion. May have underlying pneumonia. Has elevated transaminase. Has advanced dementia, G-tube feeding, hypothyroidism. RECOMMENDATION: Continue vancomycin. Continue Zosyn. We will order abdominal ultrasound to rule out liver problem and cholecystitis. At the end of my exam, I thank Dr. Renteria for involving me in the care of this patient. Robbin Flaherty M.D. DR: LYSSA JOB#: [id number] CC: LIZ
[2019-08-26] MEDS ORDERED: PRO-STAT LIQUID30 ML GT (20:50)
[2019-08-26] MEDS ORDERED: GLUCERNA 1.5 C237 ML GT (20:51)
[2019-08-26] MEDS ORDERED: Tubing IV Secondary IV ONE (22:51)
[2019-08-26] MEDS ORDERED: NS 275ml ONE (22:51)
[2019-08-27] VITALS: BP 132/64
[2019-08-27 04:00] VITALS: BP 134/61
[2019-08-27] MEDS: NovoLOG Insulin Flexpen SUBQ SCH ×4 (05:41→21:00)
[2019-08-27] MEDS: Piperacillin/Tazobactam 3.375 GM in NS 110 ML IVPB SCH ×3 (05:52→21:20)
[2019-08-27] MEDS: HydrALAZINE 25mg tab ORAL SCH ×3 (06:33→21:20)
[2019-08-27 07:58] VITALS: BP 134/74
--- NOTE | 2019-08-27 08:41 | Pulmonology Progress Note ---
Assessment/Plan Assessment/Plan IMPRESSION: Pleural effusion, bacteremia/ sepsis, lactic acidemia, elevated troponin, possible demand ischemia, elevated liver enzymes of unclear etiology, noted transaminitis, acute renal failure, significant debility, diabetes, and hypertension. PLAN IV antibiotics as is ID noted respiratory care oxygen care off load aspiration precautions GT feeds for now close follow up impression, plan, and exam edited and reviewed in detail care discussed with RN Subjective ROS Limited/Unobtainable: Yes Allergies: Coded Allergies: ASPIRIN (Verified Allergy, Unknown, Altered Mental Status, 07/28/18) Subjective on feeds awake no clear distress + bcx noted ID discussed Objective Last 24 Hour Vital Signs Date Time Temp Pulse Resp B/P (MAP) Pulse Ox O2 Delivery O2 Flow Rate FiO2 08/27/19 07:58 98.6 63 19 134/74 (94) 96 08/27/19 07:41 56 08/27/19 07:25 93 Nasal Cannula 2.0 28 08/27/19 06:33 134/61 08/27/19 04:00 97.2 56 17 134/61 (85) 92 08/27/19 04:00 58 08/27/19 00:00 98.2 55 20 132/64 (86) 92 08/27/19 00:00 52 08/26/19 22:10 126/63 08/26/19 21:00 Nasal Cannula 2.0 08/26/19 20:00 98.4 54 21 126/63 (84) 96 08/26/19 20:00 57 08/26/19 16:00 2.0 08/26/19 16:00 97.5 58 23 124/80 (95) 95 08/26/19 15:15 42 08/26/19 12:00 2.0 08/26/19 12:00 98.1 56 20 132/66 (88) 97 08/26/19 11:54 51 08/26/19 09:01 135/57 08/26/19 09:00 Nasal Cannula 2.0 Intake and Output 08/26/19 08/27/19 19:00 07:00 Intake Total 1567.500 ml 666.2 ml Output Total 700 ml Balance 1567.500 ml -33.8 ml Intake Free Water 30 ml IV Total 1267.500 ml 136.2 ml Tube Feeding 300 ml 500 ml Output Urine Total 700 ml Objective GENERAL: An ill-appearing female of advanced age. HEENT: Negative. NECK: Supple. LUNGS: Coarse breath sounds. Moderate air entry. no wheeze CARDIAC: Bradycardic without murmurs. ABDOMEN: Soft. G-tube in place. No distention. EXTREMITIES: No cyanosis or clubbing. There are contractures. SKIN: Noted. NEUROLOGICAL: more alert Microbiology Date/Time Source Procedure Growth Status 08/25/19 05:45 Blood Blood Culture - Preliminary Gram Positive Cocci Resulted 08/25/19 05:30 Blood Blood Culture - Preliminary Gram Positive Cocci Resulted 08/25/19 05:30 Nasal Nares Left - Final Complete 08/25/19 05:30 Nasal Nares Left - Final Complete 08/25/19 06:03 Urine,Clean Catch Urine Culture - Preliminary Resulted 08/25/19 05:30 Rectum VRE Culture - Final NO VANCOMYCIN RESISTANT ENTEROCOCCUS ... Complete Current Medications Medications (Trade) Dose Ordered Sig/Juan Route PRN Reason Start Time Stop Time Status Last Admin Dose Admin Acetaminophen (Tylenol) 650 mg Q4H PRN ORAL Prn Headache/Temp > 101 08/25/19 11:30 09/24/19 11:29 Al Hydroxide/Mg Hydroxide (Mylanta) 30 ml Q4H PRN ORAL STOMACH PAIN 08/25/19 11:15 09/24/19 11:14 Dextrose (Dextrose 50%) 25 ml Q30M PRN IV Hypoglycemia 08/25/19 11:45 09/24/19 11:44 Dextrose (Dextrose 50%) 50 ml Q30M PRN IV Hypoglycemia 08/25/19 11:45 09/24/19 11:44 Hydralazine HCl (Apresoline) 25 mg EVERY 8 HOURS ORAL 08/25/19 14:00 09/24/19 13:59 08/27/19 06:33 Insulin Aspart (NovoLOG) BEFORE MEALS AND HS SUBQ 08/25/19 16:30 09/24/19 16:29 Lansoprazole (Prevacid) 30 mg DAILY ORAL 08/26/19 09:00 09/25/19 08:59 08/26/19 09:02 Levothyroxine Sodium (Synthroid) 100 mcg Q24H ORAL 08/26/19 06:30 09/25/19 06:29 08/27/19 06:33 Losartan Potassium (Cozaar) 50 mg DAILY ORAL 08/26/19 09:00 09/25/19 08:59 08/26/19 09:01 Piperacillin Sod/ Tazobactam Sod 3.375 gm/Sodium Chloride 110 ml @ 27.5 mls/hr Q8HR IVPB 08/25/19 14:00 09/01/19 13:59 08/27/19 05:52 Vancomycin HCl (Vanco rx to dose) 1 ea DAILY PRN MISC Per rx protocol 08/25/19 11:15 09/24/19 11:14 Vancomycin HCl 750 mg/Sodium Chloride 275 ml @ 183.333 mls/hr Q24H IVPB 08/25/19 13:00 08/30/19 12:59 08/26/19 13:35 Ozzie Renteria MD Aug 27, 2019 08:41
[2019-08-27] MEDS: Losartan 50mg tab ORAL SCH (09:27)
--- NOTE | 2019-08-27 10:10 | Diagnostic Imaging Report ---
Indication: Abdominal pain, abnormal liver function tests Technique: Moser-scale and duplex images of the upper abdomen were obtained Comparison: none Findings: Gallbladder is unremarkable, without stones, wall thickening, nor pericholecystic fluid. Sonographic Bedolla's sign is negative. Common bile duct measures 3 mm in diameter. No intrahepatic biliary ductal dilatation. Liver demonstrates normal echogenicity, no focal abnormality. Portal vein and hepatic veins are patent. Pancreas is incompletely visualized due to overlying bowel gas, visualized portions are unremarkable. Spleen is unremarkable. Left kidney measures 10.5 cm in length. Right kidney measures 10 cm length. Both kidneys demonstrate normal echogenicity. There is no hydronephrosis. No focal abnormality . Non-aneurysmal abdominal aorta . Impression: Essentially unremarkable exam. Negative for gallstones or dilated ducts or other acute or significant abnormality Note inability to visualize portions of the pancreas
--- NOTE | 2019-08-27 10:11 | Infectious Diseases Prog Note ---
Assessment/Plan Assessment/Plan antibiotics : vancomycin iv, zosyn A 1. gram positive sepsis 2. pneumonia 3, UTI 4. leucocytosis improving 5. r/o cholecystitis P 1. continue iv vancomycin, zosyn 2. will follow up cultures 3. abdominal US pending Subjective ROS Limited/Unobtainable: Yes Allergies: Coded Allergies: ASPIRIN (Verified Allergy, Unknown, Altered Mental Status, 07/28/18) Objective Vital Signs Last 24 Hour Vital Signs Date Time Temp Pulse Resp B/P (MAP) Pulse Ox O2 Delivery O2 Flow Rate FiO2 08/27/19 09:27 134/74 08/27/19 07:58 98.6 63 19 134/74 (94) 96 08/27/19 07:41 56 08/27/19 07:25 93 Nasal Cannula 2.0 28 08/27/19 06:33 134/61 08/27/19 04:00 97.2 56 17 134/61 (85) 92 08/27/19 04:00 58 08/27/19 00:00 98.2 55 20 132/64 (86) 92 08/27/19 00:00 52 08/26/19 22:10 126/63 08/26/19 21:00 Nasal Cannula 2.0 08/26/19 20:00 98.4 54 21 126/63 (84) 96 08/26/19 20:00 57 08/26/19 16:00 2.0 08/26/19 16:00 97.5 58 23 124/80 (95) 95 08/26/19 15:15 42 08/26/19 12:00 2.0 08/26/19 12:00 98.1 56 20 132/66 (88) 97 08/26/19 11:54 51 Height (Feet): 5 Height (Inches): 4.00 Weight (Pounds): 124 Respiratory/Chest: lungs clear Cardiovascular: normal rate, regular rhythm, no gallop/murmur Abdomen: soft, non tender, other - GT Extremities: no edema Microbiology Date/Time Source Procedure Growth Status 08/25/19 05:45 Blood Blood Culture - Preliminary Gram Positive Cocci Resulted 08/25/19 05:30 Blood Blood Culture - Preliminary Gram Positive Cocci Resulted 08/25/19 05:30 Nasal Nares Left - Final Complete 08/25/19 05:30 Nasal Nares Left - Final Complete 08/25/19 06:03 Urine,Clean Catch Urine Culture - Preliminary Resulted 08/25/19 05:30 Rectum VRE Culture - Final NO VANCOMYCIN RESISTANT ENTEROCOCCUS ... Complete Current Medications Medications (Trade) Dose Ordered Sig/Juan Route PRN Reason Start Time Stop Time Status Last Admin Dose Admin Acetaminophen (Tylenol) 650 mg Q4H PRN ORAL Prn Headache/Temp > 101 08/25/19 11:30 09/24/19 11:29 Al Hydroxide/Mg Hydroxide (Mylanta) 30 ml Q4H PRN ORAL STOMACH PAIN 08/25/19 11:15 09/24/19 11:14 Dextrose (Dextrose 50%) 25 ml Q30M PRN IV Hypoglycemia 08/25/19 11:45 09/24/19 11:44 Dextrose (Dextrose 50%) 50 ml Q30M PRN IV Hypoglycemia 08/25/19 11:45 09/24/19 11:44 Hydralazine HCl (Apresoline) 25 mg EVERY 8 HOURS ORAL 08/25/19 14:00 09/24/19 13:59 08/27/19 06:33 Insulin Aspart (NovoLOG) BEFORE MEALS AND HS SUBQ 08/25/19 16:30 09/24/19 16:29 Lansoprazole (Prevacid) 30 mg DAILY ORAL 08/26/19 09:00 09/25/19 08:59 08/27/19 09:27 Levothyroxine Sodium (Synthroid) 100 mcg Q24H ORAL 08/26/19 06:30 09/25/19 06:29 08/27/19 06:33 Losartan Potassium (Cozaar) 50 mg DAILY ORAL 08/26/19 09:00 09/25/19 08:59 08/27/19 09:27 Piperacillin Sod/ Tazobactam Sod 3.375 gm/Sodium Chloride 110 ml @ 27.5 mls/hr Q8HR IVPB 08/25/19 14:00 09/01/19 13:59 08/27/19 05:52 Vancomycin HCl (Vanco rx to dose) 1 ea DAILY PRN MISC Per rx protocol 08/25/19 11:15 09/24/19 11:14 Vancomycin HCl 750 mg/Sodium Chloride 275 ml @ 183.333 mls/hr Q24H IVPB 3/4/20 13:00 08/30/19 12:59 08/26/19 13:35 Samantha Velasco MD Aug 27, 2019 10:11
[2019-08-27 12:00] VITALS: BP 124/61
[2019-08-27] MEDS: Vancomycin 750 MG in NS 275 ML IVPB SCH (13:28)
[2019-08-27 16:00] VITALS: BP 120/71
[2019-08-27 20:00] VITALS: BP 120/53
[2019-08-28] VITALS (7 sets, daily range): BP systolic 128–144; BP diastolic 55–80
[2019-08-28] MEDS: HydrALAZINE 25mg tab ORAL SCH ×3 (05:44→21:07)
[2019-08-28] MEDS: Piperacillin/Tazobactam 3.375 GM in NS 110 ML IVPB SCH ×3 (05:44→21:07)
[2019-08-28] MEDS: NovoLOG Insulin Flexpen SUBQ SCH ×3 (05:51→17:45)
[2019-08-28] MEDS: Losartan 50mg tab ORAL SCH (09:08)
--- NOTE | 2019-08-28 11:48 | General Progress Note ---
Assessment/Plan Problem List: (1) Leukocytosis ICD Codes: D72.829 - Elevated white blood cell count, unspecified SNOMED: 120477538, 208343769 (2) Dementia with behavioral disturbance ICD Codes: F03.91 - Unspecified dementia with behavioral disturbance SNOMED: 6991466433406 (3) Acute prerenal azotemia ICD Codes: R79.89 - Other specified abnormal findings of blood chemistry SNOMED: 962690864 (4) ACS (acute coronary syndrome) ICD Codes: I24.9 - Acute ischemic heart disease, unspecified SNOMED: 802194951 (5) Sepsis ICD Codes: A41.9 - Sepsis, unspecified organism SNOMED: 83519234 Qualifiers: Qualified Codes: A41.9 - Sepsis, unspecified organism; R65.20 - Severe sepsis without septic shock; N17.9 - Acute kidney failure, unspecified (6) UTI (urinary tract infection) ICD Codes: N39.0 - Urinary tract infection, site not specified SNOMED: 38400792 Qualifiers: Qualified Codes: N30.00 - Acute cystitis without hematuria (7) Acute metabolic encephalopathy ICD Codes: G93.41 - Metabolic encephalopathy SNOMED: 00512607, 723399540 Status: stable Assessment/Plan: resp care suctioning as needed iv abx follow up cultures monitor cxr turn dvtg/stress ulcer prophylaxis Subjective ROS Limited/Unobtainable: No Constitutional: Reports: malaise, weakness HEENT: Reports: no symptoms Cardiovascular: Reports: no symptoms Respiratory: Reports: cough, shortness of breath, sputum Gastrointestinal/Abdominal: Reports: difficulty swallowing Genitourinary: Reports: no symptoms Neurologic/Psychiatric: Reports: anxiety, depressed Endocrine: Reports: no symptoms Hematologic/Lymphatic: Reports: anemia Allergies: Coded Allergies: ASPIRIN (Verified Allergy, Unknown, Altered Mental Status, 07/28/18) All Systems: reviewed and negative except above Subjective no events. awake. confused. no cp/sob. mild congestion. on iv abx Objective Last 24 Hour Vital Signs Date Time Temp Pulse Resp B/P (MAP) Pulse Ox O2 Delivery O2 Flow Rate FiO2 08/28/19 09:08 144/80 08/28/19 09:00 Room Air 08/28/19 08:00 97.7 50 24 144/80 (101) 94 3/7/20 07:55 64 08/28/19 05:44 128/68 08/28/19 05:38 54 128/68 (88) 08/28/19 04:00 97.7 59 20 135/55 (81) 95 08/28/19 04:00 62 08/28/19 00:00 98.9 57 20 128/64 (85) 94 08/28/19 00:00 59 08/27/19 21:20 120/53 08/27/19 21:00 Nasal Cannula 2.0 08/27/19 20:00 120/53 (75) 08/27/19 20:00 97.3 56 16 97 08/27/19 20:00 59 08/27/19 16:00 54 08/27/19 16:00 96.8 75 18 120/71 (87) 98 08/27/19 14:14 124/61 08/27/19 12:00 97.7 65 18 124/61 (82) 98 Intake and Output 08/27/19 08/28/19 19:00 07:00 Intake Total 60 ml 860 ml Balance 60 ml 860 ml Intake Free Water 90 ml IV Total 110 ml Tube Feeding 60 ml 660 ml Height (Feet): 5 Height (Inches): 4.00 Weight (Pounds): 124 General Appearance: WD/WN, alert, confused Neck: supple Cardiovascular: regular rhythm Respiratory/Chest: no respiratory distress, no accessory muscle use, rhonchi - bilaterally Abdomen: normal bowel sounds, non tender, soft, no organomegaly Edema: no edema noted Arm (L), no edema noted Arm (R), no edema noted Leg (L), no edema noted Leg (R), no edema noted Pedal (L), no edema noted Pedal (R), no edema noted 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
[2019-08-28] MEDS ORDERED: Tubing IV Secondary IV ONE (12:06)
[2019-08-28] MEDS ORDERED: NS 275ml ONE (12:06)
[2019-08-28] MEDS: Vancomycin 750 MG in NS 275 ML IVPB SCH (13:03)
--- NOTE | 2019-08-28 15:41 | Pulmonology Progress Note ---
Assessment/Plan Assessment/Plan Pulmonary Progress Note Assessment/Plan IMPRESSION: Pleural effusion, bacteremia/ sepsis, lactic acidemia, elevated troponin, possible demand ischemia, elevated liver enzymes of unclear etiology, noted transaminitis, acute renal failure, significant debility, diabetes, and hypertension. PLAN IV antibiotics as is ID noted respiratory care oxygen care off load aspiration precautions GT feeds for now close follow up impression, plan, and exam edited and reviewed in detail care discussed with RN Subjective ROS Limited/Unobtainable: Yes Allergies: Coded Allergies: ASPIRIN (Verified Allergy, Unknown, Altered Mental Status, 07/28/18) Subjective on feeds awake no clear distress Objective Last 24 Hour Vital Signs Noted Objective GENERAL: An ill-appearing female of advanced age. HEENT: Negative. NECK: Supple. LUNGS: Coarse breath sounds. Moderate air entry. no wheeze CARDIAC: Bradycardic without murmurs. ABDOMEN: Soft. G-tube in place. No distention. EXTREMITIES: No cyanosis or clubbing. There are contractures. SKIN: Noted. NEUROLOGICAL: more alert Microbiology Date/Time Source Procedure Growth Status 08/25/19 05:45 Blood Blood Culture - Preliminary Gram Positive Cocci Resulted 08/25/19 05:30 Blood Blood Culture - Preliminary Gram Positive Cocci Resulted 08/25/19 05:30 Nasal Nares Left - Final Complete 08/25/19 05:30 Nasal Nares Left - Final Complete 08/25/19 06:03 Urine,Clean Catch Urine Culture - Preliminary Resulted 08/25/19 05:30 Rectum VRE Culture - Final NO VANCOMYCIN RESISTANT ENTEROCOCCUS ... Complete Current Medications Medications (Trade) Dose Ordered Sig/Juan Route PRN Reason Start Time Stop Time Status Last Admin Dose Admin Acetaminophen (Tylenol) 650 mg Q4H PRN ORAL Prn Headache/Temp > 101 08/25/19 11:30 09/24/19 11:29 Al Hydroxide/Mg Hydroxide (Mylanta) 30 ml Q4H PRN ORAL STOMACH PAIN 08/25/19 11:15 09/24/19 11:14 Dextrose (Dextrose 50%) 25 ml Q30M PRN IV Hypoglycemia 08/25/19 11:45 09/24/19 11:44 Dextrose (Dextrose 50%) 50 ml Q30M PRN IV Hypoglycemia 08/25/19 11:45 09/24/19 11:44 Hydralazine HCl (Apresoline) 25 mg EVERY 8 HOURS ORAL 08/25/19 14:00 09/24/19 13:59 08/27/19 06:33 Insulin Aspart (NovoLOG) BEFORE MEALS AND HS SUBQ 08/25/19 16:30 09/24/19 16:29 Lansoprazole (Prevacid) 30 mg DAILY ORAL 08/26/19 09:00 09/25/19 08:59 08/26/19 09:02 Levothyroxine Sodium (Synthroid) 100 mcg Q24H ORAL 08/26/19 06:30 09/25/19 06:29 08/27/19 06:33 Losartan Potassium (Cozaar) 50 mg DAILY ORAL 08/26/19 09:00 09/25/19 08:59 08/26/19 09:01 Piperacillin Sod/ Tazobactam Sod 3.375 gm/Sodium Chloride 110 ml @ 27.5 mls/hr Q8HR IVPB 08/25/19 14:00 09/01/19 13:59 08/27/19 05:52 Vancomycin HCl (Vanco rx to dose) 1 ea DAILY PRN MISC Per rx protocol 08/25/19 11:15 09/24/19 11:14 Vancomycin HCl 750 mg/Sodium Chloride 275 ml @ 183.333 mls/hr Q24H IVPB 08/25/19 13:00 08/30/19 12:59 08/26/19 13:35 Subjective ROS Limited/Unobtainable: No Allergies: Coded Allergies: ASPIRIN (Verified Allergy, Unknown, Altered Mental Status, 07/28/18) Objective Last 24 Hour Vital Signs Date Time Temp Pulse Resp B/P (MAP) Pulse Ox O2 Delivery O2 Flow Rate FiO2 08/28/19 14:26 140/57 08/28/19 12:00 97.3 52 23 140/57 (84) 95 08/28/19 11:31 54 08/28/19 09:08 144/80 08/28/19 09:00 Room Air 08/28/19 08:00 97.7 50 24 144/80 (101) 94 08/28/19 07:55 64 08/28/19 05:44 128/68 08/28/19 05:38 54 128/68 (88) 08/28/19 04:00 97.7 59 20 135/55 (81) 95 08/28/19 04:00 62 3/7/20 00:00 98.9 57 20 128/64 (85) 94 08/28/19 00:00 59 08/27/19 21:20 120/53 08/27/19 21:00 Nasal Cannula 2.0 08/27/19 20:00 120/53 (75) 08/27/19 20:00 97.3 56 16 97 08/27/19 20:00 59 08/27/19 16:00 54 08/27/19 16:00 96.8 75 18 120/71 (87) 98 Intake and Output 08/27/19 08/28/19 19:00 07:00 Intake Total 60 ml 860 ml Balance 60 ml 860 ml Intake Free Water 90 ml IV Total 110 ml Tube Feeding 60 ml 660 ml Laboratory Tests 08/28/19 11:45: Vancomycin Level Trough 6.9 Current Medications Medications (Trade) Dose Ordered Sig/Juan Route PRN Reason Start Time Stop Time Status Last Admin Dose Admin Acetaminophen (Tylenol) 650 mg Q4H PRN ORAL Prn Headache/Temp > 101 08/25/19 11:30 09/24/19 11:29 Al Hydroxide/Mg Hydroxide (Mylanta) 30 ml Q4H PRN ORAL STOMACH PAIN 08/25/19 11:15 09/24/19 11:14 Dextrose (Dextrose 50%) 25 ml Q30M PRN IV Hypoglycemia 08/25/19 11:45 09/24/19 11:44 Dextrose (Dextrose 50%) 50 ml Q30M PRN IV Hypoglycemia 08/25/19 11:45 09/24/19 11:44 Hydralazine HCl (Apresoline) 25 mg EVERY 8 HOURS ORAL 08/25/19 14:00 09/24/19 13:59 08/28/19 14:26 Insulin Aspart (NovoLOG) EVERY 6 HOURS SUBQ 08/28/19 12:00 09/24/19 16:29 Lansoprazole (Prevacid) 30 mg DAILY ORAL 08/26/19 09:00 09/25/19 08:59 08/28/19 09:08 Levothyroxine Sodium (Synthroid) 100 mcg Q24H ORAL 08/26/19 06:30 09/25/19 06:29 08/28/19 05:44 Losartan Potassium (Cozaar) 50 mg DAILY ORAL 08/26/19 09:00 09/25/19 08:59 08/28/19 09:08 Piperacillin Sod/ Tazobactam Sod 3.375 gm/Sodium Chloride 110 ml @ 27.5 mls/hr Q8HR IVPB 08/25/19 14:00 09/01/19 13:59 08/28/19 14:25 Vancomycin HCl (Vanco rx to dose) 1 ea DAILY PRN MISC Per rx protocol 08/25/19 11:15 09/24/19 11:14 Vancomycin HCl 750 mg/Sodium Chloride 275 ml @ 183.333 mls/hr Q12HR@0100,1300 IVPB 08/29/19 01:00 09/03/19 00:59 King Veliz MD Aug 28, 2019 15:41
[2019-08-29] VITALS (7 sets, daily range): BP systolic 99–135; BP diastolic 49–65
[2019-08-29] MEDS ORDERED: Vancomycin 750 MG in NS 275 ML IVPB SCH ×4 (01:00)
[2019-08-29] MEDS: HydrALAZINE 25mg tab ORAL SCH ×3 (05:40→22:10)
[2019-08-29] MEDS: Piperacillin/Tazobactam 3.375 GM in NS 110 ML IVPB SCH ×3 (05:40→22:10)
[2019-08-29] MEDS: NovoLOG Insulin Flexpen SUBQ SCH ×4 (06:23→18:00)
[2019-08-29] MEDS: Losartan 50mg tab ORAL SCH (09:00)
--- NOTE | 2019-08-29 11:02 | General Progress Note ---
Assessment/Plan Problem List: (1) Leukocytosis ICD Codes: D72.829 - Elevated white blood cell count, unspecified SNOMED: 618252117, 493497723 (2) Dementia with behavioral disturbance ICD Codes: F03.91 - Unspecified dementia with behavioral disturbance SNOMED: 7544436554729 (3) Acute prerenal azotemia ICD Codes: R79.89 - Other specified abnormal findings of blood chemistry SNOMED: 307289814 (4) ACS (acute coronary syndrome) ICD Codes: I24.9 - Acute ischemic heart disease, unspecified SNOMED: 470400426 (5) Sepsis ICD Codes: A41.9 - Sepsis, unspecified organism SNOMED: 01381165 Qualifiers: Qualified Codes: A41.9 - Sepsis, unspecified organism; R65.20 - Severe sepsis without septic shock; N17.9 - Acute kidney failure, unspecified (6) UTI (urinary tract infection) ICD Codes: N39.0 - Urinary tract infection, site not specified SNOMED: 51339822 Qualifiers: Qualified Codes: N30.00 - Acute cystitis without hematuria (7) Acute metabolic encephalopathy ICD Codes: G93.41 - Metabolic encephalopathy SNOMED: 50369142, 931506849 Status: stable Assessment/Plan: resp care suctioning as needed iv abx follow up cultures monitor cxr turn dvtg/stress ulcer prophylaxis monitor labs Subjective Constitutional: Reports: malaise, weakness HEENT: Reports: no symptoms Cardiovascular: Reports: no symptoms Respiratory: Reports: cough, shortness of breath, sputum Gastrointestinal/Abdominal: Reports: no symptoms Genitourinary: Reports: no symptoms Neurologic/Psychiatric: Reports: anxiety, depressed Endocrine: Reports: no symptoms Hematologic/Lymphatic: Reports: anemia Allergies: Coded Allergies: ASPIRIN (Verified Allergy, Unknown, Altered Mental Status, 07/28/18) All Systems: reviewed and negative except above Subjective no events. awake. confused. no cp/sob. mild congestion. on iv abx no fevers or chills. Objective Last 24 Hour Vital Signs Date Time Temp Pulse Resp B/P (MAP) Pulse Ox O2 Delivery O2 Flow Rate FiO2 08/29/19 09:57 Room Air 08/29/19 09:37 56 109/50 (69) 08/29/19 09:00 109/50 08/29/19 08:00 97.6 68 24 121/64 (83) 95 08/29/19 05:40 130/54 08/29/19 04:00 97.5 54 24 130/54 (79) 100 08/29/19 00:00 97.9 55 24 107/49 (68) 94 08/28/19 21:07 144/68 08/28/19 21:00 Room Air 08/28/19 20:00 98.3 57 18 144/68 (93) 98 08/28/19 16:00 97.9 56 22 131/68 (89) 94 08/28/19 14:26 140/57 08/28/19 12:00 97.3 52 23 140/57 (84) 95 08/28/19 11:31 54 Intake and Output 08/28/19 08/29/19 19:00 07:00 Intake Total 542.5 ml 790 ml Output Total 1000 ml Balance -457.5 ml 790 ml Intake Free Water 30 ml IV Total 82.5 ml Tube Feeding 360 ml 660 ml Other 100 ml 100 ml Output Urine Total 1000 ml # Bowel Movements 4 Laboratory Tests 08/28/19 11:45: Vancomycin Level Trough 6.9 Height (Feet): 5 Height (Inches): 4.00 Weight (Pounds): 124 Objective General Appearance: WD/WN, alert, confused Neck: supple Cardiovascular: regular rhythm Respiratory/Chest: no respiratory distress, no accessory muscle use, rhonchi - bilaterally Abdomen: normal bowel sounds, non tender, soft, no organomegaly Edema: no edema noted Arm (L), no edema noted Arm (R), no edema noted Leg (L), no edema noted Leg (R), no edema noted Pedal (L), no edema noted Pedal (R), no edema noted 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
[2019-08-29 12:12] LABS: BASOPHILS % (AUTO) 1.5 % (0.0-2.0); EOSINOPHILS % (AUTO) 0.9 % (0.0-3.0); HEMATOCRIT 41.4 % (37.0-47.0); HEMOGLOBIN 14.2 G/DL (12.0-16.0); LYMPHOCYTES % (AUTO) 52.6 % (20.0-45.0); MEAN CORPUSCULAR VOLUME 98 FL (80-99); MONOCYTES % (AUTO) 4.3 % (1.0-10.0); NEUTROPHILS % (AUTO) 40.7 % (45.0-75.0); PLATELET COUNT 112 K/UL (150-450); RED BLOOD COUNT 4.21 M/UL (4.20-5.40); RED CELL DISTRIBUTION WIDTH 13.9 % (11.6-14.8); WHITE BLOOD COUNT 11.6 K/UL (4.8-10.8)
[2019-08-29 12:19] LABS: ALANINE AMINOTRANSFERASE 56 U/L (12-78); ALBUMIN 2.4 G/DL (3.4-5.0); ALBUMIN/GLOBULIN RATIO 0.7 (1.0-2.7); ALKALINE PHOSPHATASE 114 U/L (46-116); ANION GAP 9 mmol/L (5-15); ASPARTATE AMINO TRANSFERASE 24 U/L (15-37); BILIRUBIN,TOTAL 0.5 MG/DL (0.2-1.0); BLOOD UREA NITROGEN 22 mg/dL (7-18); CALCIUM 8.9 MG/DL (8.5-10.1); CARBON DIOXIDE 23 MMOL/L (21-32); CHLORIDE 108 MMOL/L (98-107); CREATININE 0.7 MG/DL (0.55-1.30); POTASSIUM 4.2 MMOL/L (3.5-5.1); SODIUM 140 MMOL/L (136-145)
--- NOTE | 2019-08-29 12:22 | Infectious Diseases Prog Note ---
Assessment/Plan Assessment/Plan A 1. Staph. Hominis in blood culture, likely contamination 2. pneumonia 3, Fungal UTI 4. leucocytosis improving 5. r/o cholecystitis P 1. Discontinue iv vancomycin, Continue Zosyn 2. Starton Fluconazole 3. abdominal US : negative Subjective ROS Limited/Unobtainable: Yes Constitutional: Denies: fever Allergies: Coded Allergies: ASPIRIN (Verified Allergy, Unknown, Altered Mental Status, 07/28/18) Objective Vital Signs Last 24 Hour Vital Signs Date Time Temp Pulse Resp B/P (MAP) Pulse Ox O2 Delivery O2 Flow Rate FiO2 08/29/19 09:57 Room Air 08/29/19 09:37 56 109/50 (69) 08/29/19 09:00 109/50 08/29/19 08:00 97.6 68 24 121/64 (83) 95 08/29/19 05:40 130/54 08/29/19 04:00 97.5 54 24 130/54 (79) 100 08/29/19 00:00 97.9 55 24 107/49 (68) 94 08/28/19 21:07 144/68 08/28/19 21:00 Room Air 08/28/19 20:00 98.3 57 18 144/68 (93) 98 08/28/19 16:00 97.9 56 22 131/68 (89) 94 08/28/19 14:26 140/57 Height (Feet): 5 Height (Inches): 4.00 Weight (Pounds): 124 General Appearance: no acute distress HEENT: mucous membranes moist Respiratory/Chest: lungs clear Cardiovascular: bradycardia Abdomen: soft, non tender, other - GT feeding Extremities: no edema Neurologic/Psychiatric: other - awake Laboratory Tests Test 08/29/19 11:40 White Blood Count Pending Red Blood Count Pending Hemoglobin Pending Hematocrit Pending Mean Corpuscular Volume Pending Mean Corpuscular Hemoglobin Pending Mean Corpuscular Hemoglobin Concent Pending Red Cell Distribution Width Pending Platelet Count Pending Mean Platelet Volume Pending Neutrophils (%) (Auto) Pending Lymphocytes (%) (Auto) Pending Monocytes (%) (Auto) Pending Eosinophils (%) (Auto) Pending Basophils (%) (Auto) Pending Sodium Level Pending Potassium Level Pending Chloride Level Pending Carbon Dioxide Level Pending Blood Urea Nitrogen Pending Creatinine Pending Estimat Glomerular Filtration Rate Pending Glucose Level Pending Calcium Level Pending Total Bilirubin Pending Aspartate Amino Transf (AST/SGOT) Pending Alanine Aminotransferase (ALT/SGPT) Pending Alkaline Phosphatase Pending Total Protein Pending Albumin Pending Globulin Pending Current Medications Medications (Trade) Dose Ordered Sig/Juan Route PRN Reason Start Time Stop Time Status Last Admin Dose Admin Acetaminophen (Tylenol) 650 mg Q4H PRN ORAL Prn Headache/Temp > 101 08/28/19 19:30 09/24/19 11:29 Al Hydroxide/Mg Hydroxide (Mylanta) 30 ml Q4H PRN ORAL STOMACH PAIN 08/28/19 19:00 09/24/19 18:59 Dextrose (Dextrose 50%) 25 ml Q30M PRN IV Hypoglycemia 08/28/19 19:15 09/24/19 11:44 Dextrose (Dextrose 50%) 50 ml Q30M PRN IV Hypoglycemia 08/28/19 19:15 09/24/19 11:44 Hydralazine HCl (Apresoline) 25 mg EVERY 8 HOURS ORAL 08/28/19 22:00 09/24/19 13:59 08/29/19 05:40 Insulin Aspart (NovoLOG) EVERY 6 HOURS SUBQ 08/29/19 00:00 09/24/19 16:29 08/29/19 06:23 Lansoprazole (Prevacid) 30 mg DAILY ORAL 08/29/19 09:00 09/25/19 08:59 08/29/19 09:44 Levothyroxine Sodium (Synthroid) 100 mcg Q24H ORAL 08/29/19 06:30 09/25/19 06:29 08/29/19 05:40 Losartan Potassium (Cozaar) 50 mg DAILY ORAL 08/29/19 09:00 09/25/19 08:59 Piperacillin Sod/ Tazobactam Sod 3.375 gm/Sodium Chloride 110 ml @ 27.5 mls/hr Q8H IVPB 08/28/19 22:00 09/04/19 21:59 08/29/19 05:40 Vancomycin HCl (Vanco rx to dose) 1 ea DAILY PRN MISC Per rx protocol 08/29/19 09:00 09/24/19 11:14 Vancomycin HCl 750 mg/Sodium Chloride 275 ml @ 183.333 mls/hr Q12H IVPB 08/29/19 01:00 09/03/19 00:59 08/29/19 00:17 Robbin Flaherty MD Aug 29, 2019 12:22
[2019-08-29] MEDS: Fluconazole 100mg tab GT SCH (14:08)
--- NOTE | 2019-08-29 16:31 | Pulmonology Progress Note ---
Assessment/Plan Assessment/Plan Pulmonary Progress Note Assessment/Plan IMPRESSION: Pleural effusion, bacteremia/ sepsis, lactic acidemia, elevated troponin, possible demand ischemia, elevated liver enzymes of unclear etiology, noted transaminitis, acute renal failure, significant debility, diabetes, and hypertension. PLAN IV antibiotics ID noted respiratory care oxygen care off load aspiration precautions GT feeds for now close follow up impression, plan, and exam edited and reviewed in detail care discussed with RN Subjective ROS Limited/Unobtainable: Yes Allergies: Coded Allergies: ASPIRIN (Verified Allergy, Unknown, Altered Mental Status, 07/28/18) Subjective on feeds awake no clear distress Objective Last 24 Hour Vital Signs Noted Objective GENERAL: An ill-appearing female of advanced age. HEENT: Negative. NECK: Supple. LUNGS: Coarse breath sounds. Moderate air entry. no wheeze CARDIAC: Bradycardic without murmurs. ABDOMEN: Soft. G-tube in place. No distention. EXTREMITIES: No cyanosis or clubbing. There are contractures. SKIN: Noted. NEUROLOGICAL: more alert Microbiology Date/Time Source Procedure Growth Status 08/25/19 05:45 Blood Blood Culture - Preliminary Gram Positive Cocci Resulted 08/25/19 05:30 Blood Blood Culture - Preliminary Gram Positive Cocci Resulted 08/25/19 05:30 Nasal Nares Left - Final Complete 08/25/19 05:30 Nasal Nares Left - Final Complete 08/25/19 06:03 Urine,Clean Catch Urine Culture - Preliminary Resulted 08/25/19 05:30 Rectum VRE Culture - Final NO VANCOMYCIN RESISTANT ENTEROCOCCUS ... Complete Subjective ROS Limited/Unobtainable: No Allergies: Coded Allergies: ASPIRIN (Verified Allergy, Unknown, Altered Mental Status, 07/28/18) Objective Last 24 Hour Vital Signs Date Time Temp Pulse Resp B/P (MAP) Pulse Ox O2 Delivery O2 Flow Rate FiO2 08/29/19 14:34 125/65 08/29/19 12:00 97.9 53 24 135/50 (78) 95 08/29/19 09:57 Room Air 08/29/19 09:37 56 109/50 (69) 08/29/19 09:00 109/50 08/29/19 08:00 97.6 68 24 121/64 (83) 95 08/29/19 05:40 130/54 08/29/19 04:00 97.5 54 24 130/54 (79) 100 08/29/19 00:00 97.9 55 24 107/49 (68) 94 08/28/19 21:07 144/68 08/28/19 21:00 Room Air 08/28/19 20:00 98.3 57 18 144/68 (93) 98 Intake and Output 08/28/19 08/29/19 19:00 07:00 Intake Total 542.5 ml 790 ml Output Total 1000 ml Balance -457.5 ml 790 ml Intake Free Water 30 ml IV Total 82.5 ml Tube Feeding 360 ml 660 ml Other 100 ml 100 ml Output Urine Total 1000 ml # Bowel Movements 4 Laboratory Tests 08/29/19 11:40: White Blood Count 11.6H, Red Blood Count 4.21, Hemoglobin 14.2, Hematocrit 41.4 , Mean Corpuscular Volume 98, Mean Corpuscular Hemoglobin 33.7H, Mean Corpuscular Hemoglobin Concent 34.3, Red Cell Distribution Width 13.9, Platelet Count 112L, Mean Platelet Volume 10.3H, Neutrophils (%) (Auto) 40.7L, Lymphocytes (%) (Auto) 52.6H, Monocytes (%) (Auto) 4.3, Eosinophils (%) (Auto) 0.9, Basophils (%) (Auto) 1.5, Sodium Level 140, Potassium Level 4.2, Chloride Level 108H, Carbon Dioxide Level 23, Anion Gap 9, Blood Urea Nitrogen 22H, Creatinine 0.7, Estimat Glomerular Filtration Rate > 60, Glucose Level 142H, Calcium Level 8.9, Total Bilirubin 0.5, Aspartate Amino Transf (AST/SGOT) 24, Alanine Aminotransferase (ALT/SGPT) 56, Alkaline Phosphatase 114, Total Protein 5.8L, Albumin 2.4L, Globulin 3.4, Albumin/Globulin Ratio 0.7L Current Medications Medications (Trade) Dose Ordered Sig/Juan Route PRN Reason Start Time Stop Time Status Last Admin Dose Admin Acetaminophen (Tylenol) 650 mg Q4H PRN ORAL Prn Headache/Temp > 101 08/28/19 19:30 09/24/19 11:29 Al Hydroxide/Mg Hydroxide (Mylanta) 30 ml Q4H PRN ORAL STOMACH PAIN 08/28/19 19:00 09/24/19 18:59 Dextrose (Dextrose 50%) 25 ml Q30M PRN IV Hypoglycemia 08/28/19 19:15 09/24/19 11:44 Dextrose (Dextrose 50%) 50 ml Q30M PRN IV Hypoglycemia 08/28/19 19:15 09/24/19 11:44 Fluconazole (Diflucan) 200 mg DAILY GT 08/29/19 13:30 09/05/19 13:29 08/29/19 14:08 Hydralazine HCl (Apresoline) 25 mg EVERY 8 HOURS ORAL 08/28/19 22:00 09/24/19 13:59 08/29/19 14:34 Insulin Aspart (NovoLOG) EVERY 6 HOURS SUBQ 08/29/19 00:00 09/24/19 16:29 08/29/19 06:23 Lansoprazole (Prevacid) 30 mg DAILY ORAL 08/29/19 09:00 09/25/19 08:59 08/29/19 09:44 Levothyroxine Sodium (Synthroid) 100 mcg Q24H ORAL 08/29/19 06:30 09/25/19 06:29 08/29/19 05:40 Losartan Potassium (Cozaar) 50 mg DAILY ORAL 08/29/19 09:00 09/25/19 08:59 Piperacillin Sod/ Tazobactam Sod 3.375 gm/Sodium Chloride 110 ml @ 27.5 mls/hr Q8H IVPB 08/28/19 22:00 09/04/19 21:59 08/29/19 14:17 King Veliz MD Aug 29, 2019 16:31
[2019-08-30] VITALS: BP 123/94
[2019-08-30 04:00] VITALS: BP 118/57
[2019-08-30] MEDS: Piperacillin/Tazobactam 3.375 GM in NS 110 ML IVPB SCH ×2 (05:26→14:01)
[2019-08-30] MEDS: NovoLOG Insulin Flexpen SUBQ SCH ×3 (06:00→12:00)
[2019-08-30] MEDS: HydrALAZINE 25mg tab ORAL SCH ×2 (06:10→14:00)
[2019-08-30 08:00] VITALS: BP 137/77
--- NOTE | 2019-08-30 08:56 | Pulmonology Progress Note ---
Assessment/Plan Assessment/Plan IMPRESSION: Pleural effusion, bacteremia/ sepsis, lactic acidemia, elevated troponin, possible demand ischemia, elevated liver enzymes of unclear etiology, noted transaminitis, acute renal failure, significant debility, diabetes, and hypertension. PLAN IV antibiotics on zosyn on flucon ID noted respiratory care oxygen care off load aspiration precautions GT feeds for now stable for dc back to snf impression, plan, and exam edited and reviewed in detail care discussed with RN Subjective ROS Limited/Unobtainable: Yes Allergies: Coded Allergies: ASPIRIN (Verified Allergy, Unknown, Altered Mental Status, 07/28/18) Subjective on feeds awake no clear distress + bcx noted ID noted Objective Last 24 Hour Vital Signs Date Time Temp Pulse Resp B/P (MAP) Pulse Ox O2 Delivery O2 Flow Rate FiO2 08/30/19 08:00 97.9 57 18 137/77 (97) 94 08/30/19 06:10 137/82 08/30/19 04:00 97.4 73 20 118/57 (77) 97 08/30/19 00:00 98.4 57 22 123/94 (104) 95 08/29/19 22:10 154/74 08/29/19 21:27 Room Air 08/29/19 20:00 97.7 59 22 99/65 (76) 96 08/29/19 16:00 97.8 59 23 117/57 (77) 97 08/29/19 14:34 125/65 08/29/19 12:00 97.9 53 24 135/50 (78) 95 08/29/19 09:57 Room Air 08/29/19 09:37 56 109/50 (69) 08/29/19 09:00 109/50 Intake and Output 08/29/19 08/30/19 19:00 07:00 Intake Total 780 ml 270 ml Output Total 1700 ml Balance -920 ml 270 ml Intake Free Water 60 ml 30 ml Tube Feeding 720 ml 240 ml Output Urine Total 1700 ml # Bowel Movements 1 Objective GENERAL: An ill-appearing female of advanced age. HEENT: Negative. NECK: Supple. LUNGS: Coarse breath sounds. Moderate air entry. no wheeze CARDIAC: Bradycardic without murmurs. ABDOMEN: Soft. G-tube in place. No distention. EXTREMITIES: No cyanosis or clubbing. There are contractures. SKIN: Noted. NEUROLOGICAL: more alert Laboratory Tests 08/29/19 11:40: White Blood Count 11.6H, Red Blood Count 4.21, Hemoglobin 14.2, Hematocrit 41.4 , Mean Corpuscular Volume 98, Mean Corpuscular Hemoglobin 33.7H, Mean Corpuscular Hemoglobin Concent 34.3, Red Cell Distribution Width 13.9, Platelet Count 112L, Mean Platelet Volume 10.3H, Neutrophils (%) (Auto) 40.7L, Lymphocytes (%) (Auto) 52.6H, Monocytes (%) (Auto) 4.3, Eosinophils (%) (Auto) 0.9, Basophils (%) (Auto) 1.5, Sodium Level 140, Potassium Level 4.2, Chloride Level 108H, Carbon Dioxide Level 23, Anion Gap 9, Blood Urea Nitrogen 22H, Creatinine 0.7, Estimat Glomerular Filtration Rate > 60, Glucose Level 142H, Calcium Level 8.9, Total Bilirubin 0.5, Aspartate Amino Transf (AST/SGOT) 24, Alanine Aminotransferase (ALT/SGPT) 56, Alkaline Phosphatase 114, Total Protein 5.8L, Albumin 2.4L, Globulin 3.4, Albumin/Globulin Ratio 0.7L 08/30/19 00:15: Vancomycin Level Trough 10.3 Current Medications Medications (Trade) Dose Ordered Sig/Juan Route PRN Reason Start Time Stop Time Status Last Admin Dose Admin Acetaminophen (Tylenol) 650 mg Q4H PRN ORAL Prn Headache/Temp > 101 08/28/19 19:30 09/24/19 11:29 Al Hydroxide/Mg Hydroxide (Mylanta) 30 ml Q4H PRN ORAL STOMACH PAIN 08/28/19 19:00 09/24/19 18:59 Dextrose (Dextrose 50%) 25 ml Q30M PRN IV Hypoglycemia 08/28/19 19:15 09/24/19 11:44 Dextrose (Dextrose 50%) 50 ml Q30M PRN IV Hypoglycemia 08/28/19 19:15 09/24/19 11:44 Fluconazole (Diflucan) 200 mg DAILY GT 08/29/19 13:30 09/05/19 13:29 08/29/19 14:08 Hydralazine HCl (Apresoline) 25 mg EVERY 8 HOURS ORAL 08/28/19 22:00 09/24/19 13:59 08/30/19 06:10 Insulin Aspart (NovoLOG) EVERY 6 HOURS SUBQ 08/29/19 00:00 09/24/19 16:29 08/29/19 06:23 Lansoprazole (Prevacid) 30 mg DAILY ORAL 08/29/19 09:00 09/25/19 08:59 08/29/19 09:44 Levothyroxine Sodium (Synthroid) 100 mcg Q24H ORAL 08/29/19 06:30 09/25/19 06:29 08/30/19 06:10 Losartan Potassium (Cozaar) 50 mg DAILY ORAL 08/29/19 09:00 09/25/19 08:59 Piperacillin Sod/ Tazobactam Sod 3.375 gm/Sodium Chloride 110 ml @ 27.5 mls/hr Q8H IVPB 08/28/19 22:00 09/04/19 21:59 08/30/19 05:26 Ozzie Renteria MD Aug 30, 2019 08:56
[2019-08-30] MEDS: Fluconazole 100mg tab GT SCH (09:23)
[2019-08-30] MEDS: Losartan 50mg tab ORAL SCH (09:24)
--- NOTE | 2019-08-30 10:56 | Infectious Diseases Prog Note ---
Assessment/Plan Assessment/Plan antibiotics : zosyn, fluconazole A 1. + blood cultures with staph hominis likely contaminated 2. pneumonia 3, fungal UTI 4. leucocytosis improving P 1. continue iv zosyn 1 more day 2. continue fluconazole 5 more days 3. will follow up cultures Subjective ROS Limited/Unobtainable: Yes Allergies: Coded Allergies: ASPIRIN (Verified Allergy, Unknown, Altered Mental Status, 07/28/18) Objective Vital Signs Last 24 Hour Vital Signs Date Time Temp Pulse Resp B/P (MAP) Pulse Ox O2 Delivery O2 Flow Rate FiO2 08/30/19 09:24 137/77 08/30/19 08:00 97.9 57 18 137/77 (97) 94 08/30/19 06:10 137/82 08/30/19 04:00 97.4 73 20 118/57 (77) 97 08/30/19 00:00 98.4 57 22 123/94 (104) 95 08/29/19 22:10 154/74 08/29/19 21:27 Room Air 08/29/19 20:00 97.7 59 22 99/65 (76) 96 08/29/19 16:00 97.8 59 23 117/57 (77) 97 08/29/19 14:34 125/65 08/29/19 12:00 97.9 53 24 135/50 (78) 95 Height (Feet): 5 Height (Inches): 4.00 Weight (Pounds): 124 Respiratory/Chest: lungs clear Cardiovascular: normal rate, regular rhythm, no gallop/murmur Abdomen: soft, non tender, other - GT Extremities: no edema Laboratory Tests Test 08/29/19 11:40 08/30/19 00:15 White Blood Count 11.6 K/UL (4.8-10.8) H Red Blood Count 4.21 M/UL (4.20-5.40) Hemoglobin 14.2 G/DL (12.0-16.0) Hematocrit 41.4 % (37.0-47.0) Mean Corpuscular Volume 98 FL (80-99) Mean Corpuscular Hemoglobin 33.7 PG (27.0-31.0) H Mean Corpuscular Hemoglobin Concent 34.3 G/DL (32.0-36.0) Red Cell Distribution Width 13.9 % (11.6-14.8) Platelet Count 112 K/UL (150-450) L Mean Platelet Volume 10.3 FL (6.5-10.1) H Neutrophils (%) (Auto) 40.7 % (45.0-75.0) L Lymphocytes (%) (Auto) 52.6 % (20.0-45.0) H Monocytes (%) (Auto) 4.3 % (1.0-10.0) Eosinophils (%) (Auto) 0.9 % (0.0-3.0) Basophils (%) (Auto) 1.5 % (0.0-2.0) Sodium Level 140 MMOL/L (136-145) Potassium Level 4.2 MMOL/L (3.5-5.1) Chloride Level 108 MMOL/L (98-107) H Carbon Dioxide Level 23 MMOL/L (21-32) Anion Gap 9 mmol/L (5-15) Blood Urea Nitrogen 22 mg/dL (7-18) H Creatinine 0.7 MG/DL (0.55-1.30) Estimat Glomerular Filtration Rate > 60 mL/min (>60) Glucose Level 142 MG/DL (74-106) H Calcium Level 8.9 MG/DL (8.5-10.1) Total Bilirubin 0.5 MG/DL (0.2-1.0) Aspartate Amino Transf (AST/SGOT) 24 U/L (15-37) Alanine Aminotransferase (ALT/SGPT) 56 U/L (12-78) Alkaline Phosphatase 114 U/L (46-116) Total Protein 5.8 G/DL (6.4-8.2) L Albumin 2.4 G/DL (3.4-5.0) L Globulin 3.4 g/dL Albumin/Globulin Ratio 0.7 (1.0-2.7) L Vancomycin Level Trough 10.3 ug/mL (5.0-12.0) Current Medications Medications (Trade) Dose Ordered Sig/Juan Route PRN Reason Start Time Stop Time Status Last Admin Dose Admin Acetaminophen (Tylenol) 650 mg Q4H PRN ORAL Prn Headache/Temp > 101 08/28/19 19:30 09/24/19 11:29 Al Hydroxide/Mg Hydroxide (Mylanta) 30 ml Q4H PRN ORAL STOMACH PAIN 08/28/19 19:00 09/24/19 18:59 Dextrose (Dextrose 50%) 25 ml Q30M PRN IV Hypoglycemia 08/28/19 19:15 09/24/19 11:44 Dextrose (Dextrose 50%) 50 ml Q30M PRN IV Hypoglycemia 08/28/19 19:15 09/24/19 11:44 Fluconazole (Diflucan) 200 mg DAILY GT 08/29/19 13:30 09/05/19 13:29 08/30/19 09:23 Hydralazine HCl (Apresoline) 25 mg EVERY 8 HOURS ORAL 08/28/19 22:00 09/24/19 13:59 08/30/19 06:10 Insulin Aspart (NovoLOG) EVERY 6 HOURS SUBQ 08/29/19 00:00 09/24/19 16:29 08/29/19 06:23 Lansoprazole (Prevacid) 30 mg DAILY ORAL 08/29/19 09:00 09/25/19 08:59 08/30/19 09:23 Levothyroxine Sodium (Synthroid) 100 mcg Q24H ORAL 08/29/19 06:30 09/25/19 06:29 08/30/19 06:10 Losartan Potassium (Cozaar) 50 mg DAILY ORAL 08/29/19 09:00 09/25/19 08:59 08/30/19 09:24 Piperacillin Sod/ Tazobactam Sod 3.375 gm/Sodium Chloride 110 ml @ 27.5 mls/hr Q8H IVPB 08/28/19 22:00 09/04/19 21:59 08/30/19 05:26 Samantha Velasco MD Aug 30, 2019 10:56
[2019-08-30 11:32] VITALS: BP 116/80
[2019-08-30] MEDS ORDERED: ZOSYN 3.373.375 GM/1 IVPB (13:42)
[2019-08-30 14:00] VITALS: BP 116/80
--- NOTE | 2019-08-31 15:35 | Discharge Summary ---
Discharge Summary Discharge Summary _ DATE OF ADMISSION: 08/25/2019 DATE OF DISCHARGE: 08/30/2019 DISCHARGED BY: Dr. Renteria REASON FOR ADMISSION: 88 years old female with past medical history of diabetes mellitus, hypertension , chronic encephalopathy, dysphagia, feeding by G-tube, significant debility and confusion, with DNR/DNI status, presented with altered mental status. Upon evaluation laboratory work-up revealed leukocytosis and lactic acidemia. Laboratory work also demonstrated lactic acidemia and elevated liver enzymes. Noted mildly elevated troponin -0.207. Chest x-ray revealed suspected left pleural effusion ; underlying infiltrate was not ruled out completely. Prominence of the pulmonary interstitial nonspecific unchanged presumptive chronic. Patient was admitted for further management CONSULTANTS: Internal medicine Dr. Golden [facility]: Patient admitted to medical surgical floor. Patient started on empiric antibiotic as per ID specialist recommendation. Supplemental oxygen provided and titrated to keep oximetry above 92%. Nebulizing treatment with bronchodilator provided as needed. Venous duplex bilateral lower extremity revealed no evidence of acute DVT. Abdominal ultrasound demonstrated no evidence of gallstones or dilated bile ducts or other acute or significant abnormality. Blood culture revealed Staph hominis. Influenza swab was negative. Urine culture revealed Jerica . Antibiotic regimen for pneumonia and UTI was optimized based on sensitivity as per ID specialist. Patient will need to continue antibiotic upon discharge to complete the course as per ID specialist recommendation. Blood culture with staph hominis were likely contaminant as per ID specialist Strict aspiration precaution maintained. G-tube feeding continued. Patient was able to tolerate tube feeding. Supportive care provided. SNF medication continued. Renal parameters and electrolytes were closely monitored. Patient was hydrated. Nephrotoxins were avoided. Prior to discharge BUN from 43 down to 22, creatinine remained stable. All electrolytes corrected. Patient was closely monitored Overall prognosis was poor, and conservative approach to treatment was chosen. Patient clinically stabilized and was ready for discharge to shelter facility for continuation of care. FINAL DIAGNOSES: Possibly sepsis Pneumonia Fungal UTI Lactic acidosis Elevated troponin , likely due to demand ischemia Acute renal failure on chronic renal disease Elevated liver enzyme of unclear etiology Diabetes mellitus Hypertension Dementia with behavioral disturbances Acute metabolic encephalopathy DISCHARGE MEDICATIONS: See Medication Reconciliation list. DISCHARGE INSTRUCTIONS: Patient was discharged to the shelter facility. Follow up with medical doctor at the facility. I have been assigned to dictate discharge summary for this account. I was not involved in the patient's management. Rossi Blanco NP Aug 31, 2019 15:35
== END 2019-08-30 15:36 | DRG 871 ==
LOC: EDBD 05:27 → EMR 05:38 → EDBEDREQSVC 06:18 → EDBEDREQ 06:18 → 2W 06:38 → 2E 08-26 19:51 → 4E 08-28 18:45
DX: A41.9 Sepsis, unspecified organism (principal); G93.41 Metabolic encephalopathy; J18.9 Pneumonia, unspecified organism; I24.8 Other forms of acute ischemic heart disease; N17.9 Acute kidney failure, unspecified; B37.49 Other urogenital candidiasis; F03.91 Unspecified dementia, unspecified severity, with behavioral disturbance; Z43.1 Encounter for attention to gastrostomy; Z66 Do not resuscitate; I12.9 Hypertensive chronic kidney disease with stage 1 through stage 4 chronic kidney disease, or unspecified chronic kidney disease; E11.22 Type 2 diabetes mellitus with diabetic chronic kidney disease; N18.9 Chronic kidney disease, unspecified; R79.89 Other specified abnormal findings of blood chemistry; K57.90 Diverticulosis of intestine, part unspecified, without perforation or abscess without bleeding; E03.9 Hypothyroidism, unspecified
CPT/HCPCS: 36415; 71045; 76700; 80048; 80053; 80202; 81003; 82550; 82553; 82962; 83605; 84484; 85025; 86710; 87040; 87081; 87086; 87181; 93005; 93970; 96365; 99291; J1815; J7030